=== PATIENT | female | born 1930 | race Caucasian/White ===

== ENCOUNTER 2017-03-15 12:08 | Inpatient (IN) | payer MEDICARE, OTHER ==
[~2017-03-15] VITALS: Ht 152.4 cm; Wt 55.8 kg
[2017-03-15] VITALS (9 sets, daily range): BP systolic 108–172; BP diastolic 53–76
[~2017-03-15 12:08] MED LIST: AMIO200T2 PO; ASPI-482 PO; ATOR20TA58 PO; CLOP75TA PO; HYDR-2666 PO; ISOS60TA2 PO; LATA2.5D3 EACHEYE; LEVO100T5 PO; LEVO75TA5 PO; LISI10TA2 PO; MAGN2400 PO; PANT40TA5 PO; RANO500T2 PO; SIMV20TA PO; SIMV40TA3 PO
[2017-03-15] MEDS ORDERED: IV NORMAL SALINE 1000ML BAG 1,000 ML IV ONE (12:15)
--- NOTE | 2017-03-15 12:33 | PHYS DOC ---
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 Patient states that her symptoms started approximately 1-1.5 hours prior to arrival. Patient states that she notices symptoms after taking a shower this morning but is unable to determine what time that this occurred. A daughter however was able to confirm that onset of symptoms took place within the aforementioned window. Patient has history of atrial fibrillation and currently has a pacemaker in place. Patient also has history of myocardial infarction and follows with Dr. Groves of cardiology. Patient is reportedly able to ambulate independently and her current mental status is significantly distorted compared to baseline. Patient denies any pain currently. Patient states that she is having numbness along the left side of her face and left upper extremity. Review of Systems Review of Systems Constitutional: Denies fever or chills [] Eyes: Denies change in visual acuity, redness, or eye pain [] HENT: Denies nasal congestion or sore throat [] Respiratory: Denies cough or shortness of breath [] Cardiovascular: No additional information not addressed in HPI [] GI: Denies abdominal pain, nausea, vomiting, bloody stools or diarrhea [] : Denies dysuria or hematuria [] Musculoskeletal: Denies back pain or joint pain [] Integument: Denies rash or skin lesions [] Neurologic: Left-sided weakness, dysarthria, numbness [] Current Medications Current Medications Current Medications Medications (Trade) Dose Ordered Sig/[place] Start Time Stop Time Status Last Admin Dose Admin Alteplase, Recombinant 0 ml @ 0 mls/hr Q1H 03/15/17 12:45 03/15/17 12:52 DC 03/15/17 13:14 0 MLS/HR Diphenhydramine HCl (Benadryl) 25 mg 1X ONCE 03/15/17 12:45 03/15/17 12:52 DC 03/15/17 12:50 25 MG Famotidine (Pepcid) 20 mg 1X ONCE 03/15/17 12:45 03/15/17 12:52 DC 03/15/17 12:50 20 MG Hydrocortisone Sodium Succinate (Solu-Cortef) 125 mg 1X ONCE 03/15/17 13:00 03/15/17 13:01 DC 03/15/17 12:49 125 MG Info (Do NOT chart on this entry -- for MONITORING) 1 each PRN DAILY PRN 03/15/17 13:15 03/17/17 13:14 Iohexol (Omnipaque 300 Mg/ml) 60 ml 1X ONCE 03/15/17 14:45 03/15/17 14:46 DC 03/15/17 14:43 60 ML Iohexol (Omnipaque 350 Mg/ml) 75 ml 1X ONCE 03/15/17 13:15 03/15/17 13:16 DC Methylprednisolone Sodium Succinate (Solu-Medrol 125mg Vial) 125 mg STK-MED ONCE 03/15/17 12:46 03/15/17 12:48 DC Ondansetron HCl (Zofran) 4 mg PRN Q8HRS PRN 03/15/17 15:00 03/16/17 14:59 Sodium Chloride 50 ml @ 0 mls/hr 1X ONCE 03/15/17 12:45 03/15/17 12:52 DC 03/15/17 14:11 45.6 MLS/HR Allergies Allergies Allergies Coded Allergies Type Severity Reaction Last Updated Verified iodine Allergy Intermediate 07/13/15 Yes codeine Adverse Reaction Intermediate N/V 07/13/15 Yes meperidine Adverse Reaction Intermediate N/V 07/13/15 Yes morphine Adverse Reaction Intermediate N/V 07/13/15 Yes Physical Exam Physical Exam Constitutional: Alert, afebrile, appears ill. [] HENT: Normocephalic, atraumatic, bilateral external ears normal, oropharynx moist, no oral exudates, nose normal. [] Eyes: PERRLA, EOMI, conjunctiva normal, no discharge. [] Neck: Normal range of motion, no tenderness, supple, no stridor. [] Cardiovascular: Normal rate, irregular rhythm, no murmur [] Lungs & Thorax: Bilateral breath sounds clear to auscultation [] Abdomen: Bowel sounds normal, soft, no tenderness, no masses, no pulsatile masses. [] Skin: Warm, dry, no erythema, no rash. [] Back: No tenderness, no CVA tenderness. [] Extremities: No tenderness, no cyanosis, no clubbing, ROM intact, no edema. [] Neurologic: Alert and oriented X 3, left-sided facial droop present, dysarthria present, mild aphasia present, left pronator drift in upper extremity present, decreased sensation along left face and left upper extremity to light touch, equal events traffic controller strength bilaterally. [] Current Patient Data Vital Signs Vital Signs Date Time Temp Pulse Resp B/P (MAP) Pulse Ox O2 Delivery O2 Flow Rate FiO2 03/15/17 14:48 60 16 137/65 (89) 100 Nasal Cannula 2.0 03/15/17 12:08 97.3 97.3 Lab Values Laboratory Tests Test 03/15/17 12:24 03/15/17 12:41 03/15/17 14:15 White Blood Count 6.3 x10^3/uL (4.0-11.0) Red Blood Count 2.42 x10^6/uL (3.50-5.40) L Hemoglobin 7.9 g/dL (12.0-15.5) L Hematocrit 23.6 % (36.0-47.0) L Mean Corpuscular Volume 97 fL (79-100) Mean Corpuscular Hemoglobin 33 pg (25-35) Mean Corpuscular Hemoglobin Concent 34 g/dL (31-37) Red Cell Distribution Width 16.3 % (11.5-14.5) H Platelet Count 201 x10^3/uL (140-400) Neutrophils (%) (Auto) 67 % (31-73) Lymphocytes (%) (Auto) 26 % (24-48) Monocytes (%) (Auto) 5 % (0-9) Eosinophils (%) (Auto) 1 % (0-3) Basophils (%) (Auto) 1 % (0-3) Neutrophils # (Auto) 4.2 x10^3uL (1.8-7.7) Lymphocytes # (Auto) 1.6 x10^3/uL (1.0-4.8) Monocytes # (Auto) 0.3 x10^3/uL (0.0-1.1) Eosinophils # (Auto) 0.1 x10^3/uL (0.0-0.7) Basophils # (Auto) 0.1 x10^3/uL (0.0-0.2) Prothrombin Time 13.0 SEC (11.7-14.0) Prothrombin Time INR 1.0 (0.8-1.1) PTT 22 SEC (24-38) L Sodium Level 138 mmol/L (136-145) Potassium Level 4.0 mmol/L (3.5-5.1) Chloride Level 105 mmol/L (98-107) Carbon Dioxide Level 23 mmol/L (21-32) Anion Gap 10 (6-14) 17 mmol/L (6-14) H Blood Urea Nitrogen 23 mg/dL (7-20) H Creatinine 0.9 mg/dL (0.6-1.0) Estimated GFR (Cockcroft-Gault) 59.5 BUN/Creatinine Ratio 26 (6-20) H Glucose Level 101 mg/dL (70-99) H 94 mg/dL (70-99) Calcium Level 8.9 mg/dL (8.5-10.1) Magnesium Level 2.4 mg/dL (1.8-2.4) Total Bilirubin 0.5 mg/dL (0.2-1.0) Aspartate Amino Transferase (AST) 21 U/L (15-37) Alanine Aminotransferase (ALT) 23 U/L (14-59) Alkaline Phosphatase 78 U/L (46-116) Total Protein 6.1 g/dL (6.4-8.2) L Albumin 3.3 g/dL (3.4-5.0) L Albumin/Globulin Ratio 1.2 (1.0-1.7) POC Hemoglobin 7.1 g/dL (12-15) L POC Hematocrit 21 % (36-40) L POC Sodium 138 mmol/L (135-145) POC Potassium 3.9 mmol/L (3.5-5.0) POC Chloride 107 mmol/L (98-110) POC Total CO2 19 mmol/L (23-32) L POC Blood Urea Nitrogen 22 mg/dL (8-26) POC Creatinine 0.8 mg/dL (0.5-1.4) POC Ionized Calcium (Stephane) 1.12 mmol/L (1.13-1.32) L Urine Collection Type Unknown Urine Color Straw Urine Clarity Clear Urine pH 7.5 Urine Specific [place] 1.010 Urine Protein Negative mg/dL (NEG-TRACE) Urine Glucose (UA) Negative mg/dL (NEG) Urine Ketones (Stick) Negative mg/dL (NEG) Urine Blood Negative (NEG) Urine Nitrite Negative (NEG) Urine Bilirubin Negative (NEG) Urine Urobilinogen Dipstick 0.2 mg/dL (0.2 mg/dL) Urine Leukocyte Esterase Trace (NEG) Urine RBC 0 /HPF (0-2) Urine WBC Occ /HPF (0-4) Urine Squamous Epithelial Cells Occ /LPF Urine Bacteria Few /HPF (0-FEW) Urine Mucus Slight /LPF Laboratory Tests 03/15/17 12:24 Laboratory Tests 03/15/17 12:24 03/15/17 12:41 EKG EKG Interpreted by me: Heart rate 60, atrial fibrillation, leftward axis, no acute ST/T-wave abnormalities present [] Radiology/Procedures Radiology/Procedures [place] [id number] IMAGING REPORT Signed PATIENT: ANDREINA BENNETT ACCOUNT: [id number] : 1930 LOCATION: ER AGE: 86 SEX: F EXAM STATUS: PRE ER ORD. PHYSICIAN: DESTINI PETE MD REASON: weakness PROCEDURE: PORTABLE CHEST 1V Indication left-sided weakness. Suspect CVA. Protocol exam. A single view of the chest was obtained. Comparison is made to an exam almost 2 years earlier. Postoperative changes are noted. There is a bipolar cardiac pacing device. A cardiac stent is noted. Pulmonary vessels are normal. There is no acute parenchymal infiltrate. Significant pleural fluid is not present and there is no pneumothorax. IMPRESSION: No acute finding apparent in the chest DICTATED and SIGNED BY: SHIRLENE BENITO MD DATE: 03/15/17 3094 CC: JOCY MASON MD; DESTINI PETE MD ~ [address] [id number] IMAGING REPORT Signed PATIENT: ANDREINA BENNETT ACCOUNT: [id number] : 1930 LOCATION: ER AGE: 86 SEX: F EXAM STATUS: PRE ER ORD. PHYSICIAN: DESTINI PETE MD REASON: facial droop PROCEDURE: CT CODE STROKE HEAD WO Indication left facial droop. Code stroke Noncontrast images of the head were obtained and are compared to a study 08/09/2016. Critical results were communicated to Dr. Pete, in the emergency room, at the time of dictation. The calvarium appears unremarkable. The visualized paranasal sinuses appear normal. There is no subdural or epidural hematoma. No mass or midline shift is seen. There is no evidence of hemorrhage. There are lucencies in the deep white matter compatible with microvascular disease. An acute finding is not apparent on noncontrast imaging. IMPRESSION: No acute finding seen on noncontrast CT images of the head PQRS Compliance Statement: One or more of the following individualized dose reduction techniques were utilized for this examination: 1. Automated exposure control 2. Adjustment of the mA and/or kV according to patient size 3. Use of iterative reconstruction technique DICTATED and SIGNED BY: SHIRLENE BENITO MD DATE: 03/15/17 1235 CC: JOCY MASON MD; DESTINI PETE MD ~ [address] [id number] IMAGING REPORT Signed PATIENT: ANDREINA BENNETT ACCOUNT: [id number] : 1930 LOCATION: ER AGE: 86 SEX: F EXAM STATUS: REG ER ORD. PHYSICIAN: DESTINI PETE MD REASON: left-sided weakness PROCEDURE: CT ANGIOGRAPHY HEAD AND NECK Indication left-sided weakness and confusion. Suspect CVA. CTA targeted to the great vessels off the arch and carotid arteries through the [place] was performed. Images were reformatted in the coronal and sagittal planes. Volume rendered images were also generated and reviewed. 60 cc of Omnipaque 300 was administered intravenously. The patient reportedly is allergic dye diameter and was premedicated under the supervision of the members of the department of emergency medicine. The lung apices are clear. There is no significant soft tissue finding seen in the neck. There are degenerative changes in the cervical spine. The origination of the innominate artery off the arch is unremarkable. The origin of the left common carotid is unremarkable as is the origination of the left subclavian. Plaquing along the arch of the aorta is noted. The innominate artery bifurcates unremarkably into the right common carotid and right subclavian arteries. The visualized portion of the subclavian is unremarkable. The right common carotid is unremarkable. There is slight plaquing at the bifurcation. There is no significant stenosis. The right internal carotid is unremarkable. The horizontal and cavernous segments are unremarkable. Some calcification is seen associated with the cavernous segment and the supraclinoid segment. The left common carotid is also unremarkable. Modest plaquing is seen at the bifurcation but no significant stenosis. The left internal carotid demonstrates moderate plaquing but no marked stenosis. The horizontal and cavernous segments appear normal. There is some calcification seen associated with the cavernous and supraclinoid segments. The vertebral arteries originate unremarkably off their respective subclavian arteries. The left vertebral is dominant. The right vertebral is quite small. The intracranial portion of the right vertebral is not well demonstrated but it appears to unite with the left vertebral. The basilar artery is unremarkable. A 1 and M1 segments bilaterally appear unremarkable. No significant vascular anomaly is seen supratentorially. IMPRESSION: No significant arterial narrowing is seen associated with the carotid systems. The right vertebral is quite small and the left is dominant. No significant intracranial vascular anomaly is seen Note: Stenosis calculations for CT, MR and conventional angiography are based upon determination of the distal ICA diameter in accordance with the NASCET methodology. Stenosis calculations for doppler studies are derived from validated velocity criteria which are known to correlate with NASCET methodology of determining stenosis. DICTATED and SIGNED BY: SHIRLENE BENITO MD DATE: 03/15/17 0530 CC: JOCY MASON MD; DESTINI PETE MD ~ [] Course & Med Decision Making Course & Med Decision Making Pertinent Labs and Imaging studies reviewed. (See chart for details) The patient is displaying signs concerning for acute CVA. Patient's NIH score was 6. I consulted Dr. Webber at 4800. He agreed with initiation of TPA therapy and asked due to the patient's symptoms that she be offered interventional therapy and clot retrieval. Patient was administered TPA within 3 hours of onset of symptoms. I contacted Dr. Vargas at 1235. After speaking with him, he agreed with initiation of TPA therapy. He recommended that a CT angiogram be performed and stated that if there was evidence of large vessel occlusion the patient may be a candidate, however there is only distal occlusion the patient would need medical management only. After speaking with the family and the patient, the patient underwent a CT angiogram of the head and neck after being pretreated with Solu-Medrol, Benadryl, and Pepcid due to iodine allergy. Patient underwent CTA imaging which did not reveal a large vessel occlusion. After receiving the results I spoke with Dr. Vargas at 1445. He agreed that the patient would not be a candidate for interventional therapy and recommended medical management. He stated that it would be appropriate for the patient to remain at [facility] for further care. I also contacted Dr. Webber with results and he was in agreement and agreed to consult on patient in hospital. Patient was admitted to Dr. bauman and will be transferred to ICU for further care. Critical care time excluding procedures: 100 minutes Dragon Disclaimer Dragon Disclaimer This electronic medical record was generated, in whole or in part, using a voice recognition dictation system. Departure Departure Impression: Primary Impression: Acute CVA (cerebrovascular accident) Disposition: ADMITTED INPATIENT Admitting Physician: Carmle Bauman Condition: CRITICAL Referrals: JOCY MASON MD (PCP) DESTINI PETE MD March 15, 2017 12:33
[2017-03-15 12:38] LABS: BASO # 0.1 x10^3/uL (0.0-0.2); BASO % 1 % (0-3); EOS % 1 % (0-3); HEMATOCRIT 23.6 % (36.0-47.0); HEMOGLOBIN 7.9 g/dL (12.0-15.5); LYMPH # 1.6 x10^3/uL (1.0-4.8); LYMPH % 26 % (24-48); MEAN CORPUSCULAR HEMOGLOBIN 33 pg (25-35); MEAN CORPUSCULAR HGB CONC 34 g/dL (31-37); MEAN CORPUSCULAR VOLUME 97 fL (79-100); MONO % 5 % (0-9); NEUT % 67 % (31-73); PLATELET COUNT 201 x10^3/uL (140-400); RED BLOOD COUNT 2.42 x10^6/uL (3.50-5.40); RED CELL DISTRIBUTION WIDTH 16.3 % (11.5-14.5); WHITE BLOOD COUNT 6.3 x10^3/uL (4.0-11.0)
--- NOTE | 2017-03-15 12:42 | RAD ---
Indication left facial droop. Code stroke Noncontrast images of the head were obtained and are compared to a study 08/09/2016. Critical results were communicated to Dr. Pete, in the emergency room, at the time of dictation. The calvarium appears unremarkable. The visualized paranasal sinuses appear normal. There is no subdural or epidural hematoma. No mass or midline shift is seen. There is no evidence of hemorrhage. There are lucencies in the deep white matter compatible with microvascular disease. An acute finding is not apparent on noncontrast imaging. IMPRESSION: No acute finding seen on noncontrast CT images of the head PQRS Compliance Statement: One or more of the following individualized dose reduction techniques were utilized for this examination: 1. Automated exposure control 2. Adjustment of the mA and/or kV according to patient size 3. Use of iterative reconstruction technique
[2017-03-15 12:44] LABS: POTASSIUM ISTAT 3.9 mmol/L (3.5-5.0)
--- NOTE | 2017-03-15 12:44 | RAD ---
Indication left-sided weakness. Suspect CVA. Protocol exam. A single view of the chest was obtained. Comparison is made to an exam almost 2 years earlier. Postoperative changes are noted. There is a bipolar cardiac pacing device. A cardiac stent is noted. Pulmonary vessels are normal. There is no acute parenchymal infiltrate. Significant pleural fluid is not present and there is no pneumothorax. IMPRESSION: No acute finding apparent in the chest
[2017-03-15] MEDS ORDERED: ALTEPLASE IV SCH (12:45)
[2017-03-15] MEDS ORDERED: ALTEPLASE IV ONE (12:45)
[2017-03-15] MEDS ORDERED: diphenhydrAMINE 50 MG/ML VIAL IVP ONE (12:45)
[2017-03-15] MEDS ORDERED: FAMOTIDINE 20 MG/2 ML VIAL IVP ONE (12:45)
[2017-03-15] MEDS ORDERED: methylPREDNISolone SOD SUCC PF 125 MG/2 ML VIAL. IV ONE (12:45)
[2017-03-15] MEDS ORDERED: IV NORMAL SALINE 50ML 50 ML IV ONE (12:45)
[2017-03-15] MEDS ORDERED: methylPREDNISolone SOD SUCC PF 125 MG/2 ML VIAL. ONE (12:46)
[2017-03-15 12:48] LABS: CALCIUM 8.9 mg/dL (8.5-10.1); CREATININE 0.9 mg/dL (0.6-1.0); GFR 59.5
[2017-03-15 12:56] LABS: ALBUMIN 3.3 g/dL (3.4-5.0); ALBUMIN/GLOBULIN RATIO 1.2 (1.0-1.7); MAGNESIUM 2.4 mg/dL (1.8-2.4); TOTAL BILIRUBIN 0.5 mg/dL (0.2-1.0); TOTAL PROTEIN 6.1 g/dL (6.4-8.2)
[2017-03-15] MEDS ORDERED: HYDROCORTISONE SOD SUCC/PF 100 MG/2 ML VIAL. IV ONE (13:00)
[2017-03-15] MEDS ORDERED: CONTRAST GIVEN MC PRN (13:15)
[2017-03-15] MEDS ORDERED: IOHEXOL 350 MG/ML 100 ML VIAL. IV ONE (13:15)
--- NOTE | 2017-03-15 13:26 | PDOC2 ---
NEUROLOGY CONSULT Date of Admission Date of Admission DATE: 03/15/17 TIME: 13:15 Reason for Consult Reason for Consult: Stroke symptoms Referring Physician Referring Physician: Dr. Pete Source Source: Caregiver, Chart review, Patient History of Present Illness History of Present Illness The patient is an 86-year-old right-handed female who was taking a shower and noticed shortness of breath and the numbness of her whole body, worse on the left. She has been more confused and complains of blurred vision. She had a transient ischemic attack in January 2015 with negative workup. She was numb on the left side done. I saw her in July 2015 for numbness the entire body and my impression was a conversion disorder. The patient also had a stroke in her 20s with 5 days of left-sided weakness, then. She denies headache, diplopia , dysphagia, but has trouble understanding speech and her speech has been slurred this time. She has a history of cardiac disease and had some shortness of breath last night Past Medical History Cardiovascular: CAD, HTN CENTRAL NERVOUS SYSTEM: CVA, TIA, Other (conversion reaction) Hepatobiliary: Other (elevated transaminases last year, resolving) Musculoskeletal: low back pain, Osteoarthritis ENT: Other (glaucoma) Endocrine: Hypothyroidism Past Surgical History Past Surgical History: Pacemaker (and defibrillator), Appendectomy, CABG, Total knee replacement (right), Tonsillectomy, Hysterectomy, Other (removal of temporal lobe tumor, coronary stent, lobectomy, colonic polyps, sacroplasty) Family History Family History: No pertinent hx Social History Social History , lives alone, no alcohol or tobacco Current Medications Current Medications Current Medications Sodium Chloride 1,000 ml @ 125 mls/hr 1X ONCE IV Last administered on 12:51; Start 03/15/17 at 12:15; Stop 03/15/17 at 20:14 Alteplase, Recombinant 0 ml @ 0 mls/hr 1X ONCE IV Last administered on 13:08; Start 03/15/17 at 12:45; Stop 03/15/17 at 12:51; Status DC Alteplase, Recombinant 0 ml @ 0 mls/hr Q1H IV Last administered on 03/15/17 13: 14; Start 03/15/17 at 12:45; Stop 03/15/17 at 12:52; Status DC Sodium Chloride 50 ml @ 0 mls/hr 1X ONCE IV ; Start 03/15/17 at 12:45; Stop 03/15 at 12:52; Status DC Methylprednisolone Sodium Succinate (Solu-Medrol 125mg Vial) 125 mg 1X ONCE IV ; Start 03/15/17 at 12:45; Stop 03/15/17 at 12:48; Status DC Famotidine (Pepcid) 20 mg 1X ONCE IVP Last administered on 03/15/17 12:50; Start 03/15/17 at 12:45; Stop 03/15/17 at 12:52; Status DC Diphenhydramine HCl (Benadryl) 25 mg 1X ONCE IVP Last administered on 12:50; Start 03/15/17 at 12:45; Stop 03/15/17 at 12:52; Status DC Hydrocortisone Sodium Succinate (Solu-Cortef) 125 mg 1X ONCE IV Last administered on 03/15/17 12:49; Start 03/15/17 at 13:00; Stop 03/15/17 at 13:01; Status DC Methylprednisolone Sodium Succinate (Solu-Medrol 125mg Vial) 125 mg STK-MED ONCE .ROUTE ; Start 03/15/17 at 12:46; Stop 03/15/17 at 12:48; Status DC Iohexol (Omnipaque 350 Mg/ml) 75 ml 1X ONCE IV ; Start 03/15/17 at 13:15; Stop 03/15/17 at 13:16 Info (Do NOT chart on this entry -- for MONITORING) 1 each PRN DAILY PRN MC SEE COMMENTS; Start 03/15/17 at 13:15; Stop 03/17/17 at 13:14 Active Scripts Active Reported Hydrocodone-Apap 5-325 (Hydrocodone Bit/Acetaminophen) 1 Each Tablet 1 Tab PO PRN Q6HRS PRN Levothyroxine Sodium 75 Mcg Tablet 75 Mcg PO DAILYAC Milk Of Magnesia (Magnesium Hydroxide) 2,400 Mg/10 Ml Oral.susp 2,400 Mg PO DAILY PRN Atorvastatin Calcium 20 Mg Tablet 1 Mg PO HS Isosorbide Mononitrate Er (Isosorbide Mononitrate) 60 Mg Tab.er.24h 1 Mg PO HS Amiodarone Hcl 200 Mg Tablet 0.5 Tab PO DAILY Pantoprazole Sodium 40 Mg Tablet.dr 1 Tab PO DAILY LAST DOSE GIVEN: DATE: 2014 TIME: 9:00 AM NEXT DOSE DUE: DATE: 2014 TIME: 9:00 AM Aspir 81 (Aspirin) 81 Mg Tablet.dr 1 Tab PO DAILY LAST DOSE GIVEN: DATE: 2014 TIME: 9:00 AM NEXT DOSE DUE: DATE: 2014 TIME: 9:00 AM Clopidogrel (Clopidogrel Bisulfate) 75 Mg Tablet 1 Tab PO DAILY LAST DOSE GIVEN: DATE: 2014 TIME: 9:00 PM NEXT DOSE DUE: DATE: 2014 TIME: 9:00 PM Allergies Allergies: Coded Allergies: iodine (Verified Allergy, Intermediate, 07/13/15) codeine (Verified Adverse Reaction, Intermediate, N/V, 07/13/15) meperidine (Verified Adverse Reaction, Intermediate, N/V, 07/13/15) morphine (Verified Adverse Reaction, Intermediate, N/V, 07/13/15) ROS Review of System Patient denies fevers, chills, weight loss, dyspnea, angina, abdominal pain, change in bowels, or dysuria. 14 point review of systems is negative. Physical Exam Physical Examination PHYSICAL EXAMINATION: Vital signs: see above. General appearance is normal and in no acute distress. HEENT: Normocephalic and nontraumatic. Eyes, nose, ears, and throat are unremarkable. Neck is supple. No lymphadenopathy. No bruits are heard over the carotid artery. No crepitus. NEUROLOGICAL EXAMINATION: Mental Status Examination: Alert. Oriented to time, place, and person. She does have some trouble answering questions, she does follow commands, she complained she cannot understand what I am saying, but she does follow all commands. Pupils are equal round and reactive to light and accommodation. Funduscopic exam: No papilledema. Extraocular movements are intact. Visual field exam shows no defect on the direct confrontation, but she complains of poor visual acuity bilaterally. No motor or sensory deficits on the facial exam. Uvula in the midline and the soft palate elevated symmetrically. No deviation of the tongue to any direction. Gross hearing is normal. Shoulder shrug normal. Muscle tone is normal. Muscle strength is 5. Deep tendon reflexes are 2+ all around. Plantar reflex is with flexion response bilaterally. [id number] test: She cannot see my fingers, she claims, but she had again no trouble with visual [place] to confrontation. Alternative movements are accurate. Gait not tested. Sensory exam shows left hemisensory loss. Vitals VITALS Vital Signs Date Time Temp Pulse Resp B/P (MAP) Pulse Ox O2 Delivery O2 Flow Rate FiO2 03/15/17 12:08 97.3 69 18 183/74 (110) 100 Room Air 97.3 Labs Labs Laboratory Tests Test 03/15/17 12:24 03/15/17 12:41 White Blood Count 6.3 x10^3/uL (4.0-11.0) Red Blood Count 2.42 x10^6/uL (3.50-5.40) Hemoglobin 7.9 g/dL (12.0-15.5) Hematocrit 23.6 % (36.0-47.0) Mean Corpuscular Volume 97 fL (79-100) Mean Corpuscular Hemoglobin 33 pg (25-35) Mean Corpuscular Hemoglobin Concent 34 g/dL (31-37) Red Cell Distribution Width 16.3 % (11.5-14.5) Platelet Count 201 x10^3/uL (140-400) Neutrophils (%) (Auto) 67 % (31-73) Lymphocytes (%) (Auto) 26 % (24-48) Monocytes (%) (Auto) 5 % (0-9) Eosinophils (%) (Auto) 1 % (0-3) Basophils (%) (Auto) 1 % (0-3) Neutrophils # (Auto) 4.2 x10^3uL (1.8-7.7) Lymphocytes # (Auto) 1.6 x10^3/uL (1.0-4.8) Monocytes # (Auto) 0.3 x10^3/uL (0.0-1.1) Eosinophils # (Auto) 0.1 x10^3/uL (0.0-0.7) Basophils # (Auto) 0.1 x10^3/uL (0.0-0.2) Prothrombin Time 13.0 SEC (11.7-14.0) Prothromb Time International Ratio 1.0 (0.8-1.1) Activated Partial Thromboplast Time 22 SEC (24-38) Sodium Level 138 mmol/L (136-145) Potassium Level 4.0 mmol/L (3.5-5.1) Chloride Level 105 mmol/L (98-107) Carbon Dioxide Level 23 mmol/L (21-32) Anion Gap 10 (6-14) 17 mmol/L (6-14) Blood Urea Nitrogen 23 mg/dL (7-20) Creatinine 0.9 mg/dL (0.6-1.0) Estimated GFR (Cockcroft-Gault) 59.5 BUN/Creatinine Ratio 26 (6-20) Glucose Level 101 mg/dL (70-99) 94 mg/dL (70-99) Calcium Level 8.9 mg/dL (8.5-10.1) Magnesium Level 2.4 mg/dL (1.8-2.4) Total Bilirubin 0.5 mg/dL (0.2-1.0) Aspartate Amino Transf (AST/SGOT) 21 U/L (15-37) Alanine Aminotransferase (ALT/SGPT) 23 U/L (14-59) Alkaline Phosphatase 78 U/L (46-116) Total Protein 6.1 g/dL (6.4-8.2) Albumin 3.3 g/dL (3.4-5.0) Albumin/Globulin Ratio 1.2 (1.0-1.7) Bedside Hemoglobin 7.1 g/dL (12-15) Bedside Hematocrit 21 % (36-40) Bedside Sodium 138 mmol/L (135-145) Bedside Potassium 3.9 mmol/L (3.5-5.0) Bedside Chloride 107 mmol/L (98-110) Bedside Total CO2 19 mmol/L (23-32) Bedside Blood Urea Nitrogen 22 mg/dL (8-26) Bedside Creatinine 0.8 mg/dL (0.5-1.4) Bedside Ionized Calcium (Stephane) 1.12 mmol/L (1.13-1.32) Laboratory Tests Test 03/15/17 12:24 03/15/17 12:41 White Blood Count 6.3 x10^3/uL (4.0-11.0) Red Blood Count 2.42 x10^6/uL (3.50-5.40) Hemoglobin 7.9 g/dL (12.0-15.5) Hematocrit 23.6 % (36.0-47.0) Mean Corpuscular Volume 97 fL (79-100) Mean Corpuscular Hemoglobin 33 pg (25-35) Mean Corpuscular Hemoglobin Concent 34 g/dL (31-37) Red Cell Distribution Width 16.3 % (11.5-14.5) Platelet Count 201 x10^3/uL (140-400) Neutrophils (%) (Auto) 67 % (31-73) Lymphocytes (%) (Auto) 26 % (24-48) Monocytes (%) (Auto) 5 % (0-9) Eosinophils (%) (Auto) 1 % (0-3) Basophils (%) (Auto) 1 % (0-3) Neutrophils # (Auto) 4.2 x10^3uL (1.8-7.7) Lymphocytes # (Auto) 1.6 x10^3/uL (1.0-4.8) Monocytes # (Auto) 0.3 x10^3/uL (0.0-1.1) Eosinophils # (Auto) 0.1 x10^3/uL (0.0-0.7) Basophils # (Auto) 0.1 x10^3/uL (0.0-0.2) Prothrombin Time 13.0 SEC (11.7-14.0) Prothromb Time International Ratio 1.0 (0.8-1.1) Activated Partial Thromboplast Time 22 SEC (24-38) Sodium Level 138 mmol/L (136-145) Potassium Level 4.0 mmol/L (3.5-5.1) Chloride Level 105 mmol/L (98-107) Carbon Dioxide Level 23 mmol/L (21-32) Anion Gap 10 (6-14) 17 mmol/L (6-14) Blood Urea Nitrogen 23 mg/dL (7-20) Creatinine 0.9 mg/dL (0.6-1.0) Estimated GFR (Cockcroft-Gault) 59.5 BUN/Creatinine Ratio 26 (6-20) Glucose Level 101 mg/dL (70-99) 94 mg/dL (70-99) Calcium Level 8.9 mg/dL (8.5-10.1) Magnesium Level 2.4 mg/dL (1.8-2.4) Total Bilirubin 0.5 mg/dL (0.2-1.0) Aspartate Amino Transf (AST/SGOT) 21 U/L (15-37) Alanine Aminotransferase (ALT/SGPT) 23 U/L (14-59) Alkaline Phosphatase 78 U/L (46-116) Total Protein 6.1 g/dL (6.4-8.2) Albumin 3.3 g/dL (3.4-5.0) Albumin/Globulin Ratio 1.2 (1.0-1.7) Bedside Hemoglobin 7.1 g/dL (12-15) Bedside Hematocrit 21 % (36-40) Bedside Sodium 138 mmol/L (135-145) Bedside Potassium 3.9 mmol/L (3.5-5.0) Bedside Chloride 107 mmol/L (98-110) Bedside Total CO2 19 mmol/L (23-32) Bedside Blood Urea Nitrogen 22 mg/dL (8-26) Bedside Creatinine 0.8 mg/dL (0.5-1.4) Bedside Ionized Calcium (Stephane) 1.12 mmol/L (1.13-1.32) Images Images CT head negative Assessment/Plan Assessment/Plan Impression: Right hemispheric stroke, but some nonlocalizing symptoms, history of conversion disorder, negative workups in the past. Recommendations: I discussed the case with Dr. Pete, who also discussed the case with Dr. Vargas, neurology, at my suggestion. She is in the TPA window. She may have a large vessel disease. She may have no disease and this may be all psychogenic. She may have small-vessel disease. I also discussed risks, benefits , alternatives with the patient and her family including fatal intracranial bleeding. After this discussion, we will go ahead with intravenous tissue plasminogen activator here, obtain a CT angiogram, and depending on the results keep her here or send her to for endovascular retrieval. Further stroke workup here of course if she stays. Thank you for letting me help with the patient's care. CHARLA HICKEY MD March 15, 2017 13:26
[2017-03-15 14:24] LABS: BILIRUBIN,URINE NEGATIVE (NEG); GLUCOSE,URINE NEGATIVE (NEG); NITRITE,URINE NEGATIVE (NEG); PH,URINE 7.5; PROTEIN,URINE NEGATIVE (NEG-TRACE); UROBILINOGEN,URINE 0.2 mg/dL (0.2 mg/dL)
[2017-03-15 14:45] LABS: BACTERIA,URINE FEW /HPF (0-FEW); RBC,URINE 0 /HPF (0-2); SQUAMOUS EPITHELIAL CELL,UR OCC /LPF; WBC,URINE OCC /HPF (0-4)
[2017-03-15] MEDS ORDERED: IOHEXOL 300 MG/ML 75 ML VIAL IV ONE (14:45)
--- NOTE | 2017-03-15 14:56 | RAD ---
Indication left-sided weakness and confusion. Suspect CVA. CTA targeted to the great vessels off the arch and carotid arteries through the [place] of [place] was performed. Images were reformatted in the coronal and sagittal planes. Volume rendered images were also generated and reviewed. 60 cc of Omnipaque 300 was administered intravenously. The patient reportedly is allergic dye diameter and was premedicated under the supervision of the members of the department of emergency medicine. The lung apices are clear. There is no significant soft tissue finding seen in the neck. There are degenerative changes in the cervical spine. The origination of the innominate artery off the arch is unremarkable. The origin of the left common carotid is unremarkable as is the origination of the left subclavian. Plaquing along the arch of the aorta is noted. The innominate artery bifurcates unremarkably into the right common carotid and right subclavian arteries. The visualized portion of the subclavian is unremarkable. The right common carotid is unremarkable. There is slight plaquing at the bifurcation. There is no significant stenosis. The right internal carotid is unremarkable. The horizontal and cavernous segments are unremarkable. Some calcification is seen associated with the cavernous segment and the supraclinoid segment. The left common carotid is also unremarkable. Modest plaquing is seen at the bifurcation but no significant stenosis. The left internal carotid demonstrates moderate plaquing but no marked stenosis. The horizontal and cavernous segments appear normal. There is some calcification seen associated with the cavernous and supraclinoid segments. The vertebral arteries originate unremarkably off their respective subclavian arteries. The left vertebral is dominant. The right vertebral is quite small. The intracranial portion of the right vertebral is not well demonstrated but it appears to unite with the left vertebral. The basilar artery is unremarkable. A 1 and M1 segments bilaterally appear unremarkable. No significant vascular anomaly is seen supratentorially. IMPRESSION: No significant arterial narrowing is seen associated with the carotid systems. The right vertebral is quite small and the left is dominant. No significant intracranial vascular anomaly is seen Note: Stenosis calculations for CT, MR and conventional angiography are based upon determination of the distal ICA diameter in accordance with the NASCET methodology. Stenosis calculations for doppler studies are derived from validated velocity criteria which are known to correlate with NASCET methodology of determining stenosis.
[2017-03-15] MEDS ORDERED: ONDANSETRON PF 4 MG/2 ML VIAL. IV PRN ×2 (15:00→16:30)
[2017-03-15] MEDS ORDERED: IV NORMAL SALINE 1000ML BAG 1,000 ML IV SCH (15:15)
--- NOTE | 2017-03-15 16:01 | PDOC1 ---
History and Physical Date of Admission Date of Admission DATE: 03/15/17 TIME: 15:55 Identification/Chief Complaint Chief Complaint mental status change Problems: Source Source: Chart review, Patient History of Present Illness History of Present Illness Ms. Banuelos, is an 86-year-old felt off this AM, had new expressive aphasia after some new shortness of breath and diffuse numbness/tingling I saw her in ER after t-PA was initiated, and she feels imprvoed. She has some confusion and blurred vision. Prior weakness with L worse than Right. Neuro noted prior TIA in 2014 with negative workup. She had previously complained of diffuse numbness and tingling with prior neg neuro w/u, concern for conversion disorder, Pt is hard of hearing Past Medical History Cardiovascular: CAD, HTN Pulmonary: No pertinent hx CENTRAL NERVOUS SYSTEM: CVA, TIA, Other (conversion reaction) GI: Other Hepatobiliary: Other (elevated transaminases last year, resolving) Musculoskeletal: low back pain, Osteoarthritis ENT: Other (glaucoma) Endocrine: Hypothyroidism Past Surgical History Past Surgical History: Pacemaker (and defibrillator), Appendectomy, CABG, Total knee replacement (right), Tonsillectomy, Hysterectomy, Other (removal of temporal lobe tumor, coronary stent, lobectomy, colonic polyps, sacroplasty) Family History Family History: No Significant, Hypertension Social History Smoke: No ALCOHOL: none Current Problem List Problem List Problems Medical Problems: (1) Acute CVA (cerebrovascular accident) Status: Acute Problems: Current Medications Current Medications Current Medications Sodium Chloride 1,000 ml @ 125 mls/hr 1X ONCE IV Last administered on 12:51; Start 03/15/17 at 12:15; Stop 03/15/17 at 20:14 Alteplase, Recombinant 0 ml @ 0 mls/hr 1X ONCE IV Last administered on 13:08; Start 03/15/17 at 12:45; Stop 03/15/17 at 12:51; Status DC Alteplase, Recombinant 0 ml @ 0 mls/hr Q1H IV Last administered on 03/15/17 13: 14; Start 03/15/17 at 12:45; Stop 03/15/17 at 12:52; Status DC Sodium Chloride 50 ml @ 0 mls/hr 1X ONCE IV Last administered on 03/15/17 14: 11; Start 03/15/17 at 12:45; Stop 03/15/17 at 12:52; Status DC Methylprednisolone Sodium Succinate (Solu-Medrol 125mg Vial) 125 mg 1X ONCE IV ; Start 03/15/17 at 12:45; Stop 03/15/17 at 12:48; Status DC Famotidine (Pepcid) 20 mg 1X ONCE IVP Last administered on 03/15/17 12:50; Start 03/15/17 at 12:45; Stop 03/15/17 at 12:52; Status DC Diphenhydramine HCl (Benadryl) 25 mg 1X ONCE IVP Last administered on 12:50; Start 03/15/17 at 12:45; Stop 03/15/17 at 12:52; Status DC Hydrocortisone Sodium Succinate (Solu-Cortef) 125 mg 1X ONCE IV Last administered on 03/15/17 12:49; Start 03/15/17 at 13:00; Stop 03/15/17 at 13:01; Status DC Methylprednisolone Sodium Succinate (Solu-Medrol 125mg Vial) 125 mg STK-MED ONCE .ROUTE ; Start 03/15/17 at 12:46; Stop 03/15/17 at 12:48; Status DC Iohexol (Omnipaque 350 Mg/ml) 75 ml 1X ONCE IV ; Start 03/15/17 at 13:15; Stop 03/15/17 at 13:16; Status DC Info (Do NOT chart on this entry -- for MONITORING) 1 each PRN DAILY PRN MC SEE COMMENTS; Start 03/15/17 at 13:15; Stop 03/17/17 at 13:14 Iohexol (Omnipaque 300 Mg/ml) 60 ml 1X ONCE IV Last administered on 03/15/17 14:43; Start 03/15/17 at 14:45; Stop 03/15/17 at 14:46; Status DC Ondansetron HCl (Zofran) 4 mg PRN Q8HRS PRN IV NAUSEA/VOMITING; Start 03/15/17 at 15:00; Stop 03/16/17 at 14:59 Sodium Chloride 1,000 ml @ 125 mls/hr Q8H IV ; Start 03/15/17 at 15:15; Stop 03/16/17 at 15:14 Active Scripts Active Reported Levothyroxine Sodium 75 Mcg Tablet 75 Mcg PO DAILYAC Milk Of Magnesia (Magnesium Hydroxide) 2,400 Mg/10 Ml Oral.susp 2,400 Mg PO DAILY PRN Atorvastatin Calcium 20 Mg Tablet 1 Mg PO HS Isosorbide Mononitrate Er (Isosorbide Mononitrate) 60 Mg Tab.er.24h 1 Mg PO HS Amiodarone Hcl 200 Mg Tablet 0.5 Tab PO DAILY Pantoprazole Sodium 40 Mg Tablet.dr 1 Tab PO DAILY LAST DOSE GIVEN: DATE: 2014 TIME: 9:00 AM NEXT DOSE DUE: DATE: 2014 TIME: 9:00 AM Aspir 81 (Aspirin) 81 Mg Tablet.dr 1 Tab PO DAILY LAST DOSE GIVEN: DATE: 2014 TIME: 9:00 AM NEXT DOSE DUE: DATE: 2014 TIME: 9:00 AM Clopidogrel (Clopidogrel Bisulfate) 75 Mg Tablet 1 Tab PO DAILY LAST DOSE GIVEN: DATE: 2014 TIME: 9:00 PM NEXT DOSE DUE: DATE: 2014 TIME: 9:00 PM Allergies Allergies: Coded Allergies: iodine (Verified Allergy, Intermediate, 07/13/15) codeine (Verified Adverse Reaction, Intermediate, N/V, 07/13/15) meperidine (Verified Adverse Reaction, Intermediate, N/V, 07/13/15) morphine (Verified Adverse Reaction, Intermediate, N/V, 07/13/15) ROS General: No: Chills, Night Sweats, Fatigue, Malaise, Appetite, Other PSYCHOLOGICAL ROS: No: Anxiety, Behavioral Disorder, Concentration difficultie , Decreased libido, Depression, Disorientation, Hallucinations, Hostility, Irritablity, Memory difficulties, Mood Swings, Obsessive thoughts, Physical abuse, Sexual abuse, Sleep disturbances, Suicidal ideation, Other Eyes: No Blurry vision, No Decreased vision, No Double vision, No Dry eyes, No Excessive tearing, No Eye Pain, No Itchy Eyes, No Loss of vision, No Photophobia , No Scotomata, No Uses contacts, No Uses glasses, No Other HEENT: No: Heacaches, Visual Changes, Hearing change, Nasal congestion, Nasal discharge, Oral lesions, Sinus pain, Sore Throat, Epistaxis, Sneezing, Snoring, Tinnitus, Vertigo, Vocal changes, Other Respiratory: No: Cough, Hemoptysis, Orthopnea, Pleuritic Pain, Shortness of breath, SOB with excertion, Sputum Changes, Stridor, Tachypnea, Wheezing, Other Cardiovascular: No Chest Pain, No Palpitations, No Orthopnea, No Paroxysmal Noc. Dyspnea, No Edema, No Lt Headedness, No Other Gastrointestinal: No Nausea, No Vomiting, No Abdominal Pain, No Diarrhea, No Constipation, No Melena, No Hematochezia, No Other Genitourinary: No Dysuria, No Frequency, No Incontinence, No Hematuria, No Retention, No Discharge, No Urgency, No Pain, No Flank Pain, No Other, No , No , No , No , No , No , No Musculoskeletal: No Gait Disturbance, No Joint Pain, No Joint Stiffness, No Joint Swelling, No Muscle Pain, No Muscular Weakness, No Pain In:, No Swelling In:, No Other Neurological: No Behavorial Changes, No Bowel/Bladder ControlChng, No Confusion , No Dizziness, No Gait Disturbance, No Headaches, No Impaired Coord/balance, No Memory Loss, No Numbness/Tingling, No Seizures, No Speech Problems, No Tremors, No Visual Changes, No Weakness, No Other Skin: No Dry Skin, No Eczema, No Hair Changes, No Lumps, No Mole Changes, No Mottling, No Nail Changes, No Pruritus, No Rash, No Skin Lesion Changes, No Other, No Acne Physical Exam General: Alert, Oriented X3, Cooperative, No acute distress HEENT: Atraumatic, PERRLA, EOMI Lungs: Clear to auscultation, Normal air movement Heart: S1S2 Abdomen: Normal bowel sounds, Soft Rectal Exam: not examined Extremities: No clubbing, No edema Skin: No rashes Neuro: Normal speech, Sensation intact Psych/Mental Status: Mental status NL, Mood NL Vitals Vitals Vital Signs Date Time Temp Pulse Resp B/P (MAP) Pulse Ox O2 Delivery O2 Flow Rate FiO2 03/15/17 14:48 60 16 137/65 (89) 100 Nasal Cannula 2.0 03/15/17 12:08 97.3 97.3 Labs Labs Laboratory Tests Test 03/15/17 12:24 03/15/17 12:41 03/15/17 14:15 White Blood Count 6.3 x10^3/uL (4.0-11.0) Red Blood Count 2.42 x10^6/uL (3.50-5.40) Hemoglobin 7.9 g/dL (12.0-15.5) Hematocrit 23.6 % (36.0-47.0) Mean Corpuscular Volume 97 fL (79-100) Mean Corpuscular Hemoglobin 33 pg (25-35) Mean Corpuscular Hemoglobin Concent 34 g/dL (31-37) Red Cell Distribution Width 16.3 % (11.5-14.5) Platelet Count 201 x10^3/uL (140-400) Neutrophils (%) (Auto) 67 % (31-73) Lymphocytes (%) (Auto) 26 % (24-48) Monocytes (%) (Auto) 5 % (0-9) Eosinophils (%) (Auto) 1 % (0-3) Basophils (%) (Auto) 1 % (0-3) Neutrophils # (Auto) 4.2 x10^3uL (1.8-7.7) Lymphocytes # (Auto) 1.6 x10^3/uL (1.0-4.8) Monocytes # (Auto) 0.3 x10^3/uL (0.0-1.1) Eosinophils # (Auto) 0.1 x10^3/uL (0.0-0.7) Basophils # (Auto) 0.1 x10^3/uL (0.0-0.2) Prothrombin Time 13.0 SEC (11.7-14.0) Prothromb Time International Ratio 1.0 (0.8-1.1) Activated Partial Thromboplast Time 22 SEC (24-38) Sodium Level 138 mmol/L (136-145) Potassium Level 4.0 mmol/L (3.5-5.1) Chloride Level 105 mmol/L (98-107) Carbon Dioxide Level 23 mmol/L (21-32) Anion Gap 10 (6-14) 17 mmol/L (6-14) Blood Urea Nitrogen 23 mg/dL (7-20) Creatinine 0.9 mg/dL (0.6-1.0) Estimated GFR (Cockcroft-Gault) 59.5 BUN/Creatinine Ratio 26 (6-20) Glucose Level 101 mg/dL (70-99) 94 mg/dL (70-99) Calcium Level 8.9 mg/dL (8.5-10.1) Magnesium Level 2.4 mg/dL (1.8-2.4) Total Bilirubin 0.5 mg/dL (0.2-1.0) Aspartate Amino Transf (AST/SGOT) 21 U/L (15-37) Alanine Aminotransferase (ALT/SGPT) 23 U/L (14-59) Alkaline Phosphatase 78 U/L (46-116) Total Protein 6.1 g/dL (6.4-8.2) Albumin 3.3 g/dL (3.4-5.0) Albumin/Globulin Ratio 1.2 (1.0-1.7) Bedside Hemoglobin 7.1 g/dL (12-15) Bedside Hematocrit 21 % (36-40) Bedside Sodium 138 mmol/L (135-145) Bedside Potassium 3.9 mmol/L (3.5-5.0) Bedside Chloride 107 mmol/L (98-110) Bedside Total CO2 19 mmol/L (23-32) Bedside Blood Urea Nitrogen 22 mg/dL (8-26) Bedside Creatinine 0.8 mg/dL (0.5-1.4) Bedside Ionized Calcium (Stephane) 1.12 mmol/L (1.13-1.32) Urine Collection Type Unknown Urine Color Straw Urine Clarity Clear Urine pH 7.5 Urine Specific Elmo 1.010 Urine Protein Negative mg/dL (NEG-TRACE) Urine Glucose (UA) Negative mg/dL (NEG) Urine Ketones (Stick) Negative mg/dL (NEG) Urine Blood Negative (NEG) Urine Nitrite Negative (NEG) Urine Bilirubin Negative (NEG) Urine Urobilinogen Dipstick 0.2 mg/dL (0.2 mg/dL) Urine Leukocyte Esterase Trace (NEG) Urine RBC 0 /HPF (0-2) Urine WBC Occ /HPF (0-4) Urine Squamous Epithelial Cells Occ /LPF Urine Bacteria Few /HPF (0-FEW) Urine Mucus Slight /LPF Laboratory Tests Test 03/15/17 12:24 03/15/17 12:41 03/15/17 14:15 White Blood Count 6.3 x10^3/uL (4.0-11.0) Red Blood Count 2.42 x10^6/uL (3.50-5.40) Hemoglobin 7.9 g/dL (12.0-15.5) Hematocrit 23.6 % (36.0-47.0) Mean Corpuscular Volume 97 fL (79-100) Mean Corpuscular Hemoglobin 33 pg (25-35) Mean Corpuscular Hemoglobin Concent 34 g/dL (31-37) Red Cell Distribution Width 16.3 % (11.5-14.5) Platelet Count 201 x10^3/uL (140-400) Neutrophils (%) (Auto) 67 % (31-73) Lymphocytes (%) (Auto) 26 % (24-48) Monocytes (%) (Auto) 5 % (0-9) Eosinophils (%) (Auto) 1 % (0-3) Basophils (%) (Auto) 1 % (0-3) Neutrophils # (Auto) 4.2 x10^3uL (1.8-7.7) Lymphocytes # (Auto) 1.6 x10^3/uL (1.0-4.8) Monocytes # (Auto) 0.3 x10^3/uL (0.0-1.1) Eosinophils # (Auto) 0.1 x10^3/uL (0.0-0.7) Basophils # (Auto) 0.1 x10^3/uL (0.0-0.2) Prothrombin Time 13.0 SEC (11.7-14.0) Prothromb Time International Ratio 1.0 (0.8-1.1) Activated Partial Thromboplast Time 22 SEC (24-38) Sodium Level 138 mmol/L (136-145) Potassium Level 4.0 mmol/L (3.5-5.1) Chloride Level 105 mmol/L (98-107) Carbon Dioxide Level 23 mmol/L (21-32) Anion Gap 10 (6-14) 17 mmol/L (6-14) Blood Urea Nitrogen 23 mg/dL (7-20) Creatinine 0.9 mg/dL (0.6-1.0) Estimated GFR (Cockcroft-Gault) 59.5 BUN/Creatinine Ratio 26 (6-20) Glucose Level 101 mg/dL (70-99) 94 mg/dL (70-99) Calcium Level 8.9 mg/dL (8.5-10.1) Magnesium Level 2.4 mg/dL (1.8-2.4) Total Bilirubin 0.5 mg/dL (0.2-1.0) Aspartate Amino Transf (AST/SGOT) 21 U/L (15-37) Alanine Aminotransferase (ALT/SGPT) 23 U/L (14-59) Alkaline Phosphatase 78 U/L (46-116) Total Protein 6.1 g/dL (6.4-8.2) Albumin 3.3 g/dL (3.4-5.0) Albumin/Globulin Ratio 1.2 (1.0-1.7) Bedside Hemoglobin 7.1 g/dL (12-15) Bedside Hematocrit 21 % (36-40) Bedside Sodium 138 mmol/L (135-145) Bedside Potassium 3.9 mmol/L (3.5-5.0) Bedside Chloride 107 mmol/L (98-110) Bedside Total CO2 19 mmol/L (23-32) Bedside Blood Urea Nitrogen 22 mg/dL (8-26) Bedside Creatinine 0.8 mg/dL (0.5-1.4) Bedside Ionized Calcium (Stephane) 1.12 mmol/L (1.13-1.32) Urine Collection Type Unknown Urine Color Straw Urine Clarity Clear Urine pH 7.5 Urine Specific Elmo 1.010 Urine Protein Negative mg/dL (NEG-TRACE) Urine Glucose (UA) Negative mg/dL (NEG) Urine Ketones (Stick) Negative mg/dL (NEG) Urine Blood Negative (NEG) Urine Nitrite Negative (NEG) Urine Bilirubin Negative (NEG) Urine Urobilinogen Dipstick 0.2 mg/dL (0.2 mg/dL) Urine Leukocyte Esterase Trace (NEG) Urine RBC 0 /HPF (0-2) Urine WBC Occ /HPF (0-4) Urine Squamous Epithelial Cells Occ /LPF Urine Bacteria Few /HPF (0-FEW) Urine Mucus Slight /LPF VTE Prophylaxis Ordered VTE Prophylaxis Devices: Yes VTE Pharmacological Prophylaxi: Yes Assessment/Plan Assessment/Plan CVA admit to ICU tPA given Neuro to follow CTA neg for intervention needed CAD, s/p CABG, w/ pacer for heart block, HR 60, paced Dr. Valerio to follow admit CLAUDINE NICHOLSON MD March 15, 2017 16:01
[2017-03-15] MEDS ORDERED: LABETALOL 20 MG/4 ML DISP.SYRIN. IV PRN (16:30)
[2017-03-15] MEDS ORDERED: ACETAMINOPHEN 325 MG SUPP.RECT. PR PRN (16:30)
[2017-03-15] MEDS ORDERED: ACETAMINOPHEN 325 MG TABLET. PO PRN (16:30)
[2017-03-15] MEDS: ATORVASTATIN CALCIUM 20 MG TABLET PO SCH (20:56)
[2017-03-15] MEDS: MAGNESIUM HYDROXIDE 2,400 MG/30 ML ORAL.SUSP. PO SCH (20:56)
[2017-03-15] MEDS: IV NORMAL SALINE 1000ML BAG 1,000 ML IV SCH (20:56)
[2017-03-16] VITALS (16 sets, daily range): BP systolic 94–153; BP diastolic 46–78
[2017-03-16 06:39] LABS: BASO % 1 % (0-3); EOS % 0 % (0-3); LYMPH # 1.5 x10^3/uL (1.0-4.8); LYMPH % 29 % (24-48); MEAN CORPUSCULAR HEMOGLOBIN 33 pg (25-35); MEAN CORPUSCULAR HGB CONC 33 g/dL (31-37); MEAN CORPUSCULAR VOLUME 98 fL (79-100); MONO % 5 % (0-9); NEUT % 64 % (31-73); PLATELET COUNT 155 x10^3/uL (140-400); RED BLOOD COUNT 1.89 x10^6/uL (3.50-5.40); WHITE BLOOD COUNT 5.1 x10^3/uL (4.0-11.0)
[2017-03-16 06:48] LABS: HEMATOCRIT 18.6 % (36.0-47.0); HEMOGLOBIN 6.2 g/dL (12.0-15.5)
[2017-03-16 06:56] LABS: CREATININE 0.7 mg/dL (0.6-1.0); GFR 79.5; POTASSIUM 3.1 mmol/L (3.5-5.1)
[2017-03-16 06:59] LABS: CHOLESTEROL/HDL RATIO 2.8
[2017-03-16] MEDS: IV NORMAL SALINE 1000ML BAG 1,000 ML IV SCH (07:18)
--- NOTE | 2017-03-16 09:21 | RAD ---
Indication CVA. Grayscale color Doppler and spectral imaging was performed. The examination was targeted to the carotid bifurcations. On the right there is some minimal plaquing. The color Doppler images do not suggest significant turbulence. The common carotid waveform and velocities are normal. The internal carotid waveform and velocities are also normal. The external carotid has a slightly elevated peak velocity consistent with mild incidental stenosis associated with this vessel. The vertebral artery is quite diminutive. On the left there is also some atherosclerotic plaquing. The color Doppler images do not suggest significant turbulence. The common carotid waveform and velocities are normal. The internal carotid waveform and velocities are also normal. The external carotid has a normal appearance. The left vertebral is dominant. IMPRESSION: No evidence of hemodynamically significant stenosis at either carotid bifurcation. Stenosis 0-50%. Note: Stenosis calculations for CT, MR and conventional angiography are based upon determination of the distal ICA diameter in accordance with the NASCET methodology. Stenosis calculations for doppler studies are derived from validated velocity criteria which are known to correlate with NASCET methodology of determining stenosis.
[2017-03-16] MEDS ORDERED: POTASSIUM CHLORIDE 20 MEQ TABLET.ER. PO ONE (10:30)
[2017-03-16] MEDS ORDERED: AMIODARONE HCL 100 MG TABLET PO SCH (11:00)
--- NOTE | 2017-03-16 11:13 | PDOC ---
PROGRESS NOTES Chief Complaint Chief Complaint acute CVA with expressive aphasia CVA, admit to ICU, tPA given w/ good improvement Hgb dropped overnight, new anemia, PRBC ordered, CTA neg for intervention needed CAD, s/p CABG, w/ pacer for heart block, HR 60, paced hypoklamia, replace GERD, po protonix hypothyroid History of Present Illness History of Present Illness try pt and ot and speech no event up to chair she reports that after t-PA started that her symptoms improved to baseline family in room, discussed plan Vitals Vitals Vital Signs Date Time Temp Pulse Resp B/P (MAP) Pulse Ox O2 Delivery O2 Flow Rate FiO2 03/16/17 09:00 64 23 153/78 (103) 100 Room Air 03/16/17 03:00 97.7 97.7 03/16/17 00:00 2.0 Physical Exam General: Alert, Oriented X3, Cooperative, No acute distress Lungs: Clear Abdomen: Normal bowel sounds, Soft Extremities: No clubbing, No edema Skin: No rashes Labs LABS Laboratory Tests Test 03/15/17 12:24 03/15/17 12:41 03/15/17 14:15 03/16/17 05:00 White Blood Count 6.3 x10^3/uL (4.0-11.0) 5.1 x10^3/uL (4.0-11.0) Red Blood Count 2.42 x10^6/uL (3.50-5.40) 1.89 x10^6/uL (3.50-5.40) Hemoglobin 7.9 g/dL (12.0-15.5) 6.2 g/dL (12.0-15.5) Hematocrit 23.6 % (36.0-47.0) 18.6 % (36.0-47.0) Mean Corpuscular Volume 97 fL (79-100) 98 fL (79-100) Mean Corpuscular Hemoglobin 33 pg (25-35) 33 pg (25-35) Mean Corpuscular Hemoglobin Concent 34 g/dL (31-37) 33 g/dL (31-37) Red Cell Distribution Width 16.3 % (11.5-14.5) 16.0 % (11.5-14.5) Platelet Count 201 x10^3/uL (140-400) 155 x10^3/uL (140-400) Neutrophils (%) (Auto) 67 % (31-73) 64 % (31-73) Lymphocytes (%) (Auto) 26 % (24-48) 29 % (24-48) Monocytes (%) (Auto) 5 % (0-9) 5 % (0-9) Eosinophils (%) (Auto) 1 % (0-3) 0 % (0-3) Basophils (%) (Auto) 1 % (0-3) 1 % (0-3) Neutrophils # (Auto) 4.2 x10^3uL (1.8-7.7) 3.3 x10^3uL (1.8-7.7) Lymphocytes # (Auto) 1.6 x10^3/uL (1.0-4.8) 1.5 x10^3/uL (1.0-4.8) Monocytes # (Auto) 0.3 x10^3/uL (0.0-1.1) 0.3 x10^3/uL (0.0-1.1) Eosinophils # (Auto) 0.1 x10^3/uL (0.0-0.7) 0.0 x10^3/uL (0.0-0.7) Basophils # (Auto) 0.1 x10^3/uL (0.0-0.2) 0.0 x10^3/uL (0.0-0.2) Prothrombin Time 13.0 SEC (11.7-14.0) Prothromb Time International Ratio 1.0 (0.8-1.1) Activated Partial Thromboplast Time 22 SEC (24-38) Sodium Level 138 mmol/L (136-145) 141 mmol/L (136-145) Potassium Level 4.0 mmol/L (3.5-5.1) 3.1 mmol/L (3.5-5.1) Chloride Level 105 mmol/L (98-107) 110 mmol/L (98-107) Carbon Dioxide Level 23 mmol/L (21-32) 22 mmol/L (21-32) Anion Gap 10 (6-14) 17 mmol/L (6-14) 9 (6-14) Blood Urea Nitrogen 23 mg/dL (7-20) 18 mg/dL (7-20) Creatinine 0.9 mg/dL (0.6-1.0) 0.7 mg/dL (0.6-1.0) Estimated GFR (Cockcroft-Gault) 59.5 79.5 BUN/Creatinine Ratio 26 (6-20) Glucose Level 101 mg/dL (70-99) 94 mg/dL (70-99) 92 mg/dL (70-99) Calcium Level 8.9 mg/dL (8.5-10.1) 8.0 mg/dL (8.5-10.1) Magnesium Level 2.4 mg/dL (1.8-2.4) Total Bilirubin 0.5 mg/dL (0.2-1.0) Aspartate Amino Transf (AST/SGOT) 21 U/L (15-37) Alanine Aminotransferase (ALT/SGPT) 23 U/L (14-59) Alkaline Phosphatase 78 U/L (46-116) Total Protein 6.1 g/dL (6.4-8.2) Albumin 3.3 g/dL (3.4-5.0) Albumin/Globulin Ratio 1.2 (1.0-1.7) Bedside Hemoglobin 7.1 g/dL (12-15) Bedside Hematocrit 21 % (36-40) Bedside Sodium 138 mmol/L (135-145) Bedside Potassium 3.9 mmol/L (3.5-5.0) Bedside Chloride 107 mmol/L (98-110) Bedside Total CO2 19 mmol/L (23-32) Bedside Blood Urea Nitrogen 22 mg/dL (8-26) Bedside Creatinine 0.8 mg/dL (0.5-1.4) Bedside Ionized Calcium (Stephane) 1.12 mmol/L (1.13-1.32) Urine Collection Type Unknown Urine Color Straw Urine Clarity Clear Urine pH 7.5 Urine Specific Dodson 1.010 Urine Protein Negative mg/dL (NEG-TRACE) Urine Glucose (UA) Negative mg/dL (NEG) Urine Ketones (Stick) Negative mg/dL (NEG) Urine Blood Negative (NEG) Urine Nitrite Negative (NEG) Urine Bilirubin Negative (NEG) Urine Urobilinogen Dipstick 0.2 mg/dL (0.2 mg/dL) Urine Leukocyte Esterase Trace (NEG) Urine RBC 0 /HPF (0-2) Urine WBC Occ /HPF (0-4) Urine Squamous Epithelial Cells Occ /LPF Urine Bacteria Few /HPF (0-FEW) Urine Mucus Slight /LPF Triglycerides Level 122 mg/dL (0-150) Cholesterol Level 113 mg/dL (0-200) LDL Cholesterol, Calculated 49 mg/dL (0-100) VLDL Cholesterol, Calculated 24 mg/dL (0-40) Non-HDL Cholesterol Calculated 73 mg/dL (0-129) HDL Cholesterol 40 mg/dL (40-60) Cholesterol/HDL Ratio 2.8 Review of Systems Review of Systems no n/v/d stool was darker, not alona melena, Assessment and Plan Assessmemt and Plan consult GI, f/u for blood loss may be done outpatient CV to determine aspirin or plavix to be started Problems Medical Problems: (1) Acute CVA (cerebrovascular accident) Status: Acute Problems: Comment Review of Relevant I have reviewed the following items lionel (where applicable) has been applied. Labs Laboratory Tests Test 03/15/17 12:24 03/15/17 12:41 03/15/17 14:15 03/16/17 05:00 White Blood Count 6.3 x10^3/uL (4.0-11.0) 5.1 x10^3/uL (4.0-11.0) Red Blood Count 2.42 x10^6/uL (3.50-5.40) 1.89 x10^6/uL (3.50-5.40) Hemoglobin 7.9 g/dL (12.0-15.5) 6.2 g/dL (12.0-15.5) Hematocrit 23.6 % (36.0-47.0) 18.6 % (36.0-47.0) Mean Corpuscular Volume 97 fL (79-100) 98 fL (79-100) Mean Corpuscular Hemoglobin 33 pg (25-35) 33 pg (25-35) Mean Corpuscular Hemoglobin Concent 34 g/dL (31-37) 33 g/dL (31-37) Red Cell Distribution Width 16.3 % (11.5-14.5) 16.0 % (11.5-14.5) Platelet Count 201 x10^3/uL (140-400) 155 x10^3/uL (140-400) Neutrophils (%) (Auto) 67 % (31-73) 64 % (31-73) Lymphocytes (%) (Auto) 26 % (24-48) 29 % (24-48) Monocytes (%) (Auto) 5 % (0-9) 5 % (0-9) Eosinophils (%) (Auto) 1 % (0-3) 0 % (0-3) Basophils (%) (Auto) 1 % (0-3) 1 % (0-3) Neutrophils # (Auto) 4.2 x10^3uL (1.8-7.7) 3.3 x10^3uL (1.8-7.7) Lymphocytes # (Auto) 1.6 x10^3/uL (1.0-4.8) 1.5 x10^3/uL (1.0-4.8) Monocytes # (Auto) 0.3 x10^3/uL (0.0-1.1) 0.3 x10^3/uL (0.0-1.1) Eosinophils # (Auto) 0.1 x10^3/uL (0.0-0.7) 0.0 x10^3/uL (0.0-0.7) Basophils # (Auto) 0.1 x10^3/uL (0.0-0.2) 0.0 x10^3/uL (0.0-0.2) Prothrombin Time 13.0 SEC (11.7-14.0) Prothromb Time International Ratio 1.0 (0.8-1.1) Activated Partial Thromboplast Time 22 SEC (24-38) Sodium Level 138 mmol/L (136-145) 141 mmol/L (136-145) Potassium Level 4.0 mmol/L (3.5-5.1) 3.1 mmol/L (3.5-5.1) Chloride Level 105 mmol/L (98-107) 110 mmol/L (98-107) Carbon Dioxide Level 23 mmol/L (21-32) 22 mmol/L (21-32) Anion Gap 10 (6-14) 17 mmol/L (6-14) 9 (6-14) Blood Urea Nitrogen 23 mg/dL (7-20) 18 mg/dL (7-20) Creatinine 0.9 mg/dL (0.6-1.0) 0.7 mg/dL (0.6-1.0) Estimated GFR (Cockcroft-Gault) 59.5 79.5 BUN/Creatinine Ratio 26 (6-20) Glucose Level 101 mg/dL (70-99) 94 mg/dL (70-99) 92 mg/dL (70-99) Calcium Level 8.9 mg/dL (8.5-10.1) 8.0 mg/dL (8.5-10.1) Magnesium Level 2.4 mg/dL (1.8-2.4) Total Bilirubin 0.5 mg/dL (0.2-1.0) Aspartate Amino Transf (AST/SGOT) 21 U/L (15-37) Alanine Aminotransferase (ALT/SGPT) 23 U/L (14-59) Alkaline Phosphatase 78 U/L (46-116) Total Protein 6.1 g/dL (6.4-8.2) Albumin 3.3 g/dL (3.4-5.0) Albumin/Globulin Ratio 1.2 (1.0-1.7) Bedside Hemoglobin 7.1 g/dL (12-15) Bedside Hematocrit 21 % (36-40) Bedside Sodium 138 mmol/L (135-145) Bedside Potassium 3.9 mmol/L (3.5-5.0) Bedside Chloride 107 mmol/L (98-110) Bedside Total CO2 19 mmol/L (23-32) Bedside Blood Urea Nitrogen 22 mg/dL (8-26) Bedside Creatinine 0.8 mg/dL (0.5-1.4) Bedside Ionized Calcium (Stephane) 1.12 mmol/L (1.13-1.32) Urine Collection Type Unknown Urine Color Straw Urine Clarity Clear Urine pH 7.5 Urine Specific Dodson 1.010 Urine Protein Negative mg/dL (NEG-TRACE) Urine Glucose (UA) Negative mg/dL (NEG) Urine Ketones (Stick) Negative mg/dL (NEG) Urine Blood Negative (NEG) Urine Nitrite Negative (NEG) Urine Bilirubin Negative (NEG) Urine Urobilinogen Dipstick 0.2 mg/dL (0.2 mg/dL) Urine Leukocyte Esterase Trace (NEG) Urine RBC 0 /HPF (0-2) Urine WBC Occ /HPF (0-4) Urine Squamous Epithelial Cells Occ /LPF Urine Bacteria Few /HPF (0-FEW) Urine Mucus Slight /LPF Triglycerides Level 122 mg/dL (0-150) Cholesterol Level 113 mg/dL (0-200) LDL Cholesterol, Calculated 49 mg/dL (0-100) VLDL Cholesterol, Calculated 24 mg/dL (0-40) Non-HDL Cholesterol Calculated 73 mg/dL (0-129) HDL Cholesterol 40 mg/dL (40-60) Cholesterol/HDL Ratio 2.8 Laboratory Tests Test 03/15/17 12:24 03/15/17 12:41 03/15/17 14:15 03/16/17 05:00 White Blood Count 6.3 x10^3/uL (4.0-11.0) 5.1 x10^3/uL (4.0-11.0) Red Blood Count 2.42 x10^6/uL (3.50-5.40) 1.89 x10^6/uL (3.50-5.40) Hemoglobin 7.9 g/dL (12.0-15.5) 6.2 g/dL (12.0-15.5) Hematocrit 23.6 % (36.0-47.0) 18.6 % (36.0-47.0) Mean Corpuscular Volume 97 fL (79-100) 98 fL (79-100) Mean Corpuscular Hemoglobin 33 pg (25-35) 33 pg (25-35) Mean Corpuscular Hemoglobin Concent 34 g/dL (31-37) 33 g/dL (31-37) Red Cell Distribution Width 16.3 % (11.5-14.5) 16.0 % (11.5-14.5) Platelet Count 201 x10^3/uL (140-400) 155 x10^3/uL (140-400) Neutrophils (%) (Auto) 67 % (31-73) 64 % (31-73) Lymphocytes (%) (Auto) 26 % (24-48) 29 % (24-48) Monocytes (%) (Auto) 5 % (0-9) 5 % (0-9) Eosinophils (%) (Auto) 1 % (0-3) 0 % (0-3) Basophils (%) (Auto) 1 % (0-3) 1 % (0-3) Neutrophils # (Auto) 4.2 x10^3uL (1.8-7.7) 3.3 x10^3uL (1.8-7.7) Lymphocytes # (Auto) 1.6 x10^3/uL (1.0-4.8) 1.5 x10^3/uL (1.0-4.8) Monocytes # (Auto) 0.3 x10^3/uL (0.0-1.1) 0.3 x10^3/uL (0.0-1.1) Eosinophils # (Auto) 0.1 x10^3/uL (0.0-0.7) 0.0 x10^3/uL (0.0-0.7) Basophils # (Auto) 0.1 x10^3/uL (0.0-0.2) 0.0 x10^3/uL (0.0-0.2) Prothrombin Time 13.0 SEC (11.7-14.0) Prothromb Time International Ratio 1.0 (0.8-1.1) Activated Partial Thromboplast Time 22 SEC (24-38) Sodium Level 138 mmol/L (136-145) 141 mmol/L (136-145) Potassium Level 4.0 mmol/L (3.5-5.1) 3.1 mmol/L (3.5-5.1) Chloride Level 105 mmol/L (98-107) 110 mmol/L (98-107) Carbon Dioxide Level 23 mmol/L (21-32) 22 mmol/L (21-32) Anion Gap 10 (6-14) 17 mmol/L (6-14) 9 (6-14) Blood Urea Nitrogen 23 mg/dL (7-20) 18 mg/dL (7-20) Creatinine 0.9 mg/dL (0.6-1.0) 0.7 mg/dL (0.6-1.0) Estimated GFR (Cockcroft-Gault) 59.5 79.5 BUN/Creatinine Ratio 26 (6-20) Glucose Level 101 mg/dL (70-99) 94 mg/dL (70-99) 92 mg/dL (70-99) Calcium Level 8.9 mg/dL (8.5-10.1) 8.0 mg/dL (8.5-10.1) Magnesium Level 2.4 mg/dL (1.8-2.4) Total Bilirubin 0.5 mg/dL (0.2-1.0) Aspartate Amino Transf (AST/SGOT) 21 U/L (15-37) Alanine Aminotransferase (ALT/SGPT) 23 U/L (14-59) Alkaline Phosphatase 78 U/L (46-116) Total Protein 6.1 g/dL (6.4-8.2) Albumin 3.3 g/dL (3.4-5.0) Albumin/Globulin Ratio 1.2 (1.0-1.7) Bedside Hemoglobin 7.1 g/dL (12-15) Bedside Hematocrit 21 % (36-40) Bedside Sodium 138 mmol/L (135-145) Bedside Potassium 3.9 mmol/L (3.5-5.0) Bedside Chloride 107 mmol/L (98-110) Bedside Total CO2 19 mmol/L (23-32) Bedside Blood Urea Nitrogen 22 mg/dL (8-26) Bedside Creatinine 0.8 mg/dL (0.5-1.4) Bedside Ionized Calcium (Stehpane) 1.12 mmol/L (1.13-1.32) Urine Collection Type Unknown Urine Color Straw Urine Clarity Clear Urine pH 7.5 Urine Specific Dodson 1.010 Urine Protein Negative mg/dL (NEG-TRACE) Urine Glucose (UA) Negative mg/dL (NEG) Urine Ketones (Stick) Negative mg/dL (NEG) Urine Blood Negative (NEG) Urine Nitrite Negative (NEG) Urine Bilirubin Negative (NEG) Urine Urobilinogen Dipstick 0.2 mg/dL (0.2 mg/dL) Urine Leukocyte Esterase Trace (NEG) Urine RBC 0 /HPF (0-2) Urine WBC Occ /HPF (0-4) Urine Squamous Epithelial Cells Occ /LPF Urine Bacteria Few /HPF (0-FEW) Urine Mucus Slight /LPF Triglycerides Level 122 mg/dL (0-150) Cholesterol Level 113 mg/dL (0-200) LDL Cholesterol, Calculated 49 mg/dL (0-100) VLDL Cholesterol, Calculated 24 mg/dL (0-40) Non-HDL Cholesterol Calculated 73 mg/dL (0-129) HDL Cholesterol 40 mg/dL (40-60) Cholesterol/HDL Ratio 2.8 Medications Current Medications Sodium Chloride 1,000 ml @ 125 mls/hr 1X ONCE IV Last administered on t 12:51; Start 03/15/17 at 12:15; Stop 03/15/17 at 20:14; Status DC Alteplase, Recombinant 0 ml @ 0 mls/hr 1X ONCE IV Last administered on 13:08; Start 03/15/17 at 12:45; Stop 03/15/17 at 12:51; Status DC Alteplase, Recombinant 0 ml @ 0 mls/hr Q1H IV Last administered on 03/15/17 13: 14; Start 03/15/17 at 12:45; Stop 03/15/17 at 12:52; Status DC Sodium Chloride 50 ml @ 0 mls/hr 1X ONCE IV Last administered on 03/15/17 14: 11; Start 03/15/17 at 12:45; Stop 03/15/17 at 12:52; Status DC Methylprednisolone Sodium Succinate (Solu-Medrol 125mg Vial) 125 mg 1X ONCE IV ; Start 03/15/17 at 12:45; Stop 03/15/17 at 12:48; Status DC Famotidine (Pepcid) 20 mg 1X ONCE IVP Last administered on 03/15/17 12:50; Start 03/15/17 at 12:45; Stop 03/15/17 at 12:52; Status DC Diphenhydramine HCl (Benadryl) 25 mg 1X ONCE IVP Last administered on 12:50; Start 03/15/17 at 12:45; Stop 03/15/17 at 12:52; Status DC Hydrocortisone Sodium Succinate (Solu-Cortef) 125 mg 1X ONCE IV Last administered on 03/15/17 12:49; Start 03/15/17 at 13:00; Stop 03/15/17 at 13:01; Status DC Methylprednisolone Sodium Succinate (Solu-Medrol 125mg Vial) 125 mg STK-MED ONCE .ROUTE ; Start 03/15/17 at 12:46; Stop 03/15/17 at 12:48; Status DC Iohexol (Omnipaque 350 Mg/ml) 75 ml 1X ONCE IV ; Start 03/15/17 at 13:15; Stop 03/15/17 at 13:16; Status DC Info (Do NOT chart on this entry -- for MONITORING) 1 each PRN DAILY PRN MC SEE COMMENTS; Start 03/15/17 at 13:15; Stop 03/17/17 at 13:14 Iohexol (Omnipaque 300 Mg/ml) 60 ml 1X ONCE IV Last administered on 03/15/17 14:43; Start 03/15/17 at 14:45; Stop 03/15/17 at 14:46; Status DC Ondansetron HCl (Zofran) 4 mg PRN Q8HRS PRN IV NAUSEA/VOMITING; Start 03/15/17 at 15:00; Stop 03/16/17 at 14:59 Sodium Chloride 1,000 ml @ 125 mls/hr Q8H IV ; Start 03/15/17 at 15:15; Stop 03/15/17 at 16:39; Status DC Sodium Chloride 1,000 ml @ 70 mls/hr [id number] IV Last administered on 03/15/17 20:56; Start 03/15/17 at 17:00 Labetalol HCl (Normodyne) 10 mg PRN Q10MIN PRN IV HYPERTENSION, SEE COMMENTS; Start 03/15/17 at 16:30 Nicardipine HCl 50 mg/Sodium Chloride 270 ml @ 27 mls/hr CONT PRN IV HYPERTENSION, SEE COMMENTS; Start 03/15/17 at 16:30 Acetaminophen (Tylenol) 650 mg PRN Q6HRS PRN PO MILD PAIN / TEMP; Start at 16:30 Acetaminophen (Tylenol) 325 mg PRN Q6HRS PRN VT MILD PAIN / TEMP; Start at 16:30 Ondansetron HCl (Zofran) 4 mg PRN Q6HRS PRN IV NAUSEA/VOMITING; Start 03/15/17 at 16:30 Atorvastatin Calcium (Lipitor) 20 mg HS PO Last administered on 03/15/17 20:56 ; Start 03/15/17 at 21:00 Magnesium Hydroxide (Milk Of Magnesia) 2,400 mg QHS PO Last administered on 03/15 20:56; Start 03/15/17 at 21:00 Amiodarone HCl (Cordarone) 100 mg DAILY PO ; Start 03/16/17 at 11:00 Levothyroxine Sodium (Synthroid) 75 mcg DAILYAC PO ; Start 03/17/17 at 07:30; Stop 03/17/17 at 07:30; Status DC Pantoprazole Sodium (Protonix) 40 mg DAILYAC PO ; Start 03/16/17 at 11:30 Potassium Chloride (Klor-Con) 40 meq 1X ONCE PO ; Start 03/16/17 at 10:30; Stop 03/16/17 at 10:31; Status DC Levothyroxine Sodium (Synthroid) 75 mcg DAILYAC PO ; Start 03/16/17 at 10:30 Active Scripts Active Reported Levothyroxine Sodium 75 Mcg Tablet 75 Mcg PO DAILYAC Milk Of Magnesia (Magnesium Hydroxide) 2,400 Mg/10 Ml Oral.susp 2,400 Mg PO QHS Atorvastatin Calcium 20 Mg Tablet 1 Mg PO HS Isosorbide Mononitrate Er (Isosorbide Mononitrate) 60 Mg Tab.er.24h 1 Mg PO HS Amiodarone Hcl 200 Mg Tablet 0.5 Tab PO DAILY Pantoprazole Sodium 40 Mg Tablet.dr 1 Tab PO DAILY LAST DOSE GIVEN: DATE: 2014 TIME: 9:00 AM NEXT DOSE DUE: DATE: 2014 TIME: 9:00 AM Aspir 81 (Aspirin) 81 Mg Tablet.dr 1 Tab PO DAILY LAST DOSE GIVEN: DATE: 2014 TIME: 9:00 AM NEXT DOSE DUE: DATE: 2014 TIME: 9:00 AM Clopidogrel (Clopidogrel Bisulfate) 75 Mg Tablet 1 Tab PO QHS LAST DOSE GIVEN: DATE: 2014 TIME: 9:00 PM NEXT DOSE DUE: DATE: 2014 TIME: 9:00 PM Vitals/I & O Vital Sign - Last 24 Hours 03/15/17 03/15/17 03/15/17 03/15/17 12:08 12:33 12:48 13:03 Temp 97.3 97.3 Pulse 69 68 62 60 Resp 18 18 20 18 B/P (MAP) 183/74 (110) 183/74 (110) 174/76 (108) 170/63 (98) Pulse Ox 100 99 100 95 O2 Delivery Room Air Room Air Room Air Room Air 03/15/17 03/15/17 03/15/17 03/15/17 13:18 13:25 13:33 13:43 Pulse 60 60 60 68 Resp 16 18 18 20 B/P (MAP) 170/70 (103) 160/63 (95) 178/76 (110) 152/68 (96) Pulse Ox 95 94 95 93 O2 Delivery Room Air Room Air 03/15/17 03/15/17 03/15/17 03/15/17 13:57 14:03 14:18 14:33 Pulse 60 60 60 64 Resp 18 16 18 18 B/P (MAP) 151/60 (90) 142/65 (90) 138/65 (89) 159/67 (97) Pulse Ox 95 96 100 100 O2 Delivery Nasal Cannula Nasal Cannula O2 Flow Rate 2.0 2.0 03/15/17 03/15/17 03/15/17 03/15/17 14:48 15:03 15:18 15:33 Pulse 60 60 60 60 Resp 16 16 16 18 B/P (MAP) 137/65 (89) 158/65 (96) 124/58 (80) 132/59 (83) Pulse Ox 100 100 100 100 O2 Delivery Nasal Cannula O2 Flow Rate 2.0 03/15/17 03/15/17 03/15/17 03/15/17 15:48 16:03 16:33 17:03 Pulse 60 60 60 60 Resp 18 18 16 16 B/P (MAP) 126/60 (82) 142/60 (87) 120/59 (79) 123/57 (79) Pulse Ox 99 98 99 97 O2 Delivery Nasal Cannula Room Air Room Air O2 Flow Rate 2.0 03/15/17 03/15/17 03/15/17 03/15/17 17:30 17:45 18:00 18:15 Temp 98.2 98.2 Pulse 60 60 60 62 Resp 18 19 19 17 B/P (MAP) 108/76 (87) 135/63 (87) 141/67 (91) 172/66 (101) Pulse Ox 99 99 100 100 O2 Delivery Room Air Room Air Room Air Room Air 03/15/17 03/15/17 03/15/17 03/15/17 19:00 20:00 20:00 21:00 Temp 98.0 98.0 Pulse 60 60 60 Resp 16 18 18 B/P (MAP) 135/68 (90) 110/61 (77) 120/61 (80) Pulse Ox 99 99 98 O2 Delivery Room Air Room Air Room Air O2 Flow Rate 2.0 03/15/17 03/15/17 03/15/17 03/16/17 21:56 22:00 23:00 00:00 Temp 97.9 97.9 Pulse 60 60 Resp 18 16 B/P (MAP) 111/58 (75) 110/53 (72) Pulse Ox 96 98 O2 Delivery Room Air Room Air Room Air O2 Flow Rate 2.0 03/16/17 03/16/17 03/16/17 03/16/17 00:00 01:00 02:00 03:00 Temp 97.7 97.7 Pulse 60 60 60 60 Resp 15 20 17 14 B/P (MAP) 124/63 (83) 94/50 (65) 99/48 (65) 97/46 (63) Pulse Ox 97 100 97 99 O2 Delivery Room Air Room Air Room Air Room Air 03/16/17 03/16/17 03/16/17 03/16/17 04:00 04:00 05:00 06:00 Pulse 60 60 60 Resp 16 16 15 B/P (MAP) 102/49 (66) 112/55 (74) 117/57 (77) Pulse Ox 98 98 99 O2 Delivery Room Air Room Air Room Air Room Air 03/16/17 03/16/17 08:00 09:00 Pulse 64 Resp 23 B/P (MAP) 153/78 (103) Pulse Ox 100 O2 Delivery Room Air Room Air Intake and Output 03/15/17 03/15/17 03/16/17 15:00 23:00 07:00 Intake Total 50.6 ml 605 ml 790 ml Output Total 850 ml 500 ml Balance 50.6 ml -245 ml 290 ml CLAUDINE NICHOLSON MD March 16, 2017 11:13
--- NOTE | 2017-03-16 11:29 | EKG ---
[facility] [address] [place] [address] Test Date: 2017-03-15 Test Time: 12:29:05 Pat Name: ANDREINA BENNETT Department: Room: 107 1 Gender: F Sequins Stringer: DARELL : 1930 Requested By: DESTINI BHANDARI Order Number: [id number] Reading MD: Ita Arguello Measurements Intervals Cordell Rate: 60 P: FL: QRS: -26 QRSD: 84 T: 55 QT: 380 QTc: 380 Interpretive Statements IRREGULAR RHYTHM, NO P-WAVE FOUND LEFTWARD AXIS OTHERWISE NORMAL ECG Electronically Signed On 03-16-2017 18:15:03 CDT by Ita Arguello
--- NOTE | 2017-03-16 11:32 | PDOC2 ---
CONSULT Date of Consult Date of Consult DATE: 03/16/17 TIME: 11:29 Reason for Consult Reason for Consult: Acute blood loss anemia S/p TPA/melena preceding treatment Past Medical History Cardiovascular: CAD, HTN Pulmonary: No pertinent hx CENTRAL NERVOUS SYSTEM: CVA, TIA, Other (conversion reaction) GI: Other Hepatobiliary: Other (elevated transaminases last year, resolving) Musculoskeletal: low back pain, Osteoarthritis ENT: Other (glaucoma) Endocrine: Hypothyroidism Past Surgical History Past Surgical History: Pacemaker (and defibrillator), Appendectomy, CABG, Total knee replacement (right), Tonsillectomy, Hysterectomy, Other (removal of temporal lobe tumor, coronary stent, lobectomy, colonic polyps, sacroplasty) Family History Family History: No Significant, Hypertension Social History No ALCOHOL: none Current Problem List Problem List Problems Medical Problems: (1) Acute CVA (cerebrovascular accident) Status: Acute Current Medications Current Medications Current Medications Sodium Chloride 1,000 ml @ 125 mls/hr 1X ONCE IV Last administered on 12:51; Start 03/15/17 at 12:15; Stop 03/15/17 at 20:14; Status DC Alteplase, Recombinant 0 ml @ 0 mls/hr 1X ONCE IV Last administered on 13:08; Start 03/15/17 at 12:45; Stop 03/15/17 at 12:51; Status DC Alteplase, Recombinant 0 ml @ 0 mls/hr Q1H IV Last administered on 03/15/17 13: 14; Start 03/15/17 at 12:45; Stop 03/15/17 at 12:52; Status DC Sodium Chloride 50 ml @ 0 mls/hr 1X ONCE IV Last administered on 03/15/17 14: 11; Start 03/15/17 at 12:45; Stop 03/15/17 at 12:52; Status DC Methylprednisolone Sodium Succinate (Solu-Medrol 125mg Vial) 125 mg 1X ONCE IV ; Start 03/15/17 at 12:45; Stop 03/15/17 at 12:48; Status DC Famotidine (Pepcid) 20 mg 1X ONCE IVP Last administered on 03/15/17 12:50; Start 03/15/17 at 12:45; Stop 03/15/17 at 12:52; Status DC Diphenhydramine HCl (Benadryl) 25 mg 1X ONCE IVP Last administered on 12:50; Start 03/15/17 at 12:45; Stop 03/15/17 at 12:52; Status DC Hydrocortisone Sodium Succinate (Solu-Cortef) 125 mg 1X ONCE IV Last administered on 03/15/17 12:49; Start 03/15/17 at 13:00; Stop 03/15/17 at 13:01; Status DC Methylprednisolone Sodium Succinate (Solu-Medrol 125mg Vial) 125 mg STK-MED ONCE .ROUTE ; Start 03/15/17 at 12:46; Stop 03/15/17 at 12:48; Status DC Iohexol (Omnipaque 350 Mg/ml) 75 ml 1X ONCE IV ; Start 03/15/17 at 13:15; Stop 03/15/17 at 13:16; Status DC Info (Do NOT chart on this entry -- for MONITORING) 1 each PRN DAILY PRN MC SEE COMMENTS; Start 03/15/17 at 13:15; Stop 03/17/17 at 13:14 Iohexol (Omnipaque 300 Mg/ml) 60 ml 1X ONCE IV Last administered on 03/15/17 14:43; Start 03/15/17 at 14:45; Stop 03/15/17 at 14:46; Status DC Ondansetron HCl (Zofran) 4 mg PRN Q8HRS PRN IV NAUSEA/VOMITING; Start 03/15/17 at 15:00; Stop 03/16/17 at 14:59 Sodium Chloride 1,000 ml @ 125 mls/hr Q8H IV ; Start 03/15/17 at 15:15; Stop 03/15/17 at 16:39; Status DC Sodium Chloride 1,000 ml @ 70 mls/hr [id number] IV Last administered on 03/15/17 20:56; Start 03/15/17 at 17:00 Labetalol HCl (Normodyne) 10 mg PRN Q10MIN PRN IV HYPERTENSION, SEE COMMENTS; Start 03/15/17 at 16:30 Nicardipine HCl 50 mg/Sodium Chloride 270 ml @ 27 mls/hr CONT PRN IV HYPERTENSION, SEE COMMENTS; Start 03/15/17 at 16:30 Acetaminophen (Tylenol) 650 mg PRN Q6HRS PRN PO MILD PAIN / TEMP; Start at 16:30 Acetaminophen (Tylenol) 325 mg PRN Q6HRS PRN AR MILD PAIN / TEMP; Start at 16:30 Ondansetron HCl (Zofran) 4 mg PRN Q6HRS PRN IV NAUSEA/VOMITING; Start 03/15/17 at 16:30 Atorvastatin Calcium (Lipitor) 20 mg HS PO Last administered on 03/15/17 20:56 ; Start 03/15/17 at 21:00 Magnesium Hydroxide (Milk Of Magnesia) 2,400 mg QHS PO Last administered on 03/15 20:56; Start 03/15/17 at 21:00 Amiodarone HCl (Cordarone) 100 mg DAILY PO ; Start 03/16/17 at 11:00 Levothyroxine Sodium (Synthroid) 75 mcg DAILYAC PO ; Start 03/17/17 at 07:30; Stop 03/17/17 at 07:30; Status DC Pantoprazole Sodium (Protonix) 40 mg DAILYAC PO ; Start 03/16/17 at 11:30 Potassium Chloride (Klor-Con) 40 meq 1X ONCE PO ; Start 03/16/17 at 10:30; Stop 03/16/17 at 10:31; Status DC Levothyroxine Sodium (Synthroid) 75 mcg DAILYAC PO ; Start 03/16/17 at 10:30 Active Scripts Active Reported Levothyroxine Sodium 75 Mcg Tablet 75 Mcg PO DAILYAC Milk Of Magnesia (Magnesium Hydroxide) 2,400 Mg/10 Ml Oral.susp 2,400 Mg PO QHS Atorvastatin Calcium 20 Mg Tablet 1 Mg PO HS Isosorbide Mononitrate Er (Isosorbide Mononitrate) 60 Mg Tab.er.24h 1 Mg PO HS Amiodarone Hcl 200 Mg Tablet 0.5 Tab PO DAILY Pantoprazole Sodium 40 Mg Tablet. 1 Tab PO DAILY LAST DOSE GIVEN: DATE: 2014 TIME: 9:00 AM NEXT DOSE DUE: DATE: 2014 TIME: 9:00 AM Aspir 81 (Aspirin) 81 Mg Tablet.dr 1 Tab PO DAILY LAST DOSE GIVEN: DATE: 2014 TIME: 9:00 AM NEXT DOSE DUE: DATE: 2014 TIME: 9:00 AM Clopidogrel (Clopidogrel Bisulfate) 75 Mg Tablet 1 Tab PO QHS LAST DOSE GIVEN: DATE: 2014 TIME: 9:00 PM NEXT DOSE DUE: DATE: 2014 TIME: 9:00 PM Allergies Allergies: Coded Allergies: iodine (Verified Allergy, Intermediate, 07/13/15) codeine (Verified Adverse Reaction, Intermediate, N/V, 07/13/15) meperidine (Verified Adverse Reaction, Intermediate, N/V, 07/13/15) morphine (Verified Adverse Reaction, Intermediate, N/V, 07/13/15) Vitals VITALS Vital Signs Date Time Temp Pulse Resp B/P (MAP) Pulse Ox O2 Delivery O2 Flow Rate FiO2 03/16/17 09:00 64 23 153/78 (103) 100 Room Air 03/16/17 03:00 97.7 97.7 03/16/17 00:00 2.0 Labs Labs Laboratory Tests Test 03/15/17 12:24 03/15/17 12:41 03/15/17 14:15 03/16/17 05:00 White Blood Count 6.3 x10^3/uL (4.0-11.0) 5.1 x10^3/uL (4.0-11.0) Red Blood Count 2.42 x10^6/uL (3.50-5.40) 1.89 x10^6/uL (3.50-5.40) Hemoglobin 7.9 g/dL (12.0-15.5) 6.2 g/dL (12.0-15.5) Hematocrit 23.6 % (36.0-47.0) 18.6 % (36.0-47.0) Mean Corpuscular Volume 97 fL (79-100) 98 fL (79-100) Mean Corpuscular Hemoglobin 33 pg (25-35) 33 pg (25-35) Mean Corpuscular Hemoglobin Concent 34 g/dL (31-37) 33 g/dL (31-37) Red Cell Distribution Width 16.3 % (11.5-14.5) 16.0 % (11.5-14.5) Platelet Count 201 x10^3/uL (140-400) 155 x10^3/uL (140-400) Neutrophils (%) (Auto) 67 % (31-73) 64 % (31-73) Lymphocytes (%) (Auto) 26 % (24-48) 29 % (24-48) Monocytes (%) (Auto) 5 % (0-9) 5 % (0-9) Eosinophils (%) (Auto) 1 % (0-3) 0 % (0-3) Basophils (%) (Auto) 1 % (0-3) 1 % (0-3) Neutrophils # (Auto) 4.2 x10^3uL (1.8-7.7) 3.3 x10^3uL (1.8-7.7) Lymphocytes # (Auto) 1.6 x10^3/uL (1.0-4.8) 1.5 x10^3/uL (1.0-4.8) Monocytes # (Auto) 0.3 x10^3/uL (0.0-1.1) 0.3 x10^3/uL (0.0-1.1) Eosinophils # (Auto) 0.1 x10^3/uL (0.0-0.7) 0.0 x10^3/uL (0.0-0.7) Basophils # (Auto) 0.1 x10^3/uL (0.0-0.2) 0.0 x10^3/uL (0.0-0.2) Prothrombin Time 13.0 SEC (11.7-14.0) Prothromb Time International Ratio 1.0 (0.8-1.1) Activated Partial Thromboplast Time 22 SEC (24-38) Sodium Level 138 mmol/L (136-145) 141 mmol/L (136-145) Potassium Level 4.0 mmol/L (3.5-5.1) 3.1 mmol/L (3.5-5.1) Chloride Level 105 mmol/L (98-107) 110 mmol/L (98-107) Carbon Dioxide Level 23 mmol/L (21-32) 22 mmol/L (21-32) Anion Gap 10 (6-14) 17 mmol/L (6-14) 9 (6-14) Blood Urea Nitrogen 23 mg/dL (7-20) 18 mg/dL (7-20) Creatinine 0.9 mg/dL (0.6-1.0) 0.7 mg/dL (0.6-1.0) Estimated GFR (Cockcroft-Gault) 59.5 79.5 BUN/Creatinine Ratio 26 (6-20) Glucose Level 101 mg/dL (70-99) 94 mg/dL (70-99) 92 mg/dL (70-99) Calcium Level 8.9 mg/dL (8.5-10.1) 8.0 mg/dL (8.5-10.1) Magnesium Level 2.4 mg/dL (1.8-2.4) Total Bilirubin 0.5 mg/dL (0.2-1.0) Aspartate Amino Transf (AST/SGOT) 21 U/L (15-37) Alanine Aminotransferase (ALT/SGPT) 23 U/L (14-59) Alkaline Phosphatase 78 U/L (46-116) Total Protein 6.1 g/dL (6.4-8.2) Albumin 3.3 g/dL (3.4-5.0) Albumin/Globulin Ratio 1.2 (1.0-1.7) Bedside Hemoglobin 7.1 g/dL (12-15) Bedside Hematocrit 21 % (36-40) Bedside Sodium 138 mmol/L (135-145) Bedside Potassium 3.9 mmol/L (3.5-5.0) Bedside Chloride 107 mmol/L (98-110) Bedside Total CO2 19 mmol/L (23-32) Bedside Blood Urea Nitrogen 22 mg/dL (8-26) Bedside Creatinine 0.8 mg/dL (0.5-1.4) Bedside Ionized Calcium (Stephane) 1.12 mmol/L (1.13-1.32) Urine Collection Type Unknown Urine Color Straw Urine Clarity Clear Urine pH 7.5 Urine Specific [place] 1.010 Urine Protein Negative mg/dL (NEG-TRACE) Urine Glucose (UA) Negative mg/dL (NEG) Urine Ketones (Stick) Negative mg/dL (NEG) Urine Blood Negative (NEG) Urine Nitrite Negative (NEG) Urine Bilirubin Negative (NEG) Urine Urobilinogen Dipstick 0.2 mg/dL (0.2 mg/dL) Urine Leukocyte Esterase Trace (NEG) Urine RBC 0 /HPF (0-2) Urine WBC Occ /HPF (0-4) Urine Squamous Epithelial Cells Occ /LPF Urine Bacteria Few /HPF (0-FEW) Urine Mucus Slight /LPF Triglycerides Level 122 mg/dL (0-150) Cholesterol Level 113 mg/dL (0-200) LDL Cholesterol, Calculated 49 mg/dL (0-100) VLDL Cholesterol, Calculated 24 mg/dL (0-40) Non-HDL Cholesterol Calculated 73 mg/dL (0-129) HDL Cholesterol 40 mg/dL (40-60) Cholesterol/HDL Ratio 2.8 Laboratory Tests Test 03/15/17 12:24 03/15/17 12:41 03/15/17 14:15 03/16/17 05:00 White Blood Count 6.3 x10^3/uL (4.0-11.0) 5.1 x10^3/uL (4.0-11.0) Red Blood Count 2.42 x10^6/uL (3.50-5.40) 1.89 x10^6/uL (3.50-5.40) Hemoglobin 7.9 g/dL (12.0-15.5) 6.2 g/dL (12.0-15.5) Hematocrit 23.6 % (36.0-47.0) 18.6 % (36.0-47.0) Mean Corpuscular Volume 97 fL (79-100) 98 fL (79-100) Mean Corpuscular Hemoglobin 33 pg (25-35) 33 pg (25-35) Mean Corpuscular Hemoglobin Concent 34 g/dL (31-37) 33 g/dL (31-37) Red Cell Distribution Width 16.3 % (11.5-14.5) 16.0 % (11.5-14.5) Platelet Count 201 x10^3/uL (140-400) 155 x10^3/uL (140-400) Neutrophils (%) (Auto) 67 % (31-73) 64 % (31-73) Lymphocytes (%) (Auto) 26 % (24-48) 29 % (24-48) Monocytes (%) (Auto) 5 % (0-9) 5 % (0-9) Eosinophils (%) (Auto) 1 % (0-3) 0 % (0-3) Basophils (%) (Auto) 1 % (0-3) 1 % (0-3) Neutrophils # (Auto) 4.2 x10^3uL (1.8-7.7) 3.3 x10^3uL (1.8-7.7) Lymphocytes # (Auto) 1.6 x10^3/uL (1.0-4.8) 1.5 x10^3/uL (1.0-4.8) Monocytes # (Auto) 0.3 x10^3/uL (0.0-1.1) 0.3 x10^3/uL (0.0-1.1) Eosinophils # (Auto) 0.1 x10^3/uL (0.0-0.7) 0.0 x10^3/uL (0.0-0.7) Basophils # (Auto) 0.1 x10^3/uL (0.0-0.2) 0.0 x10^3/uL (0.0-0.2) Prothrombin Time 13.0 SEC (11.7-14.0) Prothromb Time International Ratio 1.0 (0.8-1.1) Activated Partial Thromboplast Time 22 SEC (24-38) Sodium Level 138 mmol/L (136-145) 141 mmol/L (136-145) Potassium Level 4.0 mmol/L (3.5-5.1) 3.1 mmol/L (3.5-5.1) Chloride Level 105 mmol/L (98-107) 110 mmol/L (98-107) Carbon Dioxide Level 23 mmol/L (21-32) 22 mmol/L (21-32) Anion Gap 10 (6-14) 17 mmol/L (6-14) 9 (6-14) Blood Urea Nitrogen 23 mg/dL (7-20) 18 mg/dL (7-20) Creatinine 0.9 mg/dL (0.6-1.0) 0.7 mg/dL (0.6-1.0) Estimated GFR (Cockcroft-Gault) 59.5 79.5 BUN/Creatinine Ratio 26 (6-20) Glucose Level 101 mg/dL (70-99) 94 mg/dL (70-99) 92 mg/dL (70-99) Calcium Level 8.9 mg/dL (8.5-10.1) 8.0 mg/dL (8.5-10.1) Magnesium Level 2.4 mg/dL (1.8-2.4) Total Bilirubin 0.5 mg/dL (0.2-1.0) Aspartate Amino Transf (AST/SGOT) 21 U/L (15-37) Alanine Aminotransferase (ALT/SGPT) 23 U/L (14-59) Alkaline Phosphatase 78 U/L (46-116) Total Protein 6.1 g/dL (6.4-8.2) Albumin 3.3 g/dL (3.4-5.0) Albumin/Globulin Ratio 1.2 (1.0-1.7) Bedside Hemoglobin 7.1 g/dL (12-15) Bedside Hematocrit 21 % (36-40) Bedside Sodium 138 mmol/L (135-145) Bedside Potassium 3.9 mmol/L (3.5-5.0) Bedside Chloride 107 mmol/L (98-110) Bedside Total CO2 19 mmol/L (23-32) Bedside Blood Urea Nitrogen 22 mg/dL (8-26) Bedside Creatinine 0.8 mg/dL (0.5-1.4) Bedside Ionized Calcium (Stephane) 1.12 mmol/L (1.13-1.32) Urine Collection Type Unknown Urine Color Straw Urine Clarity Clear Urine pH 7.5 Urine Specific [place] 1.010 Urine Protein Negative mg/dL (NEG-TRACE) Urine Glucose (UA) Negative mg/dL (NEG) Urine Ketones (Stick) Negative mg/dL (NEG) Urine Blood Negative (NEG) Urine Nitrite Negative (NEG) Urine Bilirubin Negative (NEG) Urine Urobilinogen Dipstick 0.2 mg/dL (0.2 mg/dL) Urine Leukocyte Esterase Trace (NEG) Urine RBC 0 /HPF (0-2) Urine WBC Occ /HPF (0-4) Urine Squamous Epithelial Cells Occ /LPF Urine Bacteria Few /HPF (0-FEW) Urine Mucus Slight /LPF Triglycerides Level 122 mg/dL (0-150) Cholesterol Level 113 mg/dL (0-200) LDL Cholesterol, Calculated 49 mg/dL (0-100) VLDL Cholesterol, Calculated 24 mg/dL (0-40) Non-HDL Cholesterol Calculated 73 mg/dL (0-129) HDL Cholesterol 40 mg/dL (40-60) Cholesterol/HDL Ratio 2.8 Assessment/Plan Assessment/Plan Acute blood loss anemia- with melena and hx of colon polyps, with recent TPA Plan PPI therapy serial CBCs/transfusional support to maintain Hg > 8 heme work-up possible endoscopy pending clinical course.transfusional requirements. Full note dictated DANIELA WYNNE MD March 16, 2017 11:31
[2017-03-16] MEDS: PANTOPRAZOLE 40 MG TABLET.DR. PO SCH (11:45)
[2017-03-16] MEDS: LEVOTHYROXINE 75 MCG TABLET PO SCH (11:45)
[2017-03-16 12:11] LABS: % SAT IRON 8 % (15-34); IRON,SERUM 22 ug/dL (50-170)
--- NOTE | 2017-03-16 15:13 | PDOC ---
PROGRESS NOTES Assessment Problems Medical Problems: (1) Acute CVA (cerebrovascular accident) Status: Acute Right hemispheric stroke symptoms, status-post tissue plasminogen activator, resolved Prior history of conversion disorder GI bleeding with TPA Plan Await follow-up head CT If negative for hemorrhage, okay to go to floor GI workup I suggest implantable loop recorder, defer to Dr. Groves I discussed my findings with the patient's family. Subjective No complaints very concerned about these episodes Objective Vital Signs Date Time Temp Pulse Resp B/P (MAP) Pulse Ox O2 Delivery O2 Flow Rate FiO2 03/16/17 15:05 98.1 60 18 143/65 98.1 03/16/17 12:00 99 Room Air 03/16/17 00:00 2.0 Intake and Output 03/16/17 07:00 Intake Total 1445.6 ml Output Total 1350 ml Balance 95.6 ml Intake Oral 605 ml IV Total 840.6 ml Output Urine Total 1350 ml PHYSICAL EXAM Alert. Oriented to time, place and person. PERRL. EOMI. CN: no focal findings. Muscle tone: normal. Muscle strength: 5/5 DTR: 2+ Plantar reflex: Flexor Gait: not examined in bed. Sensory exam: no abnormal findings. No cerebellar signs elicited. Review of Relevant I have reviewed the following items lionel (where applicable) has been applied. Labs Laboratory Tests Test 03/15/17 12:24 03/15/17 12:41 03/15/17 14:15 03/16/17 05:00 White Blood Count 6.3 x10^3/uL (4.0-11.0) 5.1 x10^3/uL (4.0-11.0) Red Blood Count 2.42 x10^6/uL (3.50-5.40) 1.89 x10^6/uL (3.50-5.40) Hemoglobin 7.9 g/dL (12.0-15.5) 6.2 g/dL (12.0-15.5) Hematocrit 23.6 % (36.0-47.0) 18.6 % (36.0-47.0) Mean Corpuscular Volume 97 fL (79-100) 98 fL (79-100) Mean Corpuscular Hemoglobin 33 pg (25-35) 33 pg (25-35) Mean Corpuscular Hemoglobin Concent 34 g/dL (31-37) 33 g/dL (31-37) Red Cell Distribution Width 16.3 % (11.5-14.5) 16.0 % (11.5-14.5) Platelet Count 201 x10^3/uL (140-400) 155 x10^3/uL (140-400) Neutrophils (%) (Auto) 67 % (31-73) 64 % (31-73) Lymphocytes (%) (Auto) 26 % (24-48) 29 % (24-48) Monocytes (%) (Auto) 5 % (0-9) 5 % (0-9) Eosinophils (%) (Auto) 1 % (0-3) 0 % (0-3) Basophils (%) (Auto) 1 % (0-3) 1 % (0-3) Neutrophils # (Auto) 4.2 x10^3uL (1.8-7.7) 3.3 x10^3uL (1.8-7.7) Lymphocytes # (Auto) 1.6 x10^3/uL (1.0-4.8) 1.5 x10^3/uL (1.0-4.8) Monocytes # (Auto) 0.3 x10^3/uL (0.0-1.1) 0.3 x10^3/uL (0.0-1.1) Eosinophils # (Auto) 0.1 x10^3/uL (0.0-0.7) 0.0 x10^3/uL (0.0-0.7) Basophils # (Auto) 0.1 x10^3/uL (0.0-0.2) 0.0 x10^3/uL (0.0-0.2) Prothrombin Time 13.0 SEC (11.7-14.0) Prothromb Time International Ratio 1.0 (0.8-1.1) Activated Partial Thromboplast Time 22 SEC (24-38) Sodium Level 138 mmol/L (136-145) 141 mmol/L (136-145) Potassium Level 4.0 mmol/L (3.5-5.1) 3.1 mmol/L (3.5-5.1) Chloride Level 105 mmol/L (98-107) 110 mmol/L (98-107) Carbon Dioxide Level 23 mmol/L (21-32) 22 mmol/L (21-32) Anion Gap 10 (6-14) 17 mmol/L (6-14) 9 (6-14) Blood Urea Nitrogen 23 mg/dL (7-20) 18 mg/dL (7-20) Creatinine 0.9 mg/dL (0.6-1.0) 0.7 mg/dL (0.6-1.0) Estimated GFR (Cockcroft-Gault) 59.5 79.5 BUN/Creatinine Ratio 26 (6-20) Glucose Level 101 mg/dL (70-99) 94 mg/dL (70-99) 92 mg/dL (70-99) Calcium Level 8.9 mg/dL (8.5-10.1) 8.0 mg/dL (8.5-10.1) Magnesium Level 2.4 mg/dL (1.8-2.4) Total Bilirubin 0.5 mg/dL (0.2-1.0) Aspartate Amino Transf (AST/SGOT) 21 U/L (15-37) Alanine Aminotransferase (ALT/SGPT) 23 U/L (14-59) Alkaline Phosphatase 78 U/L (46-116) Total Protein 6.1 g/dL (6.4-8.2) Albumin 3.3 g/dL (3.4-5.0) Albumin/Globulin Ratio 1.2 (1.0-1.7) Bedside Hemoglobin 7.1 g/dL (12-15) Bedside Hematocrit 21 % (36-40) Bedside Sodium 138 mmol/L (135-145) Bedside Potassium 3.9 mmol/L (3.5-5.0) Bedside Chloride 107 mmol/L (98-110) Bedside Total CO2 19 mmol/L (23-32) Bedside Blood Urea Nitrogen 22 mg/dL (8-26) Bedside Creatinine 0.8 mg/dL (0.5-1.4) Bedside Ionized Calcium (Stephane) 1.12 mmol/L (1.13-1.32) Urine Collection Type Unknown Urine Color Straw Urine Clarity Clear Urine pH 7.5 Urine Specific [place] 1.010 Urine Protein Negative mg/dL (NEG-TRACE) Urine Glucose (UA) Negative mg/dL (NEG) Urine Ketones (Stick) Negative mg/dL (NEG) Urine Blood Negative (NEG) Urine Nitrite Negative (NEG) Urine Bilirubin Negative (NEG) Urine Urobilinogen Dipstick 0.2 mg/dL (0.2 mg/dL) Urine Leukocyte Esterase Trace (NEG) Urine RBC 0 /HPF (0-2) Urine WBC Occ /HPF (0-4) Urine Squamous Epithelial Cells Occ /LPF Urine Bacteria Few /HPF (0-FEW) Urine Mucus Slight /LPF Iron Level 22 ug/dL (50-170) Total Iron Binding Capacity 289 ug/dL (250-450) Iron Saturation 8 % (15-34) Triglycerides Level 122 mg/dL (0-150) Cholesterol Level 113 mg/dL (0-200) LDL Cholesterol, Calculated 49 mg/dL (0-100) VLDL Cholesterol, Calculated 24 mg/dL (0-40) Non-HDL Cholesterol Calculated 73 mg/dL (0-129) HDL Cholesterol 40 mg/dL (40-60) Cholesterol/HDL Ratio 2.8 Laboratory Tests Test 03/16/17 05:00 White Blood Count 5.1 x10^3/uL (4.0-11.0) Red Blood Count 1.89 x10^6/uL (3.50-5.40) Hemoglobin 6.2 g/dL (12.0-15.5) Hematocrit 18.6 % (36.0-47.0) Mean Corpuscular Volume 98 fL (79-100) Mean Corpuscular Hemoglobin 33 pg (25-35) Mean Corpuscular Hemoglobin Concent 33 g/dL (31-37) Red Cell Distribution Width 16.0 % (11.5-14.5) Platelet Count 155 x10^3/uL (140-400) Neutrophils (%) (Auto) 64 % (31-73) Lymphocytes (%) (Auto) 29 % (24-48) Monocytes (%) (Auto) 5 % (0-9) Eosinophils (%) (Auto) 0 % (0-3) Basophils (%) (Auto) 1 % (0-3) Neutrophils # (Auto) 3.3 x10^3uL (1.8-7.7) Lymphocytes # (Auto) 1.5 x10^3/uL (1.0-4.8) Monocytes # (Auto) 0.3 x10^3/uL (0.0-1.1) Eosinophils # (Auto) 0.0 x10^3/uL (0.0-0.7) Basophils # (Auto) 0.0 x10^3/uL (0.0-0.2) Sodium Level 141 mmol/L (136-145) Potassium Level 3.1 mmol/L (3.5-5.1) Chloride Level 110 mmol/L (98-107) Carbon Dioxide Level 22 mmol/L (21-32) Anion Gap 9 (6-14) Blood Urea Nitrogen 18 mg/dL (7-20) Creatinine 0.7 mg/dL (0.6-1.0) Estimated GFR (Cockcroft-Gault) 79.5 Glucose Level 92 mg/dL (70-99) Calcium Level 8.0 mg/dL (8.5-10.1) Iron Level 22 ug/dL (50-170) Total Iron Binding Capacity 289 ug/dL (250-450) Iron Saturation 8 % (15-34) Triglycerides Level 122 mg/dL (0-150) Cholesterol Level 113 mg/dL (0-200) LDL Cholesterol, Calculated 49 mg/dL (0-100) VLDL Cholesterol, Calculated 24 mg/dL (0-40) Non-HDL Cholesterol Calculated 73 mg/dL (0-129) HDL Cholesterol 40 mg/dL (40-60) Cholesterol/HDL Ratio 2.8 Medications Current Medications Sodium Chloride 1,000 ml @ 125 mls/hr 1X ONCE IV Last administered on 12:51; Start 03/15/17 at 12:15; Stop 03/15/17 at 20:14; Status DC Alteplase, Recombinant 0 ml @ 0 mls/hr 1X ONCE IV Last administered on 13:08; Start 03/15/17 at 12:45; Stop 03/15/17 at 12:51; Status DC Alteplase, Recombinant 0 ml @ 0 mls/hr Q1H IV Last administered on 03/15/17 13: 14; Start 03/15/17 at 12:45; Stop 03/15/17 at 12:52; Status DC Sodium Chloride 50 ml @ 0 mls/hr 1X ONCE IV Last administered on 03/15/17 14: 11; Start 03/15/17 at 12:45; Stop 03/15/17 at 12:52; Status DC Methylprednisolone Sodium Succinate (Solu-Medrol 125mg Vial) 125 mg 1X ONCE IV ; Start 03/15/17 at 12:45; Stop 03/15/17 at 12:48; Status DC Famotidine (Pepcid) 20 mg 1X ONCE IVP Last administered on 03/15/17 12:50; Start 03/15/17 at 12:45; Stop 03/15/17 at 12:52; Status DC Diphenhydramine HCl (Benadryl) 25 mg 1X ONCE IVP Last administered on 12:50; Start 03/15/17 at 12:45; Stop 03/15/17 at 12:52; Status DC Hydrocortisone Sodium Succinate (Solu-Cortef) 125 mg 1X ONCE IV Last administered on 03/15/17 12:49; Start 03/15/17 at 13:00; Stop 03/15/17 at 13:01; Status DC Methylprednisolone Sodium Succinate (Solu-Medrol 125mg Vial) 125 mg STK-MED ONCE .ROUTE ; Start 03/15/17 at 12:46; Stop 03/15/17 at 12:48; Status DC Iohexol (Omnipaque 350 Mg/ml) 75 ml 1X ONCE IV ; Start 03/15/17 at 13:15; Stop 03/15/17 at 13:16; Status DC Info (Do NOT chart on this entry -- for MONITORING) 1 each PRN DAILY PRN MC SEE COMMENTS; Start 03/15/17 at 13:15; Stop 03/17/17 at 13:14 Iohexol (Omnipaque 300 Mg/ml) 60 ml 1X ONCE IV Last administered on 03/15/17 14:43; Start 03/15/17 at 14:45; Stop 03/15/17 at 14:46; Status DC Ondansetron HCl (Zofran) 4 mg PRN Q8HRS PRN IV NAUSEA/VOMITING; Start 03/15/17 at 15:00; Stop 03/16/17 at 14:59; Status DC Sodium Chloride 1,000 ml @ 125 mls/hr Q8H IV ; Start 03/15/17 at 15:15; Stop 03/15/17 at 16:39; Status DC Sodium Chloride 1,000 ml @ 70 mls/hr [id number] IV Last administered on 03/16/17 07:18; Start 03/15/17 at 17:00 Labetalol HCl (Normodyne) 10 mg PRN Q10MIN PRN IV HYPERTENSION, SEE COMMENTS; Start 03/15/17 at 16:30 Nicardipine HCl 50 mg/Sodium Chloride 270 ml @ 27 mls/hr CONT PRN IV HYPERTENSION, SEE COMMENTS; Start 03/15/17 at 16:30 Acetaminophen (Tylenol) 650 mg PRN Q6HRS PRN PO MILD PAIN / TEMP; Start at 16:30 Acetaminophen (Tylenol) 325 mg PRN Q6HRS PRN OK MILD PAIN / TEMP; Start at 16:30 Ondansetron HCl (Zofran) 4 mg PRN Q6HRS PRN IV NAUSEA/VOMITING; Start 03/15/17 at 16:30 Atorvastatin Calcium (Lipitor) 20 mg HS PO Last administered on 03/15/17 20:56 ; Start 03/15/17 at 21:00 Magnesium Hydroxide (Milk Of Magnesia) 2,400 mg QHS PO Last administered on 03/15 20:56; Start 03/15/17 at 21:00 Amiodarone HCl (Cordarone) 100 mg DAILY PO Last administered on 03/16/17 11:46 ; Start 03/16/17 at 11:00 Levothyroxine Sodium (Synthroid) 75 mcg DAILYAC PO ; Start 03/17/17 at 07:30; Stop 03/17/17 at 07:30; Status DC Pantoprazole Sodium (Protonix) 40 mg DAILYAC PO Last administered on 03/16/17 11:45; Start 03/16/17 at 11:30 Potassium Chloride (Klor-Con) 40 meq 1X ONCE PO Last administered on 03/16/17 11:45; Start 03/16/17 at 10:30; Stop 03/16/17 at 10:31; Status DC Levothyroxine Sodium (Synthroid) 75 mcg DAILYAC PO Last administered on 11:45; Start 03/16/17 at 10:30 Active Scripts Active Reported Levothyroxine Sodium 75 Mcg Tablet 75 Mcg PO DAILYAC Milk Of Magnesia (Magnesium Hydroxide) 2,400 Mg/10 Ml Oral.susp 2,400 Mg PO QHS Atorvastatin Calcium 20 Mg Tablet 1 Mg PO HS Isosorbide Mononitrate Er (Isosorbide Mononitrate) 60 Mg Tab.er.24h 1 Mg PO HS Amiodarone Hcl 200 Mg Tablet 0.5 Tab PO DAILY Pantoprazole Sodium 40 Mg Tablet.dr 1 Tab PO DAILY LAST DOSE GIVEN: DATE: 2014 TIME: 9:00 AM NEXT DOSE DUE: DATE: 2014 TIME: 9:00 AM Aspir 81 (Aspirin) 81 Mg Tablet.dr 1 Tab PO DAILY LAST DOSE GIVEN: DATE: 2014 TIME: 9:00 AM NEXT DOSE DUE: DATE: 2014 TIME: 9:00 AM Clopidogrel (Clopidogrel Bisulfate) 75 Mg Tablet 1 Tab PO QHS LAST DOSE GIVEN: DATE: 2014 TIME: 9:00 PM NEXT DOSE DUE: DATE: 2014 TIME: 9:00 PM Vitals/I & O Vital Sign - Last 24 Hours 03/15/17 03/15/17 03/15/17 03/15/17 15:18 15:33 15:48 16:03 Pulse 60 60 60 60 Resp 16 18 18 18 B/P (MAP) 124/58 (80) 132/59 (83) 126/60 (82) 142/60 (87) Pulse Ox 100 100 99 98 O2 Delivery Nasal Cannula Room Air O2 Flow Rate 2.0 03/15/17 03/15/17 03/15/17 03/15/17 16:33 17:03 17:30 17:45 Temp 98.2 98.2 Pulse 60 60 60 60 Resp 16 16 18 19 B/P (MAP) 120/59 (79) 123/57 (79) 108/76 (87) 135/63 (87) Pulse Ox 99 97 99 99 O2 Delivery Room Air Room Air Room Air 03/15/17 03/15/17 03/15/17 03/15/17 18:00 18:15 19:00 20:00 Temp 98.0 98.0 Pulse 60 62 60 60 Resp 19 17 16 18 B/P (MAP) 141/67 (91) 172/66 (101) 135/68 (90) 110/61 (77) Pulse Ox 100 100 99 99 O2 Delivery Room Air Room Air Room Air Room Air 03/15/17 03/15/17 03/15/17 03/15/17 20:00 21:00 21:56 22:00 Pulse 60 60 Resp 18 18 B/P (MAP) 120/61 (80) 111/58 (75) Pulse Ox 98 96 O2 Delivery Room Air Room Air Room Air O2 Flow Rate 2.0 03/15/17 03/16/17 03/16/17 03/16/17 23:00 00:00 00:00 01:00 Temp 97.9 97.9 Pulse 60 60 60 Resp 16 15 20 B/P (MAP) 110/53 (72) 124/63 (83) 94/50 (65) Pulse Ox 98 97 100 O2 Delivery Room Air Room Air Room Air O2 Flow Rate 2.0 03/16/17 03/16/17 03/16/17 03/16/17 02:00 03:00 04:00 04:00 Temp 97.7 97.7 Pulse 60 60 60 Resp 17 14 16 B/P (MAP) 99/48 (65) 97/46 (63) 102/49 (66) Pulse Ox 97 99 98 O2 Delivery Room Air Room Air Room Air Room Air 03/16/17 03/16/17 03/16/17 03/16/17 05:00 06:00 08:00 09:00 Pulse 60 60 64 Resp 16 15 23 B/P (MAP) 112/55 (74) 117/57 (77) 153/78 (103) Pulse Ox 98 99 100 O2 Delivery Room Air Room Air Room Air Room Air 03/16/17 03/16/17 03/16/17 03/16/17 11:38 11:46 11:52 12:00 Temp 98.0 98.0 98.0 98.0 98.0 98.0 Pulse 63 63 60 60 Resp 19 19 18 B/P (MAP) 112/57 112/57 128/54 152/60 (90) Pulse Ox 99 O2 Delivery Room Air 03/16/17 03/16/17 03/16/17 03/16/17 12:50 12:55 13:09 15:05 Temp 98.0 98.0 98.0 98.1 98.0 98.0 98.0 98.1 Pulse 60 60 61 60 Resp 18 18 19 18 B/P (MAP) 152/60 148/60 143/65 143/65 Intake and Output 03/15/17 03/15/17 03/16/17 15:00 23:00 07:00 Intake Total 50.6 ml 605 ml 790 ml Output Total 850 ml 500 ml Balance 50.6 ml -245 ml 290 ml Images Carotid Dopplers negative CHARLA HICKEY MD March 16, 2017 15:13
--- NOTE | 2017-03-16 15:39 | RAD ---
Follow-up CVA. Status post TPA. Noncontrast images of the head were obtained and are compared to an examination yesterday. The calvarium remains unremarkable and the visualized paranasal sinuses appear normal there is no subdural or epidural hematoma. Ventricles and sulci are unchanged. There is no hemorrhage. An acute finding or significant change since yesterday's study is not seen. IMPRESSION: No acute finding. No significant change. No evidence of hemorrhage. PQRS Compliance Statement: One or more of the following individualized dose reduction techniques were utilized for this examination: 1. Automated exposure control 2. Adjustment of the mA and/or kV according to patient size 3. Use of iterative reconstruction technique
[2017-03-16] MEDS: MAGNESIUM HYDROXIDE 2,400 MG/30 ML ORAL.SUSP. PO SCH (20:33)
[2017-03-16] MEDS: ATORVASTATIN CALCIUM 20 MG TABLET PO SCH (20:33)
--- NOTE | 2017-03-16 23:46 | CONS ---
DATE OF CONSULTATION: 03/16/2017 REFERRING PHYSICIAN: Dr. Nicholson. REASON FOR CONSULTATION: Anemia and melena, status post TPA infusion. HISTORY OF PRESENT ILLNESS: This is an 86-year-old female whose past medical history is significant for coronary artery disease, hypertension, and her recent neurologic event, impending CVA, which is improved with TPA, which has now been complicated by melena and drop in hemoglobin and hematocrit. The patient states that since she has been having dark stools, ____ been concerned with them. She does not take any iron or Pepto-Bismol on a regular basis. Prior colonoscopies in the past have revealed colonic polyps at that time, as well as nonerosive gastritis and duodenitis on an upper endoscopy with dilatation approximately 4 years previously. She does note the drop in hemoglobin and hematocrit today with some dark stools, but has had no alona hematemesis or hematochezia and consultation is requested to assist with further management and care. PAST MEDICAL HISTORY: ____, hypertension, CAD, history of CVA, history of pacemaker defibrillator, appendectomy, CABG, total knee replacement, tonsillectomy, hysterectomy. ALLERGIES: CODEINE, IODINE, DEMEROL, MORPHINE. MEDICATIONS: Presently include pantoprazole, amiodarone, levothyroxine, atorvastatin, nifedipine, labetalol. SOCIAL HISTORY: She is retired. She does not drink or smoke. FAMILY HISTORY: Noncontributory. REVIEW OF SYSTEMS: Per records. PHYSICAL EXAMINATION: VITAL SIGNS: Temperature is 97.7, pulse 84, respirations 23, blood pressure 153/78. HEENT: Normocephalic and atraumatic head. Pupils and extraocular muscles not tested. Sclerae anicteric. NECK: Supple. LUNGS: Clear. CARDIOVASCULAR: Reveals an S1, S2 without S3, S4 or appreciable murmur. LUNGS: Reveal decreased breath sounds anteriorly. CARDIOVASCULAR: S1, S2 without S3, S4 or appreciable murmur. ABDOMEN: Reveal a soft abdomen, normal bowel sounds, without appreciable hepatosplenomegaly. Multiple surgical incisions. EXTREMITIES: Reveals no cyanosis, clubbing or edema. LABORATORY STUDIES: Hemoglobin 6.2, hematocrit 18.6, white count 5.1, platelet count is 155,000. Sodium is 138, potassium 3.1, chloride 110, bicarbonate 22, BUN 18, creatinine 0.7, calcium is 8.0, glucose is 92. Magnesium 2.4, total bilirubin 0.5, AST of 21, ALT of 23, alkaline phosphatase 78, total bilirubin 6.1, albumin 3.3, triglycerides 122. INR is 1.0. IMPRESSION: Acute blood loss anemia with previous melena and TPA therapy. Gastrointestinal differential includes ulcers, malignancy of stomach, colon, esophagus, arteriovenous malformation, irritable bowel disease, recurrent colonic polyps. Therefore, recommend transfusional support and empiric therapy for peptic ulcer disease in view of her recent cerebrovascular accident, which has been reversed with TPA. Would defer an endoscopic evaluation unless the patient would have continued bleeding, at which time upper endoscopy would be pursued while she is an inpatient. I would like to thank Dr. Nicholson for allowing me to participate in the care of this complicated patient. DANIELA WYNNE MD DR: OXANA/yesenia JOB#: [id number] / [id number] erik Lester, CLAUDINE NICHOLSON MD
[2017-03-17] VITALS (7 sets, daily range): BP systolic 118–175; BP diastolic 43–78
--- NOTE | 2017-03-17 04:44 | CONS ---
DATE OF CONSULTATION: HISTORY OF PRESENT ILLNESS: This patient is being seen for Dr. Groves. Dr. Groves saw her briefly in the Emergency Room yesterday when she was hospitalized. She came in because while taking a shower, she experienced severe numbness of her left arm and left leg. She was also not able to talk. In the Emergency Room, her speech was unintelligible. However, she is right handed. She was thus given intravenous TPA after a negative CT. She says that soon after the TPA, her left arm felt much better. She then underwent a CT angiogram of the head and neck to see if there is any other intervention that might need to be carried out for which she would have had to be transferred to [facility]. The CTA was relatively negative. She was then hospitalized. Since being in, her left arm has become much better. She was weak. 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 She was numb and the numbness has resolved. She has good coordination of the left arm. She is right handed. She remembers that she could not talk very well when she came in, but now is able to speak well. She is also able to swallow. She was given, she says, 2 large tablets to swallow and she wanted to challenge herself and she was able to swallow it. Thereafter, she says she enjoyed a good lunch. She has had symptoms of left arm numbness in the past. Recently, she was hospitalized after a fall with pelvic fractures. PRESENT MEDICATIONS: 1. Amiodarone 200 mg a day for atrial fibrillation. She had been on anticoagulation, but then had bleeding and so she now takes aspirin and Plavix. 2. Aspirin 81 mg a day. 3. Atorvastatin 20 mg a day. 4. Clopidogrel 75 mg a day. 5. Isosorbide mononitrate 60 mg a day. 6. Synthroid 75 mcg a day. 7. Magnesium hydroxide. 8. Protonix 40 mg a day. PAST MEDICAL HISTORY: She has had coronary artery bypass grafting. Thereafter, she has had stenting. She has had no recent chest pain. She has had a total knee replacement. She has had a thyroidectomy and is on thyroid supplements. She has also had a hysterectomy. Supposedly, she has had temporal lobe tumor. She is being seen by Dr. Webber. SOCIAL HISTORY: She does not smoke or take alcohol. PHYSICAL EXAMINATION: GENERAL: She was seated in a chair. She was answering questions. She was oriented to time, place and person. VITAL SIGNS: The heart rate was 60 per minute. The blood pressure was 140/70. LUNGS: Clear. HEART: The heart sounds were normal with no murmur or gallop. ABDOMEN: Soft. EXTREMITIES: There was no edema of the legs. NEUROLOGIC: There was a grade 3/6 strength in both arms. Coordination was good in both upper extremities. The gait was not evaluated. IMAGING: An EKG showed atrial fibrillation with a controlled ventricular response. There were nonspecific ST-T wave changes. A chest x-ray was normal. IMPRESSION: 1. Left-sided cerebrovascular accident, symptoms resolved with TPA. 2. Permanent atrial fibrillation, on aspirin and Plavix. 3. Coronary artery disease, status post coronary artery bypass grafting and stenting, asymptomatic at the present time. She does feel much better. She will be transferred out of the ICU and undergo physical therapy. An echocardiogram has been performed and will be read by Dr. Groves. Dr. Groves will then determine if RAIMUNDO is necessary to see if this could be a left atrial thrombus, that embolism caused her to have the cerebral symptoms. TALIB RAMIREZ MD DR: KIMBERLEE/yesenia JOB#: [id number] / [id number]
[2017-03-17 05:32] LABS: BASO % 1 % (0-3); EOS % 2 % (0-3); HEMATOCRIT 27.3 % (36.0-47.0); HEMOGLOBIN 9.5 g/dL (12.0-15.5); LYMPH # 2.1 x10^3/uL (1.0-4.8); LYMPH % 33 % (24-48); MEAN CORPUSCULAR HEMOGLOBIN 30 pg (25-35); MEAN CORPUSCULAR HGB CONC 35 g/dL (31-37); MEAN CORPUSCULAR VOLUME 87 fL (79-100); MONO % 5 % (0-9); NEUT % 60 % (31-73); PLATELET COUNT 169 x10^3/uL (140-400); RED BLOOD COUNT 3.14 x10^6/uL (3.50-5.40); RED CELL DISTRIBUTION WIDTH 21.3 % (11.5-14.5); WHITE BLOOD COUNT 6.2 x10^3/uL (4.0-11.0)
[2017-03-17 05:39] LABS: ALBUMIN 2.9 g/dL (3.4-5.0); ALBUMIN/GLOBULIN RATIO 1.2 (1.0-1.7); CALCIUM 8.2 mg/dL (8.5-10.1); CREATININE 0.8 mg/dL (0.6-1.0); GFR 68.2; MAGNESIUM 2.7 mg/dL (1.8-2.4); POTASSIUM 4.3 mmol/L (3.5-5.1); TOTAL BILIRUBIN 0.7 mg/dL (0.2-1.0); TOTAL PROTEIN 5.4 g/dL (6.4-8.2)
[2017-03-17] MEDS ORDERED: LEVOTHYROXINE 75 MCG TABLET PO SCH (07:30)
[2017-03-17] MEDS: LEVOTHYROXINE 75 MCG TABLET PO SCH (08:39)
[2017-03-17] MEDS: PANTOPRAZOLE 40 MG TABLET.DR. PO SCH (08:39)
[2017-03-17] MEDS: AMIODARONE HCL 200 MG TABLET. PO SCH (09:00)
[2017-03-17 09:49] LABS: FOLATE 17.89 ng/ml (3.2-20.0)
--- NOTE | 2017-03-17 11:28 | PDOC ---
Subjective: Subjective: Had a dark loose stool this morning. Objective: Vital Signs: Vital Signs Date Time Temp Pulse Resp B/P (MAP) Pulse Ox O2 Delivery O2 Flow Rate FiO2 03/17/17 11:00 97.9 63 16 175/65 (101) 99 Room Air 97.9 Labs: Laboratory Tests Test 03/17/17 04:30 White Blood Count 6.2 x10^3/uL Red Blood Count 3.14 x10^6/uL Hemoglobin 9.5 g/dL Hematocrit 27.3 % Mean Corpuscular Volume 87 fL Mean Corpuscular Hemoglobin 30 pg Mean Corpuscular Hemoglobin Concent 35 g/dL Red Cell Distribution Width 21.3 % Platelet Count 169 x10^3/uL Neutrophils (%) (Auto) 60 % Lymphocytes (%) (Auto) 33 % Monocytes (%) (Auto) 5 % Eosinophils (%) (Auto) 2 % Basophils (%) (Auto) 1 % Neutrophils # (Auto) 3.7 x10^3uL Lymphocytes # (Auto) 2.1 x10^3/uL Monocytes # (Auto) 0.3 x10^3/uL Eosinophils # (Auto) 0.1 x10^3/uL Basophils # (Auto) 0.0 x10^3/uL Reticulocyte Count (auto) 4.8 % Sodium Level 141 mmol/L Potassium Level 4.3 mmol/L Chloride Level 109 mmol/L Carbon Dioxide Level 24 mmol/L Anion Gap 8 Blood Urea Nitrogen 16 mg/dL Creatinine 0.8 mg/dL Estimated GFR (Cockcroft-Gault) 68.2 BUN/Creatinine Ratio 20 Glucose Level 84 mg/dL Calcium Level 8.2 mg/dL Magnesium Level 2.7 mg/dL Total Bilirubin 0.7 mg/dL Aspartate Amino Transf (AST/SGOT) 27 U/L Alanine Aminotransferase (ALT/SGPT) 28 U/L Alkaline Phosphatase 64 U/L Total Protein 5.4 g/dL Albumin 2.9 g/dL Albumin/Globulin Ratio 1.2 PE: GEN: NAD LUNGS: clear anteriorly HEART: S1S2 ABD: NABS, S/ND/NT NEURO/PSYCH: A & O 3 A/P: RONALDO, melena, h/o colon polyps -CVA s/p TPA -on PPI, B12 -Hgb 8.9 yo 6.2 to 9.5 s/p transfusion -last EGD ~4 years ago -- Dark stools continue. Hgb improved after transfusion. Continue PPI. Will review w/ Dr. Hamlin. SCOTT RICHARDSON March 17, 2017 11:27
--- NOTE | 2017-03-17 11:46 | PDOC ---
PROGRESS NOTES Chief Complaint Chief Complaint 1. Acute CVA with expressive aphasia 2. Anemia 3. CAD, s/p CABG w/ pacer for heart block 4. Hypokalemia 5. GERD 6. Hypothyroid History of Present Illness History of Present Illness Ms. Banuelos was lying in bed in NAD when we saw her. She states she is feeling much better and no longer has trouble speaking or weakness. Vitals Vitals Vital Signs Date Time Temp Pulse Resp B/P (MAP) Pulse Ox O2 Delivery O2 Flow Rate FiO2 03/17/17 11:00 97.9 63 16 175/65 (101) 99 Room Air 97.9 Physical Exam General: Alert, Oriented X3, Cooperative, No acute distress Heart: Regular rate (paced), Normal S1, Normal S2 Lungs: Clear Abdomen: Normal bowel sounds, Soft Extremities: No clubbing, No edema Skin: No rashes, Other (erythema of R knee) Labs LABS Laboratory Tests Test 03/17/17 04:30 White Blood Count 6.2 x10^3/uL (4.0-11.0) Red Blood Count 3.14 x10^6/uL (3.50-5.40) Hemoglobin 9.5 g/dL (12.0-15.5) Hematocrit 27.3 % (36.0-47.0) Mean Corpuscular Volume 87 fL (79-100) Mean Corpuscular Hemoglobin 30 pg (25-35) Mean Corpuscular Hemoglobin Concent 35 g/dL (31-37) Red Cell Distribution Width 21.3 % (11.5-14.5) Platelet Count 169 x10^3/uL (140-400) Neutrophils (%) (Auto) 60 % (31-73) Lymphocytes (%) (Auto) 33 % (24-48) Monocytes (%) (Auto) 5 % (0-9) Eosinophils (%) (Auto) 2 % (0-3) Basophils (%) (Auto) 1 % (0-3) Neutrophils # (Auto) 3.7 x10^3uL (1.8-7.7) Lymphocytes # (Auto) 2.1 x10^3/uL (1.0-4.8) Monocytes # (Auto) 0.3 x10^3/uL (0.0-1.1) Eosinophils # (Auto) 0.1 x10^3/uL (0.0-0.7) Basophils # (Auto) 0.0 x10^3/uL (0.0-0.2) Reticulocyte Count (auto) 4.8 % (0.5-2.5) Sodium Level 141 mmol/L (136-145) Potassium Level 4.3 mmol/L (3.5-5.1) Chloride Level 109 mmol/L (98-107) Carbon Dioxide Level 24 mmol/L (21-32) Anion Gap 8 (6-14) Blood Urea Nitrogen 16 mg/dL (7-20) Creatinine 0.8 mg/dL (0.6-1.0) Estimated GFR (Cockcroft-Gault) 68.2 BUN/Creatinine Ratio 20 (6-20) Glucose Level 84 mg/dL (70-99) Calcium Level 8.2 mg/dL (8.5-10.1) Magnesium Level 2.7 mg/dL (1.8-2.4) Total Bilirubin 0.7 mg/dL (0.2-1.0) Aspartate Amino Transf (AST/SGOT) 27 U/L (15-37) Alanine Aminotransferase (ALT/SGPT) 28 U/L (14-59) Alkaline Phosphatase 64 U/L (46-116) Total Protein 5.4 g/dL (6.4-8.2) Albumin 2.9 g/dL (3.4-5.0) Albumin/Globulin Ratio 1.2 (1.0-1.7) Review of Systems Review of Systems General: denies fatigue Neuro: denies trouble with speech, denies L extremity weakness, denies numbness/ tingling Assessment and Plan Assessmemt and Plan Problems Medical Problems: (1) Acute CVA (cerebrovascular accident) Status: Acute 1. Acute CVA with expressive aphasia 2. Anemia 3. CAD, s/p CABG w/ pacer for heart block 4. Hypokalemia 5. GERD 6. Hypothyroid Plan: -Consulting Heme/Onc for anemia, Hg 9.5 today -PRN infusions if Hg below 8 -Follow with Cardiology for anticoagulation due to h/o A.Fib with pacemaker -Recheck AM labs - trend Hg -PT/OT as appropriate -Possible discharge tomorrow -Subspecialty input appreciated Problems: Comment Review of Relevant I have reviewed the following items lionel (where applicable) has been applied. Labs Laboratory Tests Test 03/15/17 12:24 03/15/17 12:41 03/15/17 14:15 03/15/17 18:30 White Blood Count 6.3 x10^3/uL (4.0-11.0) Red Blood Count 2.42 x10^6/uL (3.50-5.40) Hemoglobin 7.9 g/dL (12.0-15.5) Hematocrit 23.6 % (36.0-47.0) Mean Corpuscular Volume 97 fL (79-100) Mean Corpuscular Hemoglobin 33 pg (25-35) Mean Corpuscular Hemoglobin Concent 34 g/dL (31-37) Red Cell Distribution Width 16.3 % (11.5-14.5) Platelet Count 201 x10^3/uL (140-400) Neutrophils (%) (Auto) 67 % (31-73) Lymphocytes (%) (Auto) 26 % (24-48) Monocytes (%) (Auto) 5 % (0-9) Eosinophils (%) (Auto) 1 % (0-3) Basophils (%) (Auto) 1 % (0-3) Neutrophils # (Auto) 4.2 x10^3uL (1.8-7.7) Lymphocytes # (Auto) 1.6 x10^3/uL (1.0-4.8) Monocytes # (Auto) 0.3 x10^3/uL (0.0-1.1) Eosinophils # (Auto) 0.1 x10^3/uL (0.0-0.7) Basophils # (Auto) 0.1 x10^3/uL (0.0-0.2) Prothrombin Time 13.0 SEC (11.7-14.0) Prothromb Time International Ratio 1.0 (0.8-1.1) Activated Partial Thromboplast Time 22 SEC (24-38) Sodium Level 138 mmol/L (136-145) Potassium Level 4.0 mmol/L (3.5-5.1) Chloride Level 105 mmol/L (98-107) Carbon Dioxide Level 23 mmol/L (21-32) Anion Gap 10 (6-14) 17 mmol/L (6-14) Blood Urea Nitrogen 23 mg/dL (7-20) Creatinine 0.9 mg/dL (0.6-1.0) Estimated GFR (Cockcroft-Gault) 59.5 BUN/Creatinine Ratio 26 (6-20) Glucose Level 101 mg/dL (70-99) 94 mg/dL (70-99) Calcium Level 8.9 mg/dL (8.5-10.1) Magnesium Level 2.4 mg/dL (1.8-2.4) Total Bilirubin 0.5 mg/dL (0.2-1.0) Aspartate Amino Transf (AST/SGOT) 21 U/L (15-37) Alanine Aminotransferase (ALT/SGPT) 23 U/L (14-59) Alkaline Phosphatase 78 U/L (46-116) Total Protein 6.1 g/dL (6.4-8.2) Albumin 3.3 g/dL (3.4-5.0) Albumin/Globulin Ratio 1.2 (1.0-1.7) Bedside Hemoglobin 7.1 g/dL (12-15) Bedside Hematocrit 21 % (36-40) Bedside Sodium 138 mmol/L (135-145) Bedside Potassium 3.9 mmol/L (3.5-5.0) Bedside Chloride 107 mmol/L (98-110) Bedside Total CO2 19 mmol/L (23-32) Bedside Blood Urea Nitrogen 22 mg/dL (8-26) Bedside Creatinine 0.8 mg/dL (0.5-1.4) Bedside Ionized Calcium (Stephane) 1.12 mmol/L (1.13-1.32) Urine Collection Type Unknown Urine Color Straw Urine Clarity Clear Urine pH 7.5 Urine Specific Tebbetts 1.010 Urine Protein Negative mg/dL (NEG-TRACE) Urine Glucose (UA) Negative mg/dL (NEG) Urine Ketones (Stick) Negative mg/dL (NEG) Urine Blood Negative (NEG) Urine Nitrite Negative (NEG) Urine Bilirubin Negative (NEG) Urine Urobilinogen Dipstick 0.2 mg/dL (0.2 mg/dL) Urine Leukocyte Esterase Trace (NEG) Urine RBC 0 /HPF (0-2) Urine WBC Occ /HPF (0-4) Urine Squamous Epithelial Cells Occ /LPF Urine Bacteria Few /HPF (0-FEW) Urine Mucus Slight /LPF Nasal Screen MRSA (PCR) Negative (Negative) Test 03/16/17 05:00 03/17/17 04:30 White Blood Count 5.1 x10^3/uL (4.0-11.0) 6.2 x10^3/uL (4.0-11.0) Red Blood Count 1.89 x10^6/uL (3.50-5.40) 3.14 x10^6/uL (3.50-5.40) Hemoglobin 6.2 g/dL (12.0-15.5) 9.5 g/dL (12.0-15.5) Hematocrit 18.6 % (36.0-47.0) 27.3 % (36.0-47.0) Mean Corpuscular Volume 98 fL (79-100) 87 fL (79-100) Mean Corpuscular Hemoglobin 33 pg (25-35) 30 pg (25-35) Mean Corpuscular Hemoglobin Concent 33 g/dL (31-37) 35 g/dL (31-37) Red Cell Distribution Width 16.0 % (11.5-14.5) 21.3 % (11.5-14.5) Platelet Count 155 x10^3/uL (140-400) 169 x10^3/uL (140-400) Neutrophils (%) (Auto) 64 % (31-73) 60 % (31-73) Lymphocytes (%) (Auto) 29 % (24-48) 33 % (24-48) Monocytes (%) (Auto) 5 % (0-9) 5 % (0-9) Eosinophils (%) (Auto) 0 % (0-3) 2 % (0-3) Basophils (%) (Auto) 1 % (0-3) 1 % (0-3) Neutrophils # (Auto) 3.3 x10^3uL (1.8-7.7) 3.7 x10^3uL (1.8-7.7) Lymphocytes # (Auto) 1.5 x10^3/uL (1.0-4.8) 2.1 x10^3/uL (1.0-4.8) Monocytes # (Auto) 0.3 x10^3/uL (0.0-1.1) 0.3 x10^3/uL (0.0-1.1) Eosinophils # (Auto) 0.0 x10^3/uL (0.0-0.7) 0.1 x10^3/uL (0.0-0.7) Basophils # (Auto) 0.0 x10^3/uL (0.0-0.2) 0.0 x10^3/uL (0.0-0.2) Sodium Level 141 mmol/L (136-145) 141 mmol/L (136-145) Potassium Level 3.1 mmol/L (3.5-5.1) 4.3 mmol/L (3.5-5.1) Chloride Level 110 mmol/L (98-107) 109 mmol/L (98-107) Carbon Dioxide Level 22 mmol/L (21-32) 24 mmol/L (21-32) Anion Gap 9 (6-14) 8 (6-14) Blood Urea Nitrogen 18 mg/dL (7-20) 16 mg/dL (7-20) Creatinine 0.7 mg/dL (0.6-1.0) 0.8 mg/dL (0.6-1.0) Estimated GFR (Cockcroft-Gault) 79.5 68.2 Glucose Level 92 mg/dL (70-99) 84 mg/dL (70-99) Calcium Level 8.0 mg/dL (8.5-10.1) 8.2 mg/dL (8.5-10.1) Iron Level 22 ug/dL (50-170) Total Iron Binding Capacity 289 ug/dL (250-450) Iron Saturation 8 % (15-34) Triglycerides Level 122 mg/dL (0-150) Cholesterol Level 113 mg/dL (0-200) LDL Cholesterol, Calculated 49 mg/dL (0-100) VLDL Cholesterol, Calculated 24 mg/dL (0-40) Non-HDL Cholesterol Calculated 73 mg/dL (0-129) HDL Cholesterol 40 mg/dL (40-60) Cholesterol/HDL Ratio 2.8 Vitamin B12 Level 385 pg/mL (247-911) Serum Folate 17.89 ng/ml (3.2-20.0) Reticulocyte Count (auto) 4.8 % (0.5-2.5) BUN/Creatinine Ratio 20 (6-20) Magnesium Level 2.7 mg/dL (1.8-2.4) Total Bilirubin 0.7 mg/dL (0.2-1.0) Aspartate Amino Transf (AST/SGOT) 27 U/L (15-37) Alanine Aminotransferase (ALT/SGPT) 28 U/L (14-59) Alkaline Phosphatase 64 U/L (46-116) Total Protein 5.4 g/dL (6.4-8.2) Albumin 2.9 g/dL (3.4-5.0) Albumin/Globulin Ratio 1.2 (1.0-1.7) Laboratory Tests Test 03/17/17 04:30 White Blood Count 6.2 x10^3/uL (4.0-11.0) Red Blood Count 3.14 x10^6/uL (3.50-5.40) Hemoglobin 9.5 g/dL (12.0-15.5) Hematocrit 27.3 % (36.0-47.0) Mean Corpuscular Volume 87 fL (79-100) Mean Corpuscular Hemoglobin 30 pg (25-35) Mean Corpuscular Hemoglobin Concent 35 g/dL (31-37) Red Cell Distribution Width 21.3 % (11.5-14.5) Platelet Count 169 x10^3/uL (140-400) Neutrophils (%) (Auto) 60 % (31-73) Lymphocytes (%) (Auto) 33 % (24-48) Monocytes (%) (Auto) 5 % (0-9) Eosinophils (%) (Auto) 2 % (0-3) Basophils (%) (Auto) 1 % (0-3) Neutrophils # (Auto) 3.7 x10^3uL (1.8-7.7) Lymphocytes # (Auto) 2.1 x10^3/uL (1.0-4.8) Monocytes # (Auto) 0.3 x10^3/uL (0.0-1.1) Eosinophils # (Auto) 0.1 x10^3/uL (0.0-0.7) Basophils # (Auto) 0.0 x10^3/uL (0.0-0.2) Reticulocyte Count (auto) 4.8 % (0.5-2.5) Sodium Level 141 mmol/L (136-145) Potassium Level 4.3 mmol/L (3.5-5.1) Chloride Level 109 mmol/L (98-107) Carbon Dioxide Level 24 mmol/L (21-32) Anion Gap 8 (6-14) Blood Urea Nitrogen 16 mg/dL (7-20) Creatinine 0.8 mg/dL (0.6-1.0) Estimated GFR (Cockcroft-Gault) 68.2 BUN/Creatinine Ratio 20 (6-20) Glucose Level 84 mg/dL (70-99) Calcium Level 8.2 mg/dL (8.5-10.1) Magnesium Level 2.7 mg/dL (1.8-2.4) Total Bilirubin 0.7 mg/dL (0.2-1.0) Aspartate Amino Transf (AST/SGOT) 27 U/L (15-37) Alanine Aminotransferase (ALT/SGPT) 28 U/L (14-59) Alkaline Phosphatase 64 U/L (46-116) Total Protein 5.4 g/dL (6.4-8.2) Albumin 2.9 g/dL (3.4-5.0) Albumin/Globulin Ratio 1.2 (1.0-1.7) Microbiology 03/15/17 Blood Culture - Preliminary, Resulted NO GROWTH AFTER 1 DAY Medications Current Medications Sodium Chloride 1,000 ml @ 125 mls/hr 1X ONCE IV Last administered on 12:51; Start 03/15/17 at 12:15; Stop 03/15/17 at 20:14; Status DC Alteplase, Recombinant 0 ml @ 0 mls/hr 1X ONCE IV Last administered on 13:08; Start 03/15/17 at 12:45; Stop 03/15/17 at 12:51; Status DC Alteplase, Recombinant 0 ml @ 0 mls/hr Q1H IV Last administered on 03/15/17 13: 14; Start 03/15/17 at 12:45; Stop 03/15/17 at 12:52; Status DC Sodium Chloride 50 ml @ 0 mls/hr 1X ONCE IV Last administered on 03/15/17 14: 11; Start 03/15/17 at 12:45; Stop 03/15/17 at 12:52; Status DC Methylprednisolone Sodium Succinate (Solu-Medrol 125mg Vial) 125 mg 1X ONCE IV ; Start 03/15/17 at 12:45; Stop 03/15/17 at 12:48; Status DC Famotidine (Pepcid) 20 mg 1X ONCE IVP Last administered on 03/15/17 12:50; Start 03/15/17 at 12:45; Stop 03/15/17 at 12:52; Status DC Diphenhydramine HCl (Benadryl) 25 mg 1X ONCE IVP Last administered on 12:50; Start 03/15/17 at 12:45; Stop 03/15/17 at 12:52; Status DC Hydrocortisone Sodium Succinate (Solu-Cortef) 125 mg 1X ONCE IV Last administered on 03/15/17 12:49; Start 03/15/17 at 13:00; Stop 03/15/17 at 13:01; Status DC Methylprednisolone Sodium Succinate (Solu-Medrol 125mg Vial) 125 mg STK-MED ONCE .ROUTE ; Start 03/15/17 at 12:46; Stop 03/15/17 at 12:48; Status DC Iohexol (Omnipaque 350 Mg/ml) 75 ml 1X ONCE IV ; Start 03/15/17 at 13:15; Stop 03/15/17 at 13:16; Status DC Info (Do NOT chart on this entry -- for MONITORING) 1 each PRN DAILY PRN MC SEE COMMENTS; Start 03/15/17 at 13:15; Stop 03/17/17 at 13:14 Iohexol (Omnipaque 300 Mg/ml) 60 ml 1X ONCE IV Last administered on 03/15/17 14:43; Start 03/15/17 at 14:45; Stop 03/15/17 at 14:46; Status DC Ondansetron HCl (Zofran) 4 mg PRN Q8HRS PRN IV NAUSEA/VOMITING; Start 03/15/17 at 15:00; Stop 03/16/17 at 14:59; Status DC Sodium Chloride 1,000 ml @ 125 mls/hr Q8H IV ; Start 03/15/17 at 15:15; Stop 03/15/17 at 16:39; Status DC Sodium Chloride 1,000 ml @ 70 mls/hr [id number] IV Last administered on 03/16/17 07:18; Start 03/15/17 at 17:00; Stop 03/16/17 at 16:02; Status DC Labetalol HCl (Normodyne) 10 mg PRN Q10MIN PRN IV HYPERTENSION, SEE COMMENTS; Start 03/15/17 at 16:30 Nicardipine HCl 50 mg/Sodium Chloride 270 ml @ 27 mls/hr CONT PRN IV HYPERTENSION, SEE COMMENTS; Start 03/15/17 at 16:30 Acetaminophen (Tylenol) 650 mg PRN Q6HRS PRN PO MILD PAIN / TEMP; Start at 16:30 Acetaminophen (Tylenol) 325 mg PRN Q6HRS PRN ME MILD PAIN / TEMP; Start at 16:30 Ondansetron HCl (Zofran) 4 mg PRN Q6HRS PRN IV NAUSEA/VOMITING; Start 03/15/17 at 16:30 Atorvastatin Calcium (Lipitor) 20 mg HS PO Last administered on 03/16/17 20:33 ; Start 03/15/17 at 21:00 Magnesium Hydroxide (Milk Of Magnesia) 2,400 mg QHS PO Last administered on 03/16 20:33; Start 03/15/17 at 21:00 Amiodarone HCl (Cordarone) 100 mg DAILY PO Last administered on 03/16/17 11:46 ; Start 03/16/17 at 11:00; Stop 03/17/17 at 08:41; Status DC Levothyroxine Sodium (Synthroid) 75 mcg DAILYAC PO ; Start 03/17/17 at 07:30; Stop 03/17/17 at 07:30; Status DC Pantoprazole Sodium (Protonix) 40 mg DAILYAC PO Last administered on 03/17/17 08:39; Start 03/16/17 at 11:30 Potassium Chloride (Klor-Con) 40 meq 1X ONCE PO Last administered on 03/16/17 11:45; Start 03/16/17 at 10:30; Stop 03/16/17 at 10:31; Status DC Levothyroxine Sodium (Synthroid) 75 mcg DAILYAC PO Last administered on 08:39; Start 03/16/17 at 10:30 Amiodarone HCl (Cordarone) 100 mg DAILY PO Last administered on 03/17/17 09:00 ; Start 03/17/17 at 09:00 Cyanocobalamin (Vitamin B-12) 1,000 mcg DAILY16 IM ; Start 03/17/17 at 16:00 Enoxaparin Sodium (Lovenox 60mg Syringe) 60 mg Q12HR SQ Last administered on t 11:32; Start 03/17/17 at 11:00 Warfarin Sodium (Coumadin) 10 mg 1X ONCE PO ; Start 03/17/17 at 16:00; Stop 03/17 at 16:01 Active Scripts Active Reported Levothyroxine Sodium 75 Mcg Tablet 75 Mcg PO DAILYAC Milk Of Magnesia (Magnesium Hydroxide) 2,400 Mg/10 Ml Oral.susp 2,400 Mg PO QHS Atorvastatin Calcium 20 Mg Tablet 1 Mg PO HS Isosorbide Mononitrate Er (Isosorbide Mononitrate) 60 Mg Tab.er.24h 1 Mg PO HS Amiodarone Hcl 200 Mg Tablet 0.5 Tab PO DAILY Pantoprazole Sodium 40 Mg Tablet.dr 1 Tab PO DAILY LAST DOSE GIVEN: DATE: 2014 TIME: 9:00 AM NEXT DOSE DUE: DATE: 2014 TIME: 9:00 AM Aspir 81 (Aspirin) 81 Mg Tablet.dr 1 Tab PO DAILY LAST DOSE GIVEN: DATE: 2014 TIME: 9:00 AM NEXT DOSE DUE: DATE: 2014 TIME: 9:00 AM Clopidogrel (Clopidogrel Bisulfate) 75 Mg Tablet 1 Tab PO QHS LAST DOSE GIVEN: DATE: 2014 TIME: 9:00 PM NEXT DOSE DUE: DATE: 2014 TIME: 9:00 PM Vitals/I & O Vital Sign - Last 24 Hours 03/16/17 03/16/17 03/16/17 03/16/17 11:46 11:52 12:00 12:50 Temp 98.0 98.0 98.0 98.0 98.0 98.0 Pulse 63 60 60 60 Resp 19 18 18 B/P (MAP) 112/57 128/54 152/60 (90) 152/60 Pulse Ox 99 O2 Delivery Room Air 03/16/17 03/16/17 03/16/17 03/16/17 12:55 13:09 15:05 19:55 Temp 98.0 98.0 98.1 96.8 98.0 98.0 98.1 96.8 Pulse 60 61 60 72 Resp 18 19 18 16 B/P (MAP) 148/60 143/65 143/65 152/57 (88) Pulse Ox 91 O2 Delivery Room Air 03/16/17 03/16/17 03/17/17 03/17/17 20:00 23:00 00:06 03:00 Temp 97.9 97.5 97.9 97.5 Pulse 60 60 Resp 16 16 B/P (MAP) 122/55 (77) 118/43 (68) Pulse Ox 95 96 O2 Delivery Room Air Room Air Room Air Room Air 03/17/17 03/17/17 03/17/17 03/17/17 07:30 08:00 09:00 11:00 Temp 97.7 97.9 97.7 97.9 Pulse 64 64 63 Resp 16 16 B/P (MAP) 127/59 (81) 127/59 175/65 (101) Pulse Ox 97 99 O2 Delivery Room Air Room Air Room Air Intake and Output 03/16/17 03/16/17 03/17/17 14:59 22:59 06:59 Intake Total 695 ml 350 ml 0 ml Balance 695 ml 350 ml 0 ml SONIA RASHEED III DO March 17, 2017 11:46
[2017-03-17 12:23] LABS: INR 1.1 (0.8-1.1); PROTHROMBIN TIME PATIENT 13.8 SEC (11.7-14.0)
[2017-03-17] MEDS ORDERED: WARFARIN 10 MG TABLET. PO ONE (16:00)
--- NOTE | 2017-03-17 16:11 | PDOC ---
PROGRESS NOTES Assessment Assessment IMPRESSION: CVA syndrome, s/p TPA on 03/15. Dyspnea. Confusion. GI bleeding after TPA. Anemia CAD AFib HTN Hx of TIA Hypothyroidism RECOMMENDATIONS/PLAN: Antiplatelet agent was on held due to GI bleeding. Treat medical diseases. Continue Lipitor HS. Continue GI treatment. OT/PT. Discussed with her daughter at bedside on 03/17. SUBJECTIVE: Stating doing fine. OBJECTIVE: No focalized motor deficits. Past Medical History Cardiovascular: CAD, HTN CENTRAL NERVOUS SYSTEM: CVA, TIA, Other (conversion reaction) Hepatobiliary: Other (elevated transaminases last year, resolving) Musculoskeletal: low back pain, Osteoarthritis ENT: Other (glaucoma) Endocrine: Hypothyroidism Past Surgical History Pacemaker (and defibrillator), Appendectomy, CABG, Total knee replacement (right ), Tonsillectomy, Hysterectomy, Other (removal of temporal lobe tumor, coronary stent, lobectomy, colonic polyps, sacroplasty) Family History No pertinent hx Social History , lives alone, no alcohol or tobacco PAST MEDICAL AND SURGICAL HISTORY: Please see H&P ALLERGY: Reviewed. MEDICATIONS: Refer to [facility] REVIEW OF SYSTEMS: Constitutional: No malnutrition, weight loss, cachexia. Head: No traumatic brain or head injury. Skin: No edema, or rash. Ear: No infection, tinnitus. Eyes: No vision loss, or diplopia. Nose: No bleeding or purulent discharges. Hearing: No hearing decrease. Neck: No injury. Breast: No history of cancer, masses, or discharges. Cardiac: CAD, AFib, Pacemaker Placement, HTN, HLD Pulmonary: No COPD. GI: GI bleeding this time. Urinary/genital: UTI. Endocrine: Hypothyroidism Skeletomuscular: No muscular atrophy, deformity. Neurological: see HP. Psychiatric: Denies drug use/abuse. Otherwise, not [id number] review of systems. PHYSICAL EXAMINATION: General appearance in subacute distress. HEENT: Normocephalic and nontraumatic. Eyes, nose, ears, and throat are unremarkable. Hearing decrease. Neck is supple. No lymphadenopathy. No bruits are heard over the carotid artery. No Crepitus. Cardiovascular: S1, S2, regular rate and rhythm. Pulmonary: Clear to auscultation bilaterally. Abdomen: Bowel sounds are positive. Extremities: No rash, lesions, or edema. No restriction of range of motion NEUROLOGICAL EXAMINATION: Awake. Oriented to time, place and person. PERRL. EOMI. CN: no focal findings. Muscle tone: within normal. Muscle strength: 5- DTR: 2 Plantar reflex: Flexor response bilaterally Gait: not examined in bed. Sensory exam: no abnormal findings. No cerebellar signs elicited. F-T-N test fine. Objective Objective Vital Signs Date Time Temp Pulse Resp B/P (MAP) Pulse Ox O2 Delivery O2 Flow Rate FiO2 03/17/17 15:00 96.8 63 16 150/63 (92) 97 Room Air 96.8 Intake and Output 03/17/17 07:00 Intake Total 1045 ml Balance 1045 ml Intake Oral 0 ml Blood Product IV Normal Saline Flush 1045 ml # Voids 2 # Bowel Movements 1 Vitals Signs Vitals VS - Last 72 Hours, by Label Date Time Temp Pulse Resp B/P (MAP) Pulse Ox O2 Delivery O2 Flow Rate FiO2 03/17/17 15:00 96.8 63 16 150/63 (92) 97 Room Air 96.8 03/17/17 11:00 97.9 63 16 175/65 (101) 99 Room Air 97.9 03/17/17 09:00 64 127/59 03/17/17 08:00 Room Air 03/17/17 07:30 97.7 64 16 127/59 (81) 97 Room Air 97.7 03/17/17 03:00 97.5 60 16 118/43 (68) 96 Room Air 97.5 03/17/17 00:06 97.9 60 16 122/55 (77) 95 Room Air 97.9 03/16/17 23:00 Room Air 03/16/17 20:00 Room Air 03/16/17 19:55 96.8 72 16 152/57 (88) 91 Room Air 96.8 03/16/17 15:05 98.1 60 18 143/65 98.1 03/16/17 13:09 98.0 61 19 143/65 98.0 03/16/17 12:55 98.0 60 18 148/60 98.0 03/16/17 12:50 98.0 60 18 152/60 98.0 03/16/17 12:00 98.0 60 18 152/60 (90) 99 Room Air 98.0 03/16/17 11:52 98.0 60 19 128/54 98.0 03/16/17 11:46 63 112/57 03/16/17 11:38 98.0 63 19 112/57 98.0 03/16/17 09:00 64 23 153/78 (103) 100 Room Air 03/16/17 08:00 Room Air Laboratory Laboratory Laboratory Tests Test 03/17/17 04:30 03/17/17 11:50 White Blood Count 6.2 x10^3/uL (4.0-11.0) Red Blood Count 3.14 x10^6/uL (3.50-5.40) Hemoglobin 9.5 g/dL (12.0-15.5) Hematocrit 27.3 % (36.0-47.0) Mean Corpuscular Volume 87 fL (79-100) Mean Corpuscular Hemoglobin 30 pg (25-35) Mean Corpuscular Hemoglobin Concent 35 g/dL (31-37) Red Cell Distribution Width 21.3 % (11.5-14.5) Platelet Count 169 x10^3/uL (140-400) Neutrophils (%) (Auto) 60 % (31-73) Lymphocytes (%) (Auto) 33 % (24-48) Monocytes (%) (Auto) 5 % (0-9) Eosinophils (%) (Auto) 2 % (0-3) Basophils (%) (Auto) 1 % (0-3) Neutrophils # (Auto) 3.7 x10^3uL (1.8-7.7) Lymphocytes # (Auto) 2.1 x10^3/uL (1.0-4.8) Monocytes # (Auto) 0.3 x10^3/uL (0.0-1.1) Eosinophils # (Auto) 0.1 x10^3/uL (0.0-0.7) Basophils # (Auto) 0.0 x10^3/uL (0.0-0.2) Reticulocyte Count (auto) 4.8 % (0.5-2.5) Sodium Level 141 mmol/L (136-145) Potassium Level 4.3 mmol/L (3.5-5.1) Chloride Level 109 mmol/L (98-107) Carbon Dioxide Level 24 mmol/L (21-32) Anion Gap 8 (6-14) Blood Urea Nitrogen 16 mg/dL (7-20) Creatinine 0.8 mg/dL (0.6-1.0) Estimated GFR (Cockcroft-Gault) 68.2 BUN/Creatinine Ratio 20 (6-20) Glucose Level 84 mg/dL (70-99) Calcium Level 8.2 mg/dL (8.5-10.1) Magnesium Level 2.7 mg/dL (1.8-2.4) Total Bilirubin 0.7 mg/dL (0.2-1.0) Aspartate Amino Transf (AST/SGOT) 27 U/L (15-37) Alanine Aminotransferase (ALT/SGPT) 28 U/L (14-59) Alkaline Phosphatase 64 U/L (46-116) Total Protein 5.4 g/dL (6.4-8.2) Albumin 2.9 g/dL (3.4-5.0) Albumin/Globulin Ratio 1.2 (1.0-1.7) Prothrombin Time 13.8 SEC (11.7-14.0) Prothromb Time International Ratio 1.1 (0.8-1.1) Microbiology 03/15/17 Blood Culture - Preliminary, Resulted NO GROWTH AFTER 1 DAY 03/15/17 Urine Culture - Final, Complete 03/15/17 Urine Culture Result 1 (VISHNU) - Final, Complete Medication Medications Current Medications Amiodarone HCl (Cordarone) 100 mg DAILY PO Last administered on 03/17/17 09:00 ; Start 03/17/17 at 09:00 Cyanocobalamin (Vitamin B-12) 1,000 mcg DAILY16 IM ; Start 03/17/17 at 16:00 Enoxaparin Sodium (Lovenox 60mg Syringe) 60 mg Q12HR SQ Last administered on 11:32; Start 03/17/17 at 11:00 Levothyroxine Sodium (Synthroid) 75 mcg DAILYAC PO ; Start 03/17/17 at 07:30; Stop 03/17/17 at 07:30; Status DC Warfarin Sodium (Coumadin) 10 mg 1X ONCE PO ; Start 03/17/17 at 16:00; Stop 03/17 at 16:01 Comment Review of Relevant I have reviewed the following items lionel (where applicable) has been applied. MINDI WODO MD March 17, 2017 16:11
--- NOTE | 2017-03-17 16:28 | PDOC ---
Provider Note Provider Note Onc consult dictated- [id number] Iron def anemia, suspect GI source and chronic in nature with report of melanotic stools and hgb worse on admit from 10/25. CVA s/p TPA Plan: - Venofer IV today/ tomorrow for 1000 mg total - EGD/ colonoscopy at some point in near future - F/u with me in 2 mth. Thank you. KAYLEE CHO DO March 17, 2017 16:28
[2017-03-17] MEDS ORDERED: IRON SUCROSE COMPLEX 500 MG in IV NORMAL SALINE 250ML 250 ML IV ONE (16:30)
[2017-03-17] MEDS: CYANOCOBALAMIN (VITAMIN B-12) 1,000 MCG/ML VIAL IM SCH (17:40)
--- NOTE | 2017-03-17 17:45 | CARD ---
APPROVED REPORT EXAM: Two-dimensional and M-mode echocardiogram with Doppler and color Doppler. Other Information Quality : GoodHR: 77bpm INDICATION CVA/TIA Hypertension/HCVD 2D DIMENSIONS LA [id number] (18-58mL)FS (%) 38.0 % SV69.0 mlLVEF(%)60.0 (>50%) CO5.3 L/min LEFT VENTRICLE The left ventricle is normal size. There is normal left ventricular wall thickness. The left ventricu lar systolic function is normal and the ejection fraction is within normal range. LV EF 60% There is normal LV segmental wall motion. The left ventricular diastolic function and filling is normal for ag e. No left ventricle thrombus noted on this study. There is no ventricular septal defect visualized. There is no left ventricular aneurysm. There is no mass noted in the left ventricle. RIGHT VENTRICLE The right ventricle is normal size. There is normal right ventricular wall thickness. The right ventr icular systolic function is normal. There is a pacemaker lead in the right ventricle. ATRIA The left atrium size is mildly dilated The right atrium size is normal. The interatrial septum is int act with no evidence for an atrial septal defect or patent foramen ovale as noted on 2-D or Doppler i rocael. AORTIC VALVE The aortic valve is normal in structure Doppler and Color Flow revealed moderate aortic regurgitation . There is no significant aortic valvular stenosis. There is no aortic valvular vegetation. MITRAL VALVE The mitral valve is thickened but opens well. There is no evidence of mitral valve prolapse. There is no mitral valve stenosis. Doppler and Color-flow revealed trace to mild mitral regurgitation. TRICUSPID VALVE The tricuspid valve is normal in structure and function. Doppler and Color Flow revealed moderate to severe tricuspid regurgitation. There is no tricuspid valve prolapse or vegetation. There is no tricu spid valve stenosis. PULMONIC VALVE The pulmonary valve is normal in structure Doppler and Color Flow revealed mild pulmonic valvular reg urgitation. There is no pulmonic valvular stenosis. GREAT VESSELS The aortic root is normal in size. The ascending aorta is normal in size. The IVC is normal in size a nd collapses <50% with inspiration. PERICARDIAL EFFUSION There is no pleural effusion. There is no evidence of significant pericardial effusion. Critical Notification Critical Value: No <Conclusion> The left ventricular systolic function is normal and the ejection fraction is within normal range. L V EF 60% No left ventricle thrombus noted on this study. There is a pacemaker lead in the right ventricle. The right ventricle is normal size. The left atrium size is mildly dilated The right atrium size is normal. The interatrial septum is intact with no evidence for an atrial septal defect or patent foramen ovale as noted on 2-D or Doppler imaging. Doppler and Color Flow revealed moderate aortic regurgitation. Doppler and Color-flow revealed trace to mild mitral regurgitation. There is no evidence of significant pericardial effusion. Doppler and Color Flow revealed moderate to severe tricuspid regurgitation. Doppler and Color Flow revealed mild pulmonic valvular regurgitation. No mass or thrombus see in any of the chambers
--- NOTE | 2017-03-17 19:18 | PDOC ---
PROGRESS NOTES Subjective Subjective H and feels much better today. 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 An echocardiogram was done that showed a normal systolic function and some AI and MR but no thrombus was seen in any of the chambers. I agree with the present plan. Comment Review of Relevant I have reviewed the following items lionel (where applicable) has been applied. Labs Laboratory Tests Test 03/16/17 05:00 03/17/17 04:30 03/17/17 11:50 White Blood Count 5.1 x10^3/uL (4.0-11.0) 6.2 x10^3/uL (4.0-11.0) Red Blood Count 1.89 x10^6/uL (3.50-5.40) 3.14 x10^6/uL (3.50-5.40) Hemoglobin 6.2 g/dL (12.0-15.5) 9.5 g/dL (12.0-15.5) Hematocrit 18.6 % (36.0-47.0) 27.3 % (36.0-47.0) Mean Corpuscular Volume 98 fL (79-100) 87 fL (79-100) Mean Corpuscular Hemoglobin 33 pg (25-35) 30 pg (25-35) Mean Corpuscular Hemoglobin Concent 33 g/dL (31-37) 35 g/dL (31-37) Red Cell Distribution Width 16.0 % (11.5-14.5) 21.3 % (11.5-14.5) Platelet Count 155 x10^3/uL (140-400) 169 x10^3/uL (140-400) Neutrophils (%) (Auto) 64 % (31-73) 60 % (31-73) Lymphocytes (%) (Auto) 29 % (24-48) 33 % (24-48) Monocytes (%) (Auto) 5 % (0-9) 5 % (0-9) Eosinophils (%) (Auto) 0 % (0-3) 2 % (0-3) Basophils (%) (Auto) 1 % (0-3) 1 % (0-3) Neutrophils # (Auto) 3.3 x10^3uL (1.8-7.7) 3.7 x10^3uL (1.8-7.7) Lymphocytes # (Auto) 1.5 x10^3/uL (1.0-4.8) 2.1 x10^3/uL (1.0-4.8) Monocytes # (Auto) 0.3 x10^3/uL (0.0-1.1) 0.3 x10^3/uL (0.0-1.1) Eosinophils # (Auto) 0.0 x10^3/uL (0.0-0.7) 0.1 x10^3/uL (0.0-0.7) Basophils # (Auto) 0.0 x10^3/uL (0.0-0.2) 0.0 x10^3/uL (0.0-0.2) Sodium Level 141 mmol/L (136-145) 141 mmol/L (136-145) Potassium Level 3.1 mmol/L (3.5-5.1) 4.3 mmol/L (3.5-5.1) Chloride Level 110 mmol/L (98-107) 109 mmol/L (98-107) Carbon Dioxide Level 22 mmol/L (21-32) 24 mmol/L (21-32) Anion Gap 9 (6-14) 8 (6-14) Blood Urea Nitrogen 18 mg/dL (7-20) 16 mg/dL (7-20) Creatinine 0.7 mg/dL (0.6-1.0) 0.8 mg/dL (0.6-1.0) Estimated GFR (Cockcroft-Gault) 79.5 68.2 Glucose Level 92 mg/dL (70-99) 84 mg/dL (70-99) Calcium Level 8.0 mg/dL (8.5-10.1) 8.2 mg/dL (8.5-10.1) Iron Level 22 ug/dL (50-170) Total Iron Binding Capacity 289 ug/dL (250-450) Iron Saturation 8 % (15-34) Triglycerides Level 122 mg/dL (0-150) Cholesterol Level 113 mg/dL (0-200) LDL Cholesterol, Calculated 49 mg/dL (0-100) VLDL Cholesterol, Calculated 24 mg/dL (0-40) Non-HDL Cholesterol Calculated 73 mg/dL (0-129) HDL Cholesterol 40 mg/dL (40-60) Cholesterol/HDL Ratio 2.8 Vitamin B12 Level 385 pg/mL (247-911) Serum Folate 17.89 ng/ml (3.2-20.0) Reticulocyte Count (auto) 4.8 % (0.5-2.5) BUN/Creatinine Ratio 20 (6-20) Magnesium Level 2.7 mg/dL (1.8-2.4) Total Bilirubin 0.7 mg/dL (0.2-1.0) Aspartate Amino Transf (AST/SGOT) 27 U/L (15-37) Alanine Aminotransferase (ALT/SGPT) 28 U/L (14-59) Alkaline Phosphatase 64 U/L (46-116) Total Protein 5.4 g/dL (6.4-8.2) Albumin 2.9 g/dL (3.4-5.0) Albumin/Globulin Ratio 1.2 (1.0-1.7) Prothrombin Time 13.8 SEC (11.7-14.0) Prothromb Time International Ratio 1.1 (0.8-1.1) Laboratory Tests Test 03/17/17 04:30 03/17/17 11:50 White Blood Count 6.2 x10^3/uL (4.0-11.0) Red Blood Count 3.14 x10^6/uL (3.50-5.40) Hemoglobin 9.5 g/dL (12.0-15.5) Hematocrit 27.3 % (36.0-47.0) Mean Corpuscular Volume 87 fL (79-100) Mean Corpuscular Hemoglobin 30 pg (25-35) Mean Corpuscular Hemoglobin Concent 35 g/dL (31-37) Red Cell Distribution Width 21.3 % (11.5-14.5) Platelet Count 169 x10^3/uL (140-400) Neutrophils (%) (Auto) 60 % (31-73) Lymphocytes (%) (Auto) 33 % (24-48) Monocytes (%) (Auto) 5 % (0-9) Eosinophils (%) (Auto) 2 % (0-3) Basophils (%) (Auto) 1 % (0-3) Neutrophils # (Auto) 3.7 x10^3uL (1.8-7.7) Lymphocytes # (Auto) 2.1 x10^3/uL (1.0-4.8) Monocytes # (Auto) 0.3 x10^3/uL (0.0-1.1) Eosinophils # (Auto) 0.1 x10^3/uL (0.0-0.7) Basophils # (Auto) 0.0 x10^3/uL (0.0-0.2) Reticulocyte Count (auto) 4.8 % (0.5-2.5) Sodium Level 141 mmol/L (136-145) Potassium Level 4.3 mmol/L (3.5-5.1) Chloride Level 109 mmol/L (98-107) Carbon Dioxide Level 24 mmol/L (21-32) Anion Gap 8 (6-14) Blood Urea Nitrogen 16 mg/dL (7-20) Creatinine 0.8 mg/dL (0.6-1.0) Estimated GFR (Cockcroft-Gault) 68.2 BUN/Creatinine Ratio 20 (6-20) Glucose Level 84 mg/dL (70-99) Calcium Level 8.2 mg/dL (8.5-10.1) Magnesium Level 2.7 mg/dL (1.8-2.4) Total Bilirubin 0.7 mg/dL (0.2-1.0) Aspartate Amino Transf (AST/SGOT) 27 U/L (15-37) Alanine Aminotransferase (ALT/SGPT) 28 U/L (14-59) Alkaline Phosphatase 64 U/L (46-116) Total Protein 5.4 g/dL (6.4-8.2) Albumin 2.9 g/dL (3.4-5.0) Albumin/Globulin Ratio 1.2 (1.0-1.7) Prothrombin Time 13.8 SEC (11.7-14.0) Prothromb Time International Ratio 1.1 (0.8-1.1) Microbiology 03/15/17 Blood Culture - Preliminary, Resulted NO GROWTH AFTER 2 DAYS 03/15/17 Urine Culture - Final, Complete 03/15/17 Urine Culture Result 1 (VISHNU) - Final, Complete Medications Current Medications Sodium Chloride 1,000 ml @ 125 mls/hr 1X ONCE IV Last administered on 12:51; Start 03/15/17 at 12:15; Stop 03/15/17 at 20:14; Status DC Alteplase, Recombinant 0 ml @ 0 mls/hr 1X ONCE IV Last administered on 13:08; Start 03/15/17 at 12:45; Stop 03/15/17 at 12:51; Status DC Alteplase, Recombinant 0 ml @ 0 mls/hr Q1H IV Last administered on 03/15/17 13: 14; Start 03/15/17 at 12:45; Stop 03/15/17 at 12:52; Status DC Sodium Chloride 50 ml @ 0 mls/hr 1X ONCE IV Last administered on 03/15/17 14: 11; Start 03/15/17 at 12:45; Stop 03/15/17 at 12:52; Status DC Methylprednisolone Sodium Succinate (Solu-Medrol 125mg Vial) 125 mg 1X ONCE IV ; Start 03/15/17 at 12:45; Stop 03/15/17 at 12:48; Status DC Famotidine (Pepcid) 20 mg 1X ONCE IVP Last administered on 03/15/17 12:50; Start 03/15/17 at 12:45; Stop 03/15/17 at 12:52; Status DC Diphenhydramine HCl (Benadryl) 25 mg 1X ONCE IVP Last administered on 12:50; Start 03/15/17 at 12:45; Stop 03/15/17 at 12:52; Status DC Hydrocortisone Sodium Succinate (Solu-Cortef) 125 mg 1X ONCE IV Last administered on 03/15/17 12:49; Start 03/15/17 at 13:00; Stop 03/15/17 at 13:01; Status DC Methylprednisolone Sodium Succinate (Solu-Medrol 125mg Vial) 125 mg STK-MED ONCE .ROUTE ; Start 03/15/17 at 12:46; Stop 03/15/17 at 12:48; Status DC Iohexol (Omnipaque 350 Mg/ml) 75 ml 1X ONCE IV ; Start 03/15/17 at 13:15; Stop 03/15/17 at 13:16; Status DC Info (Do NOT chart on this entry -- for MONITORING) 1 each PRN DAILY PRN MC SEE COMMENTS; Start 03/15/17 at 13:15; Stop 03/17/17 at 13:14; Status DC Iohexol (Omnipaque 300 Mg/ml) 60 ml 1X ONCE IV Last administered on 03/15/17 14:43; Start 03/15/17 at 14:45; Stop 03/15/17 at 14:46; Status DC Ondansetron HCl (Zofran) 4 mg PRN Q8HRS PRN IV NAUSEA/VOMITING; Start 03/15/17 at 15:00; Stop 03/16/17 at 14:59; Status DC Sodium Chloride 1,000 ml @ 125 mls/hr Q8H IV ; Start 03/15/17 at 15:15; Stop 03/15/17 at 16:39; Status DC Sodium Chloride 1,000 ml @ 70 mls/hr [id number] IV Last administered on 03/16/17 07:18; Start 03/15/17 at 17:00; Stop 03/16/17 at 16:02; Status DC Labetalol HCl (Normodyne) 10 mg PRN Q10MIN PRN IV HYPERTENSION, SEE COMMENTS; Start 03/15/17 at 16:30 Nicardipine HCl 50 mg/Sodium Chloride 270 ml @ 27 mls/hr CONT PRN IV HYPERTENSION, SEE COMMENTS; Start 03/15/17 at 16:30 Acetaminophen (Tylenol) 650 mg PRN Q6HRS PRN PO MILD PAIN / TEMP; Start at 16:30 Acetaminophen (Tylenol) 325 mg PRN Q6HRS PRN KS MILD PAIN / TEMP; Start at 16:30 Ondansetron HCl (Zofran) 4 mg PRN Q6HRS PRN IV NAUSEA/VOMITING; Start 03/15/17 at 16:30 Atorvastatin Calcium (Lipitor) 20 mg HS PO Last administered on 03/16/17 20:33 ; Start 03/15/17 at 21:00 Magnesium Hydroxide (Milk Of Magnesia) 2,400 mg QHS PO Last administered on 03/16 20:33; Start 03/15/17 at 21:00 Amiodarone HCl (Cordarone) 100 mg DAILY PO Last administered on 03/16/17 11:46 ; Start 03/16/17 at 11:00; Stop 03/17/17 at 08:41; Status DC Levothyroxine Sodium (Synthroid) 75 mcg DAILYAC PO ; Start 03/17/17 at 07:30; Stop 03/17/17 at 07:30; Status DC Pantoprazole Sodium (Protonix) 40 mg DAILYAC PO Last administered on 03/17/17 08:39; Start 03/16/17 at 11:30 Potassium Chloride (Klor-Con) 40 meq 1X ONCE PO Last administered on 03/16/17 11:45; Start 03/16/17 at 10:30; Stop 03/16/17 at 10:31; Status DC Levothyroxine Sodium (Synthroid) 75 mcg DAILYAC PO Last administered on 08:39; Start 03/16/17 at 10:30 Amiodarone HCl (Cordarone) 100 mg DAILY PO Last administered on 03/17/17 09:00 ; Start 03/17/17 at 09:00 Cyanocobalamin (Vitamin B-12) 1,000 mcg DAILY16 IM Last administered on 17:40; Start 03/17/17 at 16:00 Enoxaparin Sodium (Lovenox 60mg Syringe) 60 mg Q12HR SQ Last administered on 11:32; Start 03/17/17 at 11:00 Warfarin Sodium (Coumadin) 10 mg 1X ONCE PO Last administered on 03/17/17 17: 39; Start 03/17/17 at 16:00; Stop 03/17/17 at 16:01; Status DC Iron Sucrose 500 mg/Sodium Chloride 275 ml @ 78.571 mls/ hr 1X ONCE IV Last administered on 03/17/17 17:40; Start 03/17/17 at 16:30; Stop 03/17/17 at 19:59 Iron Sucrose 500 mg/Sodium Chloride 275 ml @ 78.571 mls/ hr 1X ONCE IV ; Start 03/18/17 at 12:00; Stop 03/18/17 at 15:29 Lorazepam (Ativan) 0.5 mg PRN Q6HRS PRN IV ANXIETY / AGITATION; Start 03/17/17 at 18:00 Active Scripts Active Reported Levothyroxine Sodium 75 Mcg Tablet 75 Mcg PO DAILYAC Milk Of Magnesia (Magnesium Hydroxide) 2,400 Mg/10 Ml Oral.susp 2,400 Mg PO QHS Atorvastatin Calcium 20 Mg Tablet 1 Mg PO HS Isosorbide Mononitrate Er (Isosorbide Mononitrate) 60 Mg Tab.er.24h 1 Mg PO HS Amiodarone Hcl 200 Mg Tablet 0.5 Tab PO DAILY Pantoprazole Sodium 40 Mg Tablet.dr 1 Tab PO DAILY LAST DOSE GIVEN: DATE: 2014 TIME: 9:00 AM NEXT DOSE DUE: DATE: 2014 TIME: 9:00 AM Aspir 81 (Aspirin) 81 Mg Tablet.dr 1 Tab PO DAILY LAST DOSE GIVEN: DATE: 2014 TIME: 9:00 AM NEXT DOSE DUE: DATE: 2014 TIME: 9:00 AM Clopidogrel (Clopidogrel Bisulfate) 75 Mg Tablet 1 Tab PO QHS LAST DOSE GIVEN: DATE: 2014 TIME: 9:00 PM NEXT DOSE DUE: DATE: 2014 TIME: 9:00 PM Vitals/I & O Vital Sign - Last 24 Hours 03/16/17 03/16/17 03/16/17 03/17/17 19:55 20:00 23:00 00:06 Temp 96.8 97.9 96.8 97.9 Pulse 72 60 Resp 16 16 B/P (MAP) 152/57 (88) 122/55 (77) Pulse Ox 91 95 O2 Delivery Room Air Room Air Room Air Room Air 03/17/17 03/17/17 03/17/17 03/17/17 03:00 07:30 08:00 09:00 Temp 97.5 97.7 97.5 97.7 Pulse 60 64 64 Resp 16 16 B/P (MAP) 118/43 (68) 127/59 (81) 127/59 Pulse Ox 96 97 O2 Delivery Room Air Room Air Room Air 03/17/17 03/17/17 11:00 15:00 Temp 97.9 96.8 97.9 96.8 Pulse 63 63 Resp 16 16 B/P (MAP) 175/65 (101) 150/63 (92) Pulse Ox 99 97 O2 Delivery Room Air Room Air Intake and Output 03/16/17 03/16/17 03/17/17 15:00 23:00 07:00 Intake Total 695 ml 350 ml 0 ml Balance 695 ml 350 ml 0 ml ELVA RAMSEY MD March 17, 2017 19:18
[2017-03-17] MEDS: MAGNESIUM HYDROXIDE 2,400 MG/30 ML ORAL.SUSP. PO SCH (19:39)
[2017-03-17] MEDS: ATORVASTATIN CALCIUM 20 MG TABLET PO SCH (19:40)
[2017-03-18 03:25] VITALS: BP 138/62
--- NOTE | 2017-03-18 03:30 | CONS ---
DATE OF CONSULTATION: 03/17/2017 REFERRING PROVIDER: Dr. Christensen. REASON FOR CONSULTATION: Iron deficiency anemia. HISTORY OF PRESENT ILLNESS: The patient is an 86-year-old female who presented on the with an acute stroke, status post TPA. She states that since mid January, she has been having melanotic stools. She had not been taking iron supplements. Following the TPA, her melena worsened and her hemoglobin dropped to 6.2. She has been transfused 2 units of blood. Her anemia workup did reveal low iron levels. B12, folic acid and TSH were normal. INR is also normal. She states she is still having melanotic stools. It is uncertain if GI is planning to perform endoscopies at this time given the acute nature of her stroke. She does not have any residual deficits from the stroke. PAST MEDICAL HISTORY: Heart disease, stroke, osteoarthritis, low back pain, hypothyroidism, atrial fibrillation, previously on aspirin and Plavix. PAST SURGICAL HISTORY: Pacemaker, appendectomy, CABG, left knee replacement, right knee scope, tonsillectomy, hysterectomy, temporal lobe tumor removed and cholecystectomy. FAMILY HISTORY: Mom had some form of cancer in her neck, uncertain if lymphoma or a head and neck cancer. She had a brother with some form of cancer and a stroke. She had a brother with cancer that was in his bone who and sister is also and an additional brother has some form of cancer. SOCIAL HISTORY: No tobacco, alcohol or drug use. ALLERGIES: CODEINE, IODINE, MEPERIDINE AND MORPHINE. CURRENT MEDICATIONS: Vitamin B12, Lovenox, amiodarone, Protonix, Synthroid, milk of magnesia, Lipitor, Zofran, Tylenol, nicardipine and labetalol. REVIEW OF SYSTEMS: Ten-point review of systems completed and unremarkable with the exception of the melanotic stools. PHYSICAL EXAMINATION: VITAL SIGNS: Temperature 96.8, pulse 63, respiratory rate 16, blood pressure 150/63, 97% O2 on room air. GENERAL: She is alert and oriented, in no distress. HEENT: No scleral icterus. Mucous membranes are moist. CARDIOVASCULAR: Heart is currently in regular rhythm and rate. LUNGS: Clear to auscultation bilaterally. ABDOMEN: Soft, nontender. EXTREMITIES: No edema. NEUROLOGIC: No focal deficits. SKIN: No pallor. PSYCHIATRIC: She does appear very anxious. IMAGING AND LABS: Pertinent CBC findings as above. Gastrointestinal, Neurology and primary team notes also reviewed. ASSESSMENT AND PLAN: The patient is an 86-year-old female with the following medical problems: 1. Iron deficiency anemia, possibly due to gastrointestinal loss, as she reports melanotic stools for the last month. However, per nursing report, the melena has not been witnessed here. She did have an acute drop in her hemoglobin down to 6.2 this admission, status post 2 units of blood and her hemoglobin has risen appropriately. I do believe this is likely chronic in nature, as her hemoglobin was normal in October but was lower already on presented this admission. I am going to replace her with 500 mg of Venofer IV both today and tomorrow. I would recommend at some point in the near future she undergo an EGD and colonoscopy. I discussed this with GI. I did discuss with the patient that it may be pertinent to await further out from her acute stroke for these elective procedures. I am going to have my office set up followup for her in 2 months to repeat her iron studies and hemoglobin to see if she needs additional IV iron. 2. Recent stroke, status post TPA. No residual deficits. Thank you for allowing me to participate in her care. I discussed this with GI physician assistant principal, ELLIOTT Cano, and also her skein winder, Dr. Groves with whom she insisted I clear the IV iron. KAYLEE CHO DO DR: OLENA/yesenia JOB#: [id number] / [id number] MARK
[2017-03-18 05:40] LABS: INR 1.2 (0.8-1.1); PROTHROMBIN TIME PATIENT 14.4 SEC (11.7-14.0)
[2017-03-18 07:00] VITALS: BP 145/71
[2017-03-18] MEDS: LEVOTHYROXINE 75 MCG TABLET PO SCH (07:30)
[2017-03-18] MEDS: PANTOPRAZOLE 40 MG TABLET.DR. PO SCH (07:30)
[2017-03-18] MEDS: AMIODARONE HCL 200 MG TABLET. PO SCH (09:00)
[2017-03-18 11:00] VITALS: BP 147/71
[2017-03-18] MEDS ORDERED: IRON SUCROSE COMPLEX 500 MG in IV NORMAL SALINE 250ML 250 ML IV ONE (12:00)
--- NOTE | 2017-03-18 12:08 | PDOC ---
PROGRESS NOTES Chief Complaint Chief Complaint 1. Acute CVA with expressive aphasia 2. Anemia 3. CAD, s/p CABG w/ pacer for heart block 4. Hypokalemia 5. GERD 6. Hypothyroid History of Present Illness History of Present Illness Ms. Banuelos was lying in bed and eating when I saw her. No acute complaints. Nurse reports pt is scheduled for EGD at 3pm Vitals Vitals Vital Signs Date Time Temp Pulse Resp B/P (MAP) Pulse Ox O2 Delivery O2 Flow Rate FiO2 03/18/17 08:00 Room Air 03/18/17 07:00 96.7 64 18 145/71 (95) 97 96.7 Physical Exam General: Alert, Oriented X3, Cooperative, No acute distress Heart: Regular rate (paced), Normal S1, Normal S2 Lungs: Clear, Other (no wheezing) Abdomen: Normal bowel sounds, Soft Extremities: No clubbing, No edema Skin: No rashes, Other (erythema of R knee) Labs LABS Laboratory Tests Test 03/18/17 04:35 Prothrombin Time 14.4 SEC (11.7-14.0) Prothromb Time International Ratio 1.2 (0.8-1.1) Review of Systems Review of Systems Denies chest pain Denies SOA Assessment and Plan Assessmemt and Plan Problems Medical Problems: (1) Acute CVA (cerebrovascular accident) Status: Acute Assessment: 1. Acute CVA with expressive aphasia 2. Anemia 3. CAD, s/p CABG w/ pacer for heart block 4. Hypokalemia 5. GERD 6. Hypothyroid Plan: -Await EGD results -Consulting Heme/Onc for anemia - IV Venofer -PRN infusions if Hg below 8 -Follow with Cardiology for anticoagulation due to h/o A.Fib with pacemaker -Recheck AM labs - trend Hg -PT/OT as appropriate -Possible discharge tomorrow -Subspecialty input appreciated Problems: Comment Review of Relevant I have reviewed the following items lionel (where applicable) has been applied. Labs Laboratory Tests Test 03/17/17 04:30 03/17/17 11:50 03/18/17 04:35 White Blood Count 6.2 x10^3/uL (4.0-11.0) Red Blood Count 3.14 x10^6/uL (3.50-5.40) Hemoglobin 9.5 g/dL (12.0-15.5) Hematocrit 27.3 % (36.0-47.0) Mean Corpuscular Volume 87 fL (79-100) Mean Corpuscular Hemoglobin 30 pg (25-35) Mean Corpuscular Hemoglobin Concent 35 g/dL (31-37) Red Cell Distribution Width 21.3 % (11.5-14.5) Platelet Count 169 x10^3/uL (140-400) Neutrophils (%) (Auto) 60 % (31-73) Lymphocytes (%) (Auto) 33 % (24-48) Monocytes (%) (Auto) 5 % (0-9) Eosinophils (%) (Auto) 2 % (0-3) Basophils (%) (Auto) 1 % (0-3) Neutrophils # (Auto) 3.7 x10^3uL (1.8-7.7) Lymphocytes # (Auto) 2.1 x10^3/uL (1.0-4.8) Monocytes # (Auto) 0.3 x10^3/uL (0.0-1.1) Eosinophils # (Auto) 0.1 x10^3/uL (0.0-0.7) Basophils # (Auto) 0.0 x10^3/uL (0.0-0.2) Reticulocyte Count (auto) 4.8 % (0.5-2.5) Sodium Level 141 mmol/L (136-145) Potassium Level 4.3 mmol/L (3.5-5.1) Chloride Level 109 mmol/L (98-107) Carbon Dioxide Level 24 mmol/L (21-32) Anion Gap 8 (6-14) Blood Urea Nitrogen 16 mg/dL (7-20) Creatinine 0.8 mg/dL (0.6-1.0) Estimated GFR (Cockcroft-Gault) 68.2 BUN/Creatinine Ratio 20 (6-20) Glucose Level 84 mg/dL (70-99) Calcium Level 8.2 mg/dL (8.5-10.1) Magnesium Level 2.7 mg/dL (1.8-2.4) Total Bilirubin 0.7 mg/dL (0.2-1.0) Aspartate Amino Transf (AST/SGOT) 27 U/L (15-37) Alanine Aminotransferase (ALT/SGPT) 28 U/L (14-59) Alkaline Phosphatase 64 U/L (46-116) Total Protein 5.4 g/dL (6.4-8.2) Albumin 2.9 g/dL (3.4-5.0) Albumin/Globulin Ratio 1.2 (1.0-1.7) Prothrombin Time 13.8 SEC (11.7-14.0) 14.4 SEC (11.7-14.0) Prothromb Time International Ratio 1.1 (0.8-1.1) 1.2 (0.8-1.1) Laboratory Tests Test 03/18/17 04:35 Prothrombin Time 14.4 SEC (11.7-14.0) Prothromb Time International Ratio 1.2 (0.8-1.1) Microbiology 03/15/17 Blood Culture - Preliminary, Resulted NO GROWTH AFTER 2 DAYS 03/15/17 Urine Culture - Final, Complete 03/15/17 Urine Culture Result 1 (VISHNU) - Final, Complete Medications Current Medications Sodium Chloride 1,000 ml @ 125 mls/hr 1X ONCE IV Last administered on 12:51; Start 03/15/17 at 12:15; Stop 03/15/17 at 20:14; Status DC Alteplase, Recombinant 0 ml @ 0 mls/hr 1X ONCE IV Last administered on 13:08; Start 03/15/17 at 12:45; Stop 03/15/17 at 12:51; Status DC Alteplase, Recombinant 0 ml @ 0 mls/hr Q1H IV Last administered on 03/15/17 13: 14; Start 03/15/17 at 12:45; Stop 03/15/17 at 12:52; Status DC Sodium Chloride 50 ml @ 0 mls/hr 1X ONCE IV Last administered on 03/15/17 14: 11; Start 03/15/17 at 12:45; Stop 03/15/17 at 12:52; Status DC Methylprednisolone Sodium Succinate (Solu-Medrol 125mg Vial) 125 mg 1X ONCE IV ; Start 03/15/17 at 12:45; Stop 03/15/17 at 12:48; Status DC Famotidine (Pepcid) 20 mg 1X ONCE IVP Last administered on 03/15/17 12:50; Start 03/15/17 at 12:45; Stop 03/15/17 at 12:52; Status DC Diphenhydramine HCl (Benadryl) 25 mg 1X ONCE IVP Last administered on 12:50; Start 03/15/17 at 12:45; Stop 03/15/17 at 12:52; Status DC Hydrocortisone Sodium Succinate (Solu-Cortef) 125 mg 1X ONCE IV Last administered on 03/15/17 12:49; Start 03/15/17 at 13:00; Stop 03/15/17 at 13:01; Status DC Methylprednisolone Sodium Succinate (Solu-Medrol 125mg Vial) 125 mg STK-MED ONCE .ROUTE ; Start 03/15/17 at 12:46; Stop 03/15/17 at 12:48; Status DC Iohexol (Omnipaque 350 Mg/ml) 75 ml 1X ONCE IV ; Start 03/15/17 at 13:15; Stop 03/15/17 at 13:16; Status DC Info (Do NOT chart on this entry -- for MONITORING) 1 each PRN DAILY PRN MC SEE COMMENTS; Start 03/15/17 at 13:15; Stop 03/17/17 at 13:14; Status DC Iohexol (Omnipaque 300 Mg/ml) 60 ml 1X ONCE IV Last administered on 03/15/17 14:43; Start 03/15/17 at 14:45; Stop 03/15/17 at 14:46; Status DC Ondansetron HCl (Zofran) 4 mg PRN Q8HRS PRN IV NAUSEA/VOMITING; Start 03/15/17 at 15:00; Stop 03/16/17 at 14:59; Status DC Sodium Chloride 1,000 ml @ 125 mls/hr Q8H IV ; Start 03/15/17 at 15:15; Stop 03/15/17 at 16:39; Status DC Sodium Chloride 1,000 ml @ 70 mls/hr [id number] IV Last administered on 03/16/17 07:18; Start 03/15/17 at 17:00; Stop 03/16/17 at 16:02; Status DC Labetalol HCl (Normodyne) 10 mg PRN Q10MIN PRN IV HYPERTENSION, SEE COMMENTS; Start 03/15/17 at 16:30 Nicardipine HCl 50 mg/Sodium Chloride 270 ml @ 27 mls/hr CONT PRN IV HYPERTENSION, SEE COMMENTS; Start 03/15/17 at 16:30 Acetaminophen (Tylenol) 650 mg PRN Q6HRS PRN PO MILD PAIN / TEMP; Start at 16:30 Acetaminophen (Tylenol) 325 mg PRN Q6HRS PRN CO MILD PAIN / TEMP; Start at 16:30 Ondansetron HCl (Zofran) 4 mg PRN Q6HRS PRN IV NAUSEA/VOMITING; Start 03/15/17 at 16:30 Atorvastatin Calcium (Lipitor) 20 mg HS PO Last administered on 03/17/17 19:40 ; Start 03/15/17 at 21:00 Magnesium Hydroxide (Milk Of Magnesia) 2,400 mg QHS PO Last administered on 03/17 19:39; Start 03/15/17 at 21:00 Amiodarone HCl (Cordarone) 100 mg DAILY PO Last administered on 03/16/17 11:46 ; Start 03/16/17 at 11:00; Stop 03/17/17 at 08:41; Status DC Levothyroxine Sodium (Synthroid) 75 mcg DAILYAC PO ; Start 03/17/17 at 07:30; Stop 03/17/17 at 07:30; Status DC Pantoprazole Sodium (Protonix) 40 mg DAILYAC PO Last administered on 03/17/17 08:39; Start 03/16/17 at 11:30 Potassium Chloride (Klor-Con) 40 meq 1X ONCE PO Last administered on 03/16/17 11:45; Start 03/16/17 at 10:30; Stop 03/16/17 at 10:31; Status DC Levothyroxine Sodium (Synthroid) 75 mcg DAILYAC PO Last administered on 08:39; Start 03/16/17 at 10:30 Amiodarone HCl (Cordarone) 100 mg DAILY PO Last administered on 03/17/17 09:00 ; Start 03/17/17 at 09:00 Cyanocobalamin (Vitamin B-12) 1,000 mcg DAILY16 IM Last administered on 17:40; Start 03/17/17 at 16:00 Enoxaparin Sodium (Lovenox 60mg Syringe) 60 mg Q12HR SQ Last administered on 19:40; Start 03/17/17 at 11:00 Warfarin Sodium (Coumadin) 10 mg 1X ONCE PO Last administered on 03/17/17 17: 39; Start 03/17/17 at 16:00; Stop 03/17/17 at 16:01; Status DC Iron Sucrose 500 mg/Sodium Chloride 275 ml @ 78.571 mls/ hr 1X ONCE IV Last administered on 03/17/17 17:40; Start 03/17/17 at 16:30; Stop 03/17/17 at 19:59; Status DC Iron Sucrose 500 mg/Sodium Chloride 275 ml @ 78.571 mls/ hr 1X ONCE IV ; Start 03/18/17 at 12:00; Stop 03/18/17 at 15:29 Lorazepam (Ativan) 0.5 mg PRN Q6HRS PRN IV ANXIETY / AGITATION Last administered on 03/17/17 19:40; Start 03/17/17 at 18:00 Active Scripts Active Reported Levothyroxine Sodium 75 Mcg Tablet 75 Mcg PO DAILYAC Milk Of Magnesia (Magnesium Hydroxide) 2,400 Mg/10 Ml Oral.susp 2,400 Mg PO QHS Atorvastatin Calcium 20 Mg Tablet 1 Mg PO HS Isosorbide Mononitrate Er (Isosorbide Mononitrate) 60 Mg Tab.er.24h 1 Mg PO HS Amiodarone Hcl 200 Mg Tablet 0.5 Tab PO DAILY Pantoprazole Sodium 40 Mg Tablet.dr 1 Tab PO DAILY LAST DOSE GIVEN: DATE: 2014 TIME: 9:00 AM NEXT DOSE DUE: DATE: 2014 TIME: 9:00 AM Aspir 81 (Aspirin) 81 Mg Tablet.dr 1 Tab PO DAILY LAST DOSE GIVEN: DATE: 2014 TIME: 9:00 AM NEXT DOSE DUE: DATE: 2014 TIME: 9:00 AM Clopidogrel (Clopidogrel Bisulfate) 75 Mg Tablet 1 Tab PO QHS LAST DOSE GIVEN: DATE: 2014 TIME: 9:00 PM NEXT DOSE DUE: DATE: 2014 TIME: 9:00 PM Vitals/I & O Vital Sign - Last 24 Hours 03/17/17 03/17/17 03/17/17 03/17/17 15:00 19:25 20:00 23:25 Temp 96.8 97.5 96.8 96.8 97.5 96.8 Pulse 63 66 62 Resp 16 18 18 B/P (MAP) 150/63 (92) 131/68 (89) 151/78 (102) Pulse Ox 97 96 99 O2 Delivery Room Air Room Air Room Air Room Air 03/18/17 03/18/17 03/18/17 03:25 07:00 08:00 Temp 96.6 96.7 96.6 96.7 Pulse 60 64 Resp 18 18 B/P (MAP) 138/62 (87) 145/71 (95) Pulse Ox 97 97 O2 Delivery Room Air Room Air Room Air Intake and Output 03/17/17 03/17/17 03/18/17 15:00 23:00 07:00 Intake Total 300 ml 150 ml Balance 300 ml 150 ml SONIA RASHEED III DO March 18, 2017 12:08
--- NOTE | 2017-03-18 12:36 | PDOC ---
Subjective: Subjective: Onc f/u- RONALDO Pt tolerated Venofer without any difficulty. No new melena EGD planned today No new events Objective: Vital Signs: Vital Signs Date Time Temp Pulse Resp B/P (MAP) Pulse Ox O2 Delivery O2 Flow Rate FiO2 03/18/17 11:00 97.6 60 16 147/71 (96) 95 Room Air 97.6 Physical Exam: Extremities: No edema General: Alert, Oriented X3, Cooperative, No acute distress Lungs: Other (no resp distress) Psych/Mental Status: Other (less anxious) Skin: Other (pallor improved) Labs/Imaging: None new Assessment/Plan A/P: 1. 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 Hgb this admit dropped 3 grams from 10/25. Tolerated venofer well yesterday. 2. Reported h/o melena. EGD planned today. Plan: - Venofer 500 mg IV again today - F/u EGD - F/u with me in clinic in 2 mth to verify iron deficiency resolved - No need for po iron as will have replaced entire deficit IV. Noted plans ot DC tomorrow; ok from my standpoint. KAYLEE CHO DO March 18, 2017 12:36
--- NOTE | 2017-03-18 13:20 | PDOC ---
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 Dyspnea. Confusion. GI bleeding after TPA. Anemia CAD AFib HTN Hx of TIA Hypothyroidism RECOMMENDATIONS/PLAN: Antiplatelet and anticoagulant was on held due to GI bleeding. GI on team. Treat medical diseases. Continue Lipitor HS. Continue GI treatment. OT/PT. Discussed with her daughter at bedside on 03/17. SUBJECTIVE: Stating doing fine. OBJECTIVE: No focalized motor deficits. Past Medical History Cardiovascular: CAD, HTN CENTRAL NERVOUS SYSTEM: CVA, TIA, Other (conversion reaction) Hepatobiliary: Other (elevated transaminases last year, resolving) Musculoskeletal: low back pain, Osteoarthritis ENT: Other (glaucoma) Endocrine: Hypothyroidism Past Surgical History Pacemaker (and defibrillator), Appendectomy, CABG, Total knee replacement (right ), Tonsillectomy, Hysterectomy, Other (removal of temporal lobe tumor, coronary stent, lobectomy, colonic polyps, sacroplasty) Family History No pertinent hx Social History , lives alone, no alcohol or tobacco PAST MEDICAL AND SURGICAL HISTORY: Please see H&P ALLERGY: Reviewed. MEDICATIONS: Refer to MAR REVIEW OF SYSTEMS: Constitutional: No malnutrition, weight loss, cachexia. Head: No traumatic brain or head injury. Skin: No edema, or rash. Ear: No infection, tinnitus. Eyes: No vision loss, or diplopia. Nose: No bleeding or purulent discharges. Hearing: No hearing decrease. Neck: No injury. Breast: No history of cancer, masses, or discharges. Cardiac: CAD, AFib, Pacemaker Placement, HTN, HLD Pulmonary: No COPD. GI: GI bleeding this time. Urinary/genital: UTI. Endocrine: Hypothyroidism Skeletomuscular: No muscular atrophy, deformity. Neurological: see HP. Psychiatric: Denies drug use/abuse. Otherwise, not [id number] review of systems. PHYSICAL EXAMINATION: General appearance in no acute distress. HEENT: Normocephalic and nontraumatic. Eyes, nose, ears, and throat are unremarkable. Hearing decrease. Neck is supple. No lymphadenopathy. No bruits are heard over the carotid artery. No Crepitus. Cardiovascular: S1, S2, regular rate and rhythm. Pulmonary: Clear to auscultation bilaterally. Abdomen: Bowel sounds are positive. Extremities: No rash, lesions, or edema. No restriction of range of motion NEUROLOGICAL EXAMINATION: Awake. Oriented to time, place and person. PERRL. EOMI. CN: no focal findings. Muscle tone: within normal. Muscle strength: 5- DTR: 2 Plantar reflex: Flexor response bilaterally Gait: not examined in bed. Sensory exam: no abnormal findings. No cerebellar signs elicited. F-T-N test fine. Objective Objective Vital Signs Date Time Temp Pulse Resp B/P (MAP) Pulse Ox O2 Delivery O2 Flow Rate FiO2 03/18/17 11:00 97.6 60 16 147/71 (96) 95 Room Air 97.6 Intake and Output 03/18/17 07:00 Intake Total 450 ml Balance 450 ml Intake Oral 450 ml # Voids 3 Vitals Signs Vitals VS - Last 72 Hours, by Label Date Time Temp Pulse Resp B/P (MAP) Pulse Ox O2 Delivery O2 Flow Rate FiO2 03/18/17 11:00 97.6 60 16 147/71 (96) 95 Room Air 97.6 03/18/17 08:00 Room Air 03/18/17 07:00 96.7 64 18 145/71 (95) 97 Room Air 96.7 03/18/17 03:25 96.6 60 18 138/62 (87) 97 Room Air 96.6 03/17/17 23:25 96.8 62 18 151/78 (102) 99 Room Air 96.8 03/17/17 20:00 Room Air 03/17/17 19:25 97.5 66 18 131/68 (89) 96 Room Air 97.5 03/17/17 15:00 96.8 63 16 150/63 (92) 97 Room Air 96.8 03/17/17 11:00 97.9 63 16 175/65 (101) 99 Room Air 97.9 03/17/17 09:00 64 127/59 03/17/17 08:00 Room Air 03/17/17 07:30 97.7 64 16 127/59 (81) 97 Room Air 97.7 Laboratory Laboratory Laboratory Tests Test 03/18/17 04:35 Prothrombin Time 14.4 SEC (11.7-14.0) Prothromb Time International Ratio 1.2 (0.8-1.1) Microbiology 03/15/17 Blood Culture - Preliminary, Resulted NO GROWTH AFTER 2 DAYS 03/15/17 Urine Culture - Final, Complete 03/15/17 Urine Culture Result 1 (VISHNU) - Final, Complete Medication Medications Current Medications Cyanocobalamin (Vitamin B-12) 1,000 mcg DAILY16 IM Last administered on 17:40; Start 03/17/17 at 16:00 Iron Sucrose 500 mg/Sodium Chloride 275 ml @ 78.571 mls/ hr 1X ONCE IV Last administered on 03/17/17 17:40; Start 03/17/17 at 16:30; Stop 03/17/17 at 19:59; Status DC Iron Sucrose 500 mg/Sodium Chloride 275 ml @ 78.571 mls/ hr 1X ONCE IV Last administered on 03/18/17 12:00; Start 03/18/17 at 12:00; Stop 03/18/17 at 15:29 Lorazepam (Ativan) 0.5 mg PRN Q6HRS PRN IV ANXIETY / AGITATION Last administered on 03/17/17 19:40; Start 03/17/17 at 18:00 Warfarin Sodium (Coumadin) 10 mg 1X ONCE PO Last administered on 03/17/17 17: 39; Start 03/17/17 at 16:00; Stop 03/17/17 at 16:01; Status DC Comment Review of Relevant I have reviewed the following items lionel (where applicable) has been applied. MINDI WOOD MD March 18, 2017 13:20
[2017-03-18] MEDS ORDERED: ANTI-COAG MONITOR BY PHARMACY. MC PRN (13:30)
[2017-03-18] MEDS: IV RINGERS,LACTATED 1000ML 1,000 ML IV SCH ×4 (15:29→21:06)
[2017-03-18] MEDS ORDERED: MIDAZOLAM HCL/PF 2 MG/2 ML VIAL. IV PRN (15:30)
[2017-03-18] MEDS ORDERED: fentaNYL PF VIAL 100 MCG/2 ML VIAL IV PRN ×2 (15:30)
[2017-03-18] MEDS ORDERED: LIDOCAINE 1% 1 ML SYRINGE. ID PRN (15:30)
[2017-03-18] MEDS: CYANOCOBALAMIN (VITAMIN B-12) 1,000 MCG/ML VIAL IM SCH (16:00)
[2017-03-18] MEDS ORDERED: PROPOFOL 20 ML IV ONE (16:20)
[2017-03-18] MEDS ORDERED: LIDOCAINE 2% PF Vial for OR 5 ML VIAL. ONE (16:21)
--- NOTE | 2017-03-18 16:41 | PDOC4 ---
Operative Note Operative Note EGD with biopsies Meds propofol per anesthesia Pre-op dx melena/acute blood loss anemia S/p tpa post-op dx non-erosive gastritis 2 small gastric ulcers s/p bx Imp Melena likely Sb and/or colonic in origin Plan serial cbcs/PPI therpay for 2 months o/p colonoscopy if patient willing resume diet DANIELA WYNNE MD March 18, 2017 16:41
--- NOTE | 2017-03-18 19:23 | PDOC ---
PROGRESS NOTES Subjective Subjective Patient has no cardiac complaints. She tolerated the EGD well today. 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 I agree with present plan. May go home tomorrow if it is okay with the other services. We will follow the patient as an outpatient Comment Review of Relevant I have reviewed the following items lionel (where applicable) has been applied. Labs Laboratory Tests Test 03/17/17 04:30 03/17/17 11:50 03/18/17 04:35 White Blood Count 6.2 x10^3/uL (4.0-11.0) Red Blood Count 3.14 x10^6/uL (3.50-5.40) Hemoglobin 9.5 g/dL (12.0-15.5) Hematocrit 27.3 % (36.0-47.0) Mean Corpuscular Volume 87 fL (79-100) Mean Corpuscular Hemoglobin 30 pg (25-35) Mean Corpuscular Hemoglobin Concent 35 g/dL (31-37) Red Cell Distribution Width 21.3 % (11.5-14.5) Platelet Count 169 x10^3/uL (140-400) Neutrophils (%) (Auto) 60 % (31-73) Lymphocytes (%) (Auto) 33 % (24-48) Monocytes (%) (Auto) 5 % (0-9) Eosinophils (%) (Auto) 2 % (0-3) Basophils (%) (Auto) 1 % (0-3) Neutrophils # (Auto) 3.7 x10^3uL (1.8-7.7) Lymphocytes # (Auto) 2.1 x10^3/uL (1.0-4.8) Monocytes # (Auto) 0.3 x10^3/uL (0.0-1.1) Eosinophils # (Auto) 0.1 x10^3/uL (0.0-0.7) Basophils # (Auto) 0.0 x10^3/uL (0.0-0.2) Reticulocyte Count (auto) 4.8 % (0.5-2.5) Sodium Level 141 mmol/L (136-145) Potassium Level 4.3 mmol/L (3.5-5.1) Chloride Level 109 mmol/L (98-107) Carbon Dioxide Level 24 mmol/L (21-32) Anion Gap 8 (6-14) Blood Urea Nitrogen 16 mg/dL (7-20) Creatinine 0.8 mg/dL (0.6-1.0) Estimated GFR (Cockcroft-Gault) 68.2 BUN/Creatinine Ratio 20 (6-20) Glucose Level 84 mg/dL (70-99) Calcium Level 8.2 mg/dL (8.5-10.1) Magnesium Level 2.7 mg/dL (1.8-2.4) Total Bilirubin 0.7 mg/dL (0.2-1.0) Aspartate Amino Transf (AST/SGOT) 27 U/L (15-37) Alanine Aminotransferase (ALT/SGPT) 28 U/L (14-59) Alkaline Phosphatase 64 U/L (46-116) Total Protein 5.4 g/dL (6.4-8.2) Albumin 2.9 g/dL (3.4-5.0) Albumin/Globulin Ratio 1.2 (1.0-1.7) Prothrombin Time 13.8 SEC (11.7-14.0) 14.4 SEC (11.7-14.0) Prothromb Time International Ratio 1.1 (0.8-1.1) 1.2 (0.8-1.1) Laboratory Tests Test 03/18/17 04:35 Prothrombin Time 14.4 SEC (11.7-14.0) Prothromb Time International Ratio 1.2 (0.8-1.1) Microbiology 03/15/17 Blood Culture - Preliminary, Resulted NO GROWTH AFTER 3 DAYS 03/15/17 Urine Culture - Final, Complete 03/15/17 Urine Culture Result 1 (VISHNU) - Final, Complete Medications Current Medications Sodium Chloride 1,000 ml @ 125 mls/hr 1X ONCE IV Last administered on t 12:51; Start 03/15/17 at 12:15; Stop 03/15/17 at 20:14; Status DC Alteplase, Recombinant 0 ml @ 0 mls/hr 1X ONCE IV Last administered on 13:08; Start 03/15/17 at 12:45; Stop 03/15/17 at 12:51; Status DC Alteplase, Recombinant 0 ml @ 0 mls/hr Q1H IV Last administered on 03/15/17 13: 14; Start 03/15/17 at 12:45; Stop 03/15/17 at 12:52; Status DC Sodium Chloride 50 ml @ 0 mls/hr 1X ONCE IV Last administered on 03/15/17 14: 11; Start 03/15/17 at 12:45; Stop 03/15/17 at 12:52; Status DC Methylprednisolone Sodium Succinate (Solu-Medrol 125mg Vial) 125 mg 1X ONCE IV ; Start 03/15/17 at 12:45; Stop 03/15/17 at 12:48; Status DC Famotidine (Pepcid) 20 mg 1X ONCE IVP Last administered on 03/15/17 12:50; Start 03/15/17 at 12:45; Stop 03/15/17 at 12:52; Status DC Diphenhydramine HCl (Benadryl) 25 mg 1X ONCE IVP Last administered on 12:50; Start 03/15/17 at 12:45; Stop 03/15/17 at 12:52; Status DC Hydrocortisone Sodium Succinate (Solu-Cortef) 125 mg 1X ONCE IV Last administered on 03/15/17 12:49; Start 03/15/17 at 13:00; Stop 03/15/17 at 13:01; Status DC Methylprednisolone Sodium Succinate (Solu-Medrol 125mg Vial) 125 mg STK-MED ONCE .ROUTE ; Start 03/15/17 at 12:46; Stop 03/15/17 at 12:48; Status DC Iohexol (Omnipaque 350 Mg/ml) 75 ml 1X ONCE IV ; Start 03/15/17 at 13:15; Stop 03/15/17 at 13:16; Status DC Info (Do NOT chart on this entry -- for MONITORING) 1 each PRN DAILY PRN MC SEE COMMENTS; Start 03/15/17 at 13:15; Stop 03/17/17 at 13:14; Status DC Iohexol (Omnipaque 300 Mg/ml) 60 ml 1X ONCE IV Last administered on 03/15/17 14:43; Start 03/15/17 at 14:45; Stop 03/15/17 at 14:46; Status DC Ondansetron HCl (Zofran) 4 mg PRN Q8HRS PRN IV NAUSEA/VOMITING; Start 03/15/17 at 15:00; Stop 03/16/17 at 14:59; Status DC Sodium Chloride 1,000 ml @ 125 mls/hr Q8H IV ; Start 03/15/17 at 15:15; Stop 03/15/17 at 16:39; Status DC Sodium Chloride 1,000 ml @ 70 mls/hr [id number] IV Last administered on 03/16/17 07:18; Start 03/15/17 at 17:00; Stop 03/16/17 at 16:02; Status DC Labetalol HCl (Normodyne) 10 mg PRN Q10MIN PRN IV HYPERTENSION, SEE COMMENTS; Start 03/15/17 at 16:30 Nicardipine HCl 50 mg/Sodium Chloride 270 ml @ 27 mls/hr CONT PRN IV HYPERTENSION, SEE COMMENTS; Start 03/15/17 at 16:30; Stop 03/18/17 at 13:30; Status DC Acetaminophen (Tylenol) 650 mg PRN Q6HRS PRN PO MILD PAIN / TEMP; Start at 16:30 Acetaminophen (Tylenol) 325 mg PRN Q6HRS PRN [place] MILD PAIN / TEMP; Start at 16:30 Ondansetron HCl (Zofran) 4 mg PRN Q6HRS PRN IV NAUSEA/VOMITING; Start 03/15/17 at 16:30 Atorvastatin Calcium (Lipitor) 20 mg HS PO Last administered on 03/17/17 19:40 ; Start 03/15/17 at 21:00 Magnesium Hydroxide (Milk Of Magnesia) 2,400 mg QHS PO Last administered on 03/17 19:39; Start 03/15/17 at 21:00 Amiodarone HCl (Cordarone) 100 mg DAILY PO Last administered on 03/16/17 11:46 ; Start 03/16/17 at 11:00; Stop 03/17/17 at 08:41; Status DC Levothyroxine Sodium (Synthroid) 75 mcg DAILYAC PO ; Start 03/17/17 at 07:30; Stop 03/17/17 at 07:30; Status DC Pantoprazole Sodium (Protonix) 40 mg DAILYAC PO Last administered on 03/17/17 08:39; Start 03/16/17 at 11:30 Potassium Chloride (Klor-Con) 40 meq 1X ONCE PO Last administered on 03/16/17 11:45; Start 03/16/17 at 10:30; Stop 03/16/17 at 10:31; Status DC Levothyroxine Sodium (Synthroid) 75 mcg DAILYAC PO Last administered on 08:39; Start 03/16/17 at 10:30 Amiodarone HCl (Cordarone) 100 mg DAILY PO Last administered on 03/17/17 09:00 ; Start 03/17/17 at 09:00 Cyanocobalamin (Vitamin B-12) 1,000 mcg DAILY16 IM Last administered on 17:40; Start 03/17/17 at 16:00 Enoxaparin Sodium (Lovenox 60mg Syringe) 60 mg Q12HR SQ Last administered on 09:00; Start 03/17/17 at 11:00 Warfarin Sodium (Coumadin) 10 mg 1X ONCE PO Last administered on 03/17/17 17: 39; Start 03/17/17 at 16:00; Stop 03/17/17 at 16:01; Status DC Iron Sucrose 500 mg/Sodium Chloride 275 ml @ 78.571 mls/ hr 1X ONCE IV Last administered on 03/17/17 17:40; Start 03/17/17 at 16:30; Stop 03/17/17 at 19:59; Status DC Iron Sucrose 500 mg/Sodium Chloride 275 ml @ 78.571 mls/ hr 1X ONCE IV Last administered on 03/18/17 12:00; Start 03/18/17 at 12:00; Stop 03/18/17 at 15:29; Status DC Lorazepam (Ativan) 0.5 mg PRN Q6HRS PRN IV ANXIETY / AGITATION Last administered on 03/17/17 19:40; Start 03/17/17 at 18:00 Info (Anti-Coagulation Monitoring By Pharmacy) 1 each PRN DAILY PRN MC SEE COMMENTS Last administered on 03/18/17 13:31; Start 03/18/17 at 13:30 Midazolam HCl (Versed) 2 mg PRN 1X PRN IV PRIOR TO PROCEDURE; Start 03/18/17 at 15:30; Stop 03/19/17 at 15:29 Fentanyl Citrate (Fentanyl 2ml Vial) 25 mcg PRN Q5MIN PRN IV X 2 DOSES FOR PAIN ; Start 03/18/17 at 15:30; Stop 03/19/17 at 15:29 Fentanyl Citrate (Fentanyl 2ml Vial) 50 mcg PRN Q5MIN PRN IV X 2 DOSES FOR PAIN ; Start 03/18/17 at 15:30; Stop 03/19/17 at 15:29 Ringer's Solution 1,000 ml @ 125 mls/hr Q8H IV Last administered on 03/18/17 15:30; Start 03/18/17 at 15:27; Stop 03/19/17 at 03:26 Lidocaine HCl 2 ml 1X PRN PRN ID IV START; Start 03/18/17 at 15:30; Stop at 15:29 Ringer's Solution 1,000 ml @ 125 mls/hr Q8H IV ; Start 03/18/17 at 15:29; Stop 03/19/17 at 03:28 Propofol 20 ml @ As Directed STK-MED ONCE IV ; Start 03/18/17 at 16:20; Stop 03/18 at 16:21; Status DC Lidocaine HCl (Lidocaine Pf 2% Vial) 5 ml STK-MED ONCE .ROUTE ; Start 03/18/17 at 16:21; Stop 03/18/17 at 16:22; Status DC Active Scripts Active Reported Levothyroxine Sodium 75 Mcg Tablet 75 Mcg PO DAILYAC Milk Of Magnesia (Magnesium Hydroxide) 2,400 Mg/10 Ml Oral.susp 2,400 Mg PO QHS Atorvastatin Calcium 20 Mg Tablet 1 Mg PO HS Isosorbide Mononitrate Er (Isosorbide Mononitrate) 60 Mg Tab.er.24h 1 Mg PO HS Amiodarone Hcl 200 Mg Tablet 0.5 Tab PO DAILY Pantoprazole Sodium 40 Mg Tablet.dr 1 Tab PO DAILY LAST DOSE GIVEN: DATE: 2014 TIME: 9:00 AM NEXT DOSE DUE: DATE: 2014 TIME: 9:00 AM Aspir 81 (Aspirin) 81 Mg Tablet.dr 1 Tab PO DAILY LAST DOSE GIVEN: DATE: 2014 TIME: 9:00 AM NEXT DOSE DUE: DATE: 2014 TIME: 9:00 AM Clopidogrel (Clopidogrel Bisulfate) 75 Mg Tablet 1 Tab PO QHS LAST DOSE GIVEN: DATE: 2014 TIME: 9:00 PM NEXT DOSE DUE: DATE: 2014 TIME: 9:00 PM Vitals/I & O Vital Sign - Last 24 Hours 03/17/17 03/17/17 03/17/17 03/18/17 19:25 20:00 23:25 03:25 Temp 97.5 96.8 96.6 97.5 96.8 96.6 Pulse 66 62 60 Resp 18 18 18 B/P (MAP) 131/68 (89) 151/78 (102) 138/62 (87) Pulse Ox 96 99 97 O2 Delivery Room Air Room Air Room Air Room Air 03/18/17 03/18/17 03/18/17 03/18/17 07:00 08:00 11:00 15:25 Temp 96.7 97.6 96.7 97.6 Pulse 64 60 Resp 18 16 B/P (MAP) 145/71 (95) 147/71 (96) Pulse Ox 97 95 O2 Delivery Room Air Room Air Room Air Room Air O2 Flow Rate 2.0 03/18/17 03/18/17 03/18/17 03/18/17 15:31 16:41 16:46 16:58 Temp 97.9 97.8 97.9 97.8 Pulse 65 64 65 60 Resp 16 16 16 16 B/P (MAP) 153/84 147/72 152/78 Pulse Ox 96 94 96 100 O2 Delivery Nasal Cannula Room Air Room Air O2 Flow Rate 2 4 03/18/17 17:03 Pulse 60 Resp 16 B/P (MAP) 165/75 Pulse Ox 97 O2 Delivery Room Air Intake and Output 03/17/17 03/17/17 03/18/17 15:00 23:00 07:00 Intake Total 300 ml 150 ml Balance 300 ml 150 ml ELVA RAMSEY MD March 18, 2017 19:23
[2017-03-18 19:54] VITALS: BP 151/63
[2017-03-18] MEDS: MAGNESIUM HYDROXIDE 2,400 MG/30 ML ORAL.SUSP. PO SCH (21:02)
[2017-03-18] MEDS: ATORVASTATIN CALCIUM 20 MG TABLET PO SCH (21:02)
[2017-03-18 23:30] VITALS: BP 116/50
[2017-03-19 03:51] VITALS: BP 93/37
[2017-03-19 05:38] LABS: BASO % 1 % (0-3); EOS % 3 % (0-3); HEMOGLOBIN 10.5 g/dL (12.0-15.5); LYMPH # 1.1 x10^3/uL (1.0-4.8); LYMPH % 16 % (24-48); MEAN CORPUSCULAR HEMOGLOBIN 31 pg (25-35); MEAN CORPUSCULAR HGB CONC 35 g/dL (31-37); MEAN CORPUSCULAR VOLUME 88 fL (79-100); MONO % 5 % (0-9); NEUT % 76 % (31-73); PLATELET COUNT 211 x10^3/uL (140-400); RED BLOOD COUNT 3.42 x10^6/uL (3.50-5.40); RED CELL DISTRIBUTION WIDTH 19.9 % (11.5-14.5)
[2017-03-19 05:47] LABS: INR 1.7 (0.8-1.1); PROTHROMBIN TIME PATIENT 19.1 SEC (11.7-14.0)
[2017-03-19 06:03] LABS: CALCIUM 8.5 mg/dL (8.5-10.1); CREATININE 0.7 mg/dL (0.6-1.0); GFR 79.5; POTASSIUM 3.5 mmol/L (3.5-5.1)
[2017-03-19 07:00] VITALS: BP 152/60
[2017-03-19] MEDS: LEVOTHYROXINE 75 MCG TABLET PO SCH (09:05)
[2017-03-19] MEDS: PANTOPRAZOLE 40 MG TABLET.DR. PO SCH (09:06)
[2017-03-19] MEDS: AMIODARONE HCL 200 MG TABLET. PO SCH (09:08)
--- NOTE | 2017-03-19 10:20 | PDOC ---
PROGRESS NOTES Chief Complaint Chief Complaint 1. Acute CVA with expressive aphasia 2. Anemia 3. CAD, s/p CABG w/ pacer for heart block 4. Hypokalemia 5. GERD 6. Hypothyroid History of Present Illness History of Present Illness Ms. Banuelos was lying in bed and eating when I saw her. No acute complaints. States she tolerated the EGD and IV iron and is ready to go home today Vitals Vitals Vital Signs Date Time Temp Pulse Resp B/P (MAP) Pulse Ox O2 Delivery O2 Flow Rate FiO2 03/19/17 09:08 152 60/83 03/19/17 07:00 97.7 18 98 Room Air 97.7 03/18/17 16:46 4 Physical Exam General: Alert, Oriented X3, Cooperative, No acute distress Heart: Regular rate (paced), Normal S1, Normal S2 Lungs: Clear, Other (no wheezing) Abdomen: Normal bowel sounds, Soft Extremities: No edema Skin: Other (pallor improved) Labs LABS Laboratory Tests Test 03/19/17 03:30 White Blood Count 7.0 x10^3/uL (4.0-11.0) Red Blood Count 3.42 x10^6/uL (3.50-5.40) Hemoglobin 10.5 g/dL (12.0-15.5) Hematocrit 30.0 % (36.0-47.0) Mean Corpuscular Volume 88 fL (79-100) Mean Corpuscular Hemoglobin 31 pg (25-35) Mean Corpuscular Hemoglobin Concent 35 g/dL (31-37) Red Cell Distribution Width 19.9 % (11.5-14.5) Platelet Count 211 x10^3/uL (140-400) Neutrophils (%) (Auto) 76 % (31-73) Lymphocytes (%) (Auto) 16 % (24-48) Monocytes (%) (Auto) 5 % (0-9) Eosinophils (%) (Auto) 3 % (0-3) Basophils (%) (Auto) 1 % (0-3) Neutrophils # (Auto) 5.4 x10^3uL (1.8-7.7) Lymphocytes # (Auto) 1.1 x10^3/uL (1.0-4.8) Monocytes # (Auto) 0.3 x10^3/uL (0.0-1.1) Eosinophils # (Auto) 0.2 x10^3/uL (0.0-0.7) Basophils # (Auto) 0.0 x10^3/uL (0.0-0.2) Prothrombin Time 19.1 SEC (11.7-14.0) Prothromb Time International Ratio 1.7 (0.8-1.1) Sodium Level 138 mmol/L (136-145) Potassium Level 3.5 mmol/L (3.5-5.1) Chloride Level 105 mmol/L (98-107) Carbon Dioxide Level 24 mmol/L (21-32) Anion Gap 9 (6-14) Blood Urea Nitrogen 18 mg/dL (7-20) Creatinine 0.7 mg/dL (0.6-1.0) Estimated GFR (Cockcroft-Gault) 79.5 Glucose Level 93 mg/dL (70-99) Calcium Level 8.5 mg/dL (8.5-10.1) Review of Systems Review of Systems General: denies weakness GI: denies N/V/D/C Neuro: denies numbness/tingling or aphasia Assessment and Plan Assessmemt and Plan Problems Medical Problems: (1) Acute CVA (cerebrovascular accident) Status: Acute 1. Acute CVA with expressive aphasia 2. Anemia 3. CAD, s/p CABG w/ pacer for heart block 4. Hypokalemia 5. GERD 6. Hypothyroid Plan: -EGD tolerated- showed gastric ulcers - GI following recommend serial CBCs, PPI x 2 months, outpatient colonoscopy, may resume normal diet -Discharge today -Heme/Onc follow-up in 2 months -Cardiology will follow as outpatient -Subspecialty input appreciated Problems: Comment Review of Relevant I have reviewed the following items lionel (where applicable) has been applied. Labs Laboratory Tests Test 03/17/17 11:50 03/18/17 04:35 03/19/17 03:30 Prothrombin Time 13.8 SEC (11.7-14.0) 14.4 SEC (11.7-14.0) 19.1 SEC (11.7-14.0) Prothromb Time International Ratio 1.1 (0.8-1.1) 1.2 (0.8-1.1) 1.7 (0.8-1.1) White Blood Count 7.0 x10^3/uL (4.0-11.0) Red Blood Count 3.42 x10^6/uL (3.50-5.40) Hemoglobin 10.5 g/dL (12.0-15.5) Hematocrit 30.0 % (36.0-47.0) Mean Corpuscular Volume 88 fL (79-100) Mean Corpuscular Hemoglobin 31 pg (25-35) Mean Corpuscular Hemoglobin Concent 35 g/dL (31-37) Red Cell Distribution Width 19.9 % (11.5-14.5) Platelet Count 211 x10^3/uL (140-400) Neutrophils (%) (Auto) 76 % (31-73) Lymphocytes (%) (Auto) 16 % (24-48) Monocytes (%) (Auto) 5 % (0-9) Eosinophils (%) (Auto) 3 % (0-3) Basophils (%) (Auto) 1 % (0-3) Neutrophils # (Auto) 5.4 x10^3uL (1.8-7.7) Lymphocytes # (Auto) 1.1 x10^3/uL (1.0-4.8) Monocytes # (Auto) 0.3 x10^3/uL (0.0-1.1) Eosinophils # (Auto) 0.2 x10^3/uL (0.0-0.7) Basophils # (Auto) 0.0 x10^3/uL (0.0-0.2) Sodium Level 138 mmol/L (136-145) Potassium Level 3.5 mmol/L (3.5-5.1) Chloride Level 105 mmol/L (98-107) Carbon Dioxide Level 24 mmol/L (21-32) Anion Gap 9 (6-14) Blood Urea Nitrogen 18 mg/dL (7-20) Creatinine 0.7 mg/dL (0.6-1.0) Estimated GFR (Cockcroft-Gault) 79.5 Glucose Level 93 mg/dL (70-99) Calcium Level 8.5 mg/dL (8.5-10.1) Laboratory Tests Test 03/19/17 03:30 White Blood Count 7.0 x10^3/uL (4.0-11.0) Red Blood Count 3.42 x10^6/uL (3.50-5.40) Hemoglobin 10.5 g/dL (12.0-15.5) Hematocrit 30.0 % (36.0-47.0) Mean Corpuscular Volume 88 fL (79-100) Mean Corpuscular Hemoglobin 31 pg (25-35) Mean Corpuscular Hemoglobin Concent 35 g/dL (31-37) Red Cell Distribution Width 19.9 % (11.5-14.5) Platelet Count 211 x10^3/uL (140-400) Neutrophils (%) (Auto) 76 % (31-73) Lymphocytes (%) (Auto) 16 % (24-48) Monocytes (%) (Auto) 5 % (0-9) Eosinophils (%) (Auto) 3 % (0-3) Basophils (%) (Auto) 1 % (0-3) Neutrophils # (Auto) 5.4 x10^3uL (1.8-7.7) Lymphocytes # (Auto) 1.1 x10^3/uL (1.0-4.8) Monocytes # (Auto) 0.3 x10^3/uL (0.0-1.1) Eosinophils # (Auto) 0.2 x10^3/uL (0.0-0.7) Basophils # (Auto) 0.0 x10^3/uL (0.0-0.2) Prothrombin Time 19.1 SEC (11.7-14.0) Prothromb Time International Ratio 1.7 (0.8-1.1) Sodium Level 138 mmol/L (136-145) Potassium Level 3.5 mmol/L (3.5-5.1) Chloride Level 105 mmol/L (98-107) Carbon Dioxide Level 24 mmol/L (21-32) Anion Gap 9 (6-14) Blood Urea Nitrogen 18 mg/dL (7-20) Creatinine 0.7 mg/dL (0.6-1.0) Estimated GFR (Cockcroft-Gault) 79.5 Glucose Level 93 mg/dL (70-99) Calcium Level 8.5 mg/dL (8.5-10.1) Microbiology 03/15/17 Blood Culture - Preliminary, Resulted NO GROWTH AFTER 3 DAYS 03/15/17 Urine Culture - Final, Complete 03/15/17 Urine Culture Result 1 (VISHNU) - Final, Complete Medications Current Medications Sodium Chloride 1,000 ml @ 125 mls/hr 1X ONCE IV Last administered on 12:51; Start 03/15/17 at 12:15; Stop 03/15/17 at 20:14; Status DC Alteplase, Recombinant 0 ml @ 0 mls/hr 1X ONCE IV Last administered on 13:08; Start 03/15/17 at 12:45; Stop 03/15/17 at 12:51; Status DC Alteplase, Recombinant 0 ml @ 0 mls/hr Q1H IV Last administered on 03/15/17 13: 14; Start 03/15/17 at 12:45; Stop 03/15/17 at 12:52; Status DC Sodium Chloride 50 ml @ 0 mls/hr 1X ONCE IV Last administered on 03/15/17 14: 11; Start 03/15/17 at 12:45; Stop 03/15/17 at 12:52; Status DC Methylprednisolone Sodium Succinate (Solu-Medrol 125mg Vial) 125 mg 1X ONCE IV ; Start 03/15/17 at 12:45; Stop 03/15/17 at 12:48; Status DC Famotidine (Pepcid) 20 mg 1X ONCE IVP Last administered on 03/15/17 12:50; Start 03/15/17 at 12:45; Stop 03/15/17 at 12:52; Status DC Diphenhydramine HCl (Benadryl) 25 mg 1X ONCE IVP Last administered on 12:50; Start 03/15/17 at 12:45; Stop 03/15/17 at 12:52; Status DC Hydrocortisone Sodium Succinate (Solu-Cortef) 125 mg 1X ONCE IV Last administered on 03/15/17 12:49; Start 03/15/17 at 13:00; Stop 03/15/17 at 13:01; Status DC Methylprednisolone Sodium Succinate (Solu-Medrol 125mg Vial) 125 mg STK-MED ONCE .ROUTE ; Start 03/15/17 at 12:46; Stop 03/15/17 at 12:48; Status DC Iohexol (Omnipaque 350 Mg/ml) 75 ml 1X ONCE IV ; Start 03/15/17 at 13:15; Stop 03/15/17 at 13:16; Status DC Info (Do NOT chart on this entry -- for MONITORING) 1 each PRN DAILY PRN MC SEE COMMENTS; Start 03/15/17 at 13:15; Stop 03/17/17 at 13:14; Status DC Iohexol (Omnipaque 300 Mg/ml) 60 ml 1X ONCE IV Last administered on 03/15/17 14:43; Start 03/15/17 at 14:45; Stop 03/15/17 at 14:46; Status DC Ondansetron HCl (Zofran) 4 mg PRN Q8HRS PRN IV NAUSEA/VOMITING; Start 03/15/17 at 15:00; Stop 03/16/17 at 14:59; Status DC Sodium Chloride 1,000 ml @ 125 mls/hr Q8H IV ; Start 03/15/17 at 15:15; Stop 03/15/17 at 16:39; Status DC Sodium Chloride 1,000 ml @ 70 mls/hr [id number] IV Last administered on 03/16/17 07:18; Start 03/15/17 at 17:00; Stop 03/16/17 at 16:02; Status DC Labetalol HCl (Normodyne) 10 mg PRN Q10MIN PRN IV HYPERTENSION, SEE COMMENTS; Start 03/15/17 at 16:30 Nicardipine HCl 50 mg/Sodium Chloride 270 ml @ 27 mls/hr CONT PRN IV HYPERTENSION, SEE COMMENTS; Start 03/15/17 at 16:30; Stop 03/18/17 at 13:30; Status DC Acetaminophen (Tylenol) 650 mg PRN Q6HRS PRN PO MILD PAIN / TEMP; Start at 16:30 Acetaminophen (Tylenol) 325 mg PRN Q6HRS PRN [place] MILD PAIN / TEMP; Start at 16:30 Ondansetron HCl (Zofran) 4 mg PRN Q6HRS PRN IV NAUSEA/VOMITING; Start 03/15/17 at 16:30 Atorvastatin Calcium (Lipitor) 20 mg HS PO Last administered on 03/18/17 21:02 ; Start 03/15/17 at 21:00 Magnesium Hydroxide (Milk Of Magnesia) 2,400 mg QHS PO Last administered on 03/18 21:02; Start 03/15/17 at 21:00 Amiodarone HCl (Cordarone) 100 mg DAILY PO Last administered on 03/16/17 11:46 ; Start 03/16/17 at 11:00; Stop 03/17/17 at 08:41; Status DC Levothyroxine Sodium (Synthroid) 75 mcg DAILYAC PO ; Start 03/17/17 at 07:30; Stop 03/17/17 at 07:30; Status DC Pantoprazole Sodium (Protonix) 40 mg DAILYAC PO Last administered on 03/19/17 09:06; Start 03/16/17 at 11:30 Potassium Chloride (Klor-Con) 40 meq 1X ONCE PO Last administered on 03/16/17 11:45; Start 03/16/17 at 10:30; Stop 03/16/17 at 10:31; Status DC Levothyroxine Sodium (Synthroid) 75 mcg DAILYAC PO Last administered on 09:05; Start 03/16/17 at 10:30 Amiodarone HCl (Cordarone) 100 mg DAILY PO Last administered on 03/19/17 09:08 ; Start 03/17/17 at 09:00 Cyanocobalamin (Vitamin B-12) 1,000 mcg DAILY16 IM Last administered on 17:40; Start 03/17/17 at 16:00 Enoxaparin Sodium (Lovenox 60mg Syringe) 60 mg Q12HR SQ Last administered on 09:05; Start 03/17/17 at 11:00 Warfarin Sodium (Coumadin) 10 mg 1X ONCE PO Last administered on 03/17/17 17: 39; Start 03/17/17 at 16:00; Stop 03/17/17 at 16:01; Status DC Iron Sucrose 500 mg/Sodium Chloride 275 ml @ 78.571 mls/ hr 1X ONCE IV Last administered on 03/17/17 17:40; Start 03/17/17 at 16:30; Stop 03/17/17 at 19:59; Status DC Iron Sucrose 500 mg/Sodium Chloride 275 ml @ 78.571 mls/ hr 1X ONCE IV Last administered on 03/18/17 12:00; Start 03/18/17 at 12:00; Stop 03/18/17 at 15:29; Status DC Lorazepam (Ativan) 0.5 mg PRN Q6HRS PRN IV ANXIETY / AGITATION Last administered on 03/17/17 19:40; Start 03/17/17 at 18:00 Info (Anti-Coagulation Monitoring By Pharmacy) 1 each PRN DAILY PRN MC SEE COMMENTS Last administered on 03/18/17 13:31; Start 03/18/17 at 13:30 Midazolam HCl (Versed) 2 mg PRN 1X PRN IV PRIOR TO PROCEDURE; Start 03/18/17 at 15:30; Stop 03/19/17 at 15:29 Fentanyl Citrate (Fentanyl 2ml Vial) 25 mcg PRN Q5MIN PRN IV X 2 DOSES FOR PAIN ; Start 03/18/17 at 15:30; Stop 03/19/17 at 15:29 Fentanyl Citrate (Fentanyl 2ml Vial) 50 mcg PRN Q5MIN PRN IV X 2 DOSES FOR PAIN ; Start 03/18/17 at 15:30; Stop 03/19/17 at 15:29 Ringer's Solution 1,000 ml @ 125 mls/hr Q8H IV Last administered on 03/18/17 15:30; Start 03/18/17 at 15:27; Stop 03/18/17 at 23:36; Status DC Lidocaine HCl 2 ml 1X PRN PRN ID IV START; Start 03/18/17 at 15:30; Stop at 15:29 Ringer's Solution 1,000 ml @ 125 mls/hr Q8H IV ; Start 03/18/17 at 15:29; Stop 03/18/17 at 23:36; Status DC Propofol 20 ml @ As Directed STK-MED ONCE IV ; Start 03/18/17 at 16:20; Stop 03/18 at 16:21; Status DC Lidocaine HCl (Lidocaine Pf 2% Vial) 5 ml STK-MED ONCE .ROUTE ; Start 03/18/17 at 16:21; Stop 03/18/17 at 16:22; Status DC Active Scripts Active Reported Levothyroxine Sodium 75 Mcg Tablet 75 Mcg PO DAILYAC Milk Of Magnesia (Magnesium Hydroxide) 2,400 Mg/10 Ml Oral.susp 2,400 Mg PO QHS Atorvastatin Calcium 20 Mg Tablet 1 Mg PO HS Isosorbide Mononitrate Er (Isosorbide Mononitrate) 60 Mg Tab.er.24h 1 Mg PO HS Amiodarone Hcl 200 Mg Tablet 0.5 Tab PO DAILY Pantoprazole Sodium 40 Mg Tablet.dr 1 Tab PO DAILY LAST DOSE GIVEN: DATE: 2014 TIME: 9:00 AM NEXT DOSE DUE: DATE: 2014 TIME: 9:00 AM Aspir 81 (Aspirin) 81 Mg Tablet.dr 1 Tab PO DAILY LAST DOSE GIVEN: DATE: 2014 TIME: 9:00 AM NEXT DOSE DUE: DATE: 2014 TIME: 9:00 AM Clopidogrel (Clopidogrel Bisulfate) 75 Mg Tablet 1 Tab PO QHS LAST DOSE GIVEN: DATE: 2014 TIME: 9:00 PM NEXT DOSE DUE: DATE: 2014 TIME: 9:00 PM Vitals/I & O Vital Sign - Last 24 Hours 03/18/17 03/18/17 03/18/17 03/18/17 11:00 15:25 15:31 16:41 Temp 97.6 97.9 97.8 97.6 97.9 97.8 Pulse 60 65 64 Resp 16 16 16 B/P (MAP) 147/71 (96) 153/84 Pulse Ox 95 96 94 O2 Delivery Room Air Room Air Nasal Cannula O2 Flow Rate 2.0 2 03/18/17 03/18/17 03/18/17 03/18/17 16:46 16:58 17:03 19:54 Temp 97.8 97.8 Pulse 65 60 60 60 Resp 16 16 16 16 B/P (MAP) 147/72 152/78 165/75 151/63 (92) Pulse Ox 96 100 97 98 O2 Delivery Room Air Room Air Room Air Room Air O2 Flow Rate 4 03/18/17 03/18/17 03/19/17 03/19/17 20:05 23:30 03:51 07:00 Temp 96.6 97.7 97.7 96.6 97.7 97.7 Pulse 60 60 83 Resp 16 16 18 B/P (MAP) 116/50 (72) 93/37 (55) 152/60 (90) Pulse Ox 97 98 98 O2 Delivery Room Air Room Air Room Air Room Air 03/19/17 09:08 Pulse 152 B/P (MAP) 60/83 Intake and Output 5/9/17 5/9/17 5/10/17 14:59 22:59 06:59 Intake Total 550 ml Output Total 300 ml Balance 250 ml SONIA RASHEED III DO March 19, 2017 10:20
[2017-03-19 11:00] VITALS: BP 147/71
--- NOTE | 2017-03-19 13:03 | PDOC ---
Subjective: Subjective: No GI complaints. Objective: Objective: Per RN - DC today. Vital Signs: Vital Signs Date Time Temp Pulse Resp B/P (MAP) Pulse Ox O2 Delivery O2 Flow Rate FiO2 03/19/17 11:00 97.9 60 18 147/71 (96) 99 Room Air 97.9 03/18/17 16:46 4 Labs: Laboratory Tests Test 03/19/17 03:30 White Blood Count 7.0 x10^3/uL Red Blood Count 3.42 x10^6/uL Hemoglobin 10.5 g/dL Hematocrit 30.0 % Mean Corpuscular Volume 88 fL Mean Corpuscular Hemoglobin 31 pg Mean Corpuscular Hemoglobin Concent 35 g/dL Red Cell Distribution Width 19.9 % Platelet Count 211 x10^3/uL Neutrophils (%) (Auto) 76 % Lymphocytes (%) (Auto) 16 % Monocytes (%) (Auto) 5 % Eosinophils (%) (Auto) 3 % Basophils (%) (Auto) 1 % Neutrophils # (Auto) 5.4 x10^3uL Lymphocytes # (Auto) 1.1 x10^3/uL Monocytes # (Auto) 0.3 x10^3/uL Eosinophils # (Auto) 0.2 x10^3/uL Basophils # (Auto) 0.0 x10^3/uL Prothrombin Time 19.1 SEC Prothromb Time International Ratio 1.7 Sodium Level 138 mmol/L Potassium Level 3.5 mmol/L Chloride Level 105 mmol/L Carbon Dioxide Level 24 mmol/L Anion Gap 9 Blood Urea Nitrogen 18 mg/dL Creatinine 0.7 mg/dL Estimated GFR (Cockcroft-Gault) 79.5 Glucose Level 93 mg/dL Calcium Level 8.5 mg/dL Imaging: EGD 03/18/17: non-erosive gastritis, 2 small gastric ulcers s/p bx PE: GEN: NAD, was asleep ABD: S/ND/NT NEURO/PSYCH: A & O 3 A/P: RONALDO, melena, non-bleeding gastric ulcers -CVA s/p TPA -on PPI, B12 -EGD as above -Hgb improved -- DC per primary. Continue PPI, monitor labs, consider outpt colonoscopy, follow-up re: pathology results. SCOTT RICHARDSON March 19, 2017 13:03
[2017-03-19] MEDS ORDERED: WARF2TAB PO (13:44)
--- NOTE | 2017-03-19 16:06 | PDOC ---
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 Dyspnea. Confusion. GI bleeding after TPA. Anemia CAD AFib HTN Hx of TIA Hypothyroidism RECOMMENDATIONS/PLAN: Antiplatelet and anticoagulant was on held due to GI bleeding. Resume date per GI standpoint. Treat medical diseases. Continue Lipitor HS. Continue GI treatment. FU with PCP. FU with Neurology as needed. Discussed with her daughter at bedside on 03/17. 2 HCTs on 03/15 and 03/16 showed no large CVA. SUBJECTIVE: Stating doing fine. OBJECTIVE: No focalized motor deficits. Past Medical History Cardiovascular: CAD, HTN CENTRAL NERVOUS SYSTEM: CVA, TIA, Other (conversion reaction) Hepatobiliary: Other (elevated transaminases last year, resolving) Musculoskeletal: low back pain, Osteoarthritis ENT: Other (glaucoma) Endocrine: Hypothyroidism Past Surgical History Pacemaker (and defibrillator), Appendectomy, CABG, Total knee replacement (right ), Tonsillectomy, Hysterectomy, Other (removal of temporal lobe tumor, coronary stent, lobectomy, colonic polyps, sacroplasty) Family History No pertinent hx Social History , lives alone, no alcohol or tobacco PAST MEDICAL AND SURGICAL HISTORY: Please see H&P ALLERGY: Reviewed. MEDICATIONS: Refer to MAR REVIEW OF SYSTEMS: Constitutional: No malnutrition, weight loss, cachexia. Head: No traumatic brain or head injury. Skin: No edema, or rash. Ear: No infection, tinnitus. Eyes: No vision loss, or diplopia. Nose: No bleeding or purulent discharges. Hearing: No hearing decrease. Neck: No injury. Breast: No history of cancer, masses, or discharges. Cardiac: CAD, AFib, Pacemaker Placement, HTN, HLD Pulmonary: No COPD. GI: GI bleeding this time. Urinary/genital: UTI. Endocrine: Hypothyroidism Skeletomuscular: No muscular atrophy, deformity. Neurological: see HP. Psychiatric: Denies drug use/abuse. Otherwise, not [id number] review of systems. PHYSICAL EXAMINATION: General appearance in no acute distress. HEENT: Normocephalic and nontraumatic. Eyes, nose, ears, and throat are unremarkable. Hearing decrease. Neck is supple. No lymphadenopathy. No bruits are heard over the carotid artery. No Crepitus. Cardiovascular: S1, S2, regular rate and rhythm. Pulmonary: Clear to auscultation bilaterally. Abdomen: Bowel sounds are positive. Extremities: No rash, lesions, or edema. No restriction of range of motion NEUROLOGICAL EXAMINATION: Awake. Oriented to time, place and person. PERRL. EOMI. CN: no focal findings. Muscle tone: within normal. Muscle strength: 5 DTR: 2 Plantar reflex: Flexor response bilaterally Gait: not examined in bed. Sensory exam: no abnormal findings. No cerebellar signs elicited. F-T-N test fine. Objective Objective Vital Signs Date Time Temp Pulse Resp B/P (MAP) Pulse Ox O2 Delivery O2 Flow Rate FiO2 03/19/17 11:00 97.9 60 18 147/71 (96) 99 Room Air 97.9 03/18/17 16:46 4 Intake and Output 03/19/17 07:00 Intake Total 550 ml Output Total 300 ml Balance 250 ml Intake Oral 250 ml IV Total 300 ml Output Urine Total 300 ml # Voids 3 Vitals Signs Vitals VS - Last 72 Hours, by Label Date Time Temp Pulse Resp B/P (MAP) Pulse Ox O2 Delivery O2 Flow Rate FiO2 03/19/17 11:00 97.9 60 18 147/71 (96) 99 Room Air 97.9 03/19/17 09:08 152 60/83 03/19/17 08:00 Room Air 03/19/17 07:00 97.7 83 18 152/60 (90) 98 Room Air 97.7 03/19/17 03:51 97.7 60 16 93/37 (55) 98 Room Air 97.7 03/18/17 23:30 96.6 60 16 116/50 (72) 97 Room Air 96.6 03/18/17 20:05 Room Air 03/18/17 19:54 97.8 60 16 151/63 (92) 98 Room Air 97.8 03/18/17 17:03 60 16 165/75 97 Room Air 03/18/17 16:58 60 16 152/78 100 Room Air 03/18/17 16:46 65 16 147/72 96 Room Air 4 03/18/17 16:41 97.8 64 16 153/84 94 Nasal Cannula 2 97.8 03/18/17 15:31 97.9 65 16 96 97.9 03/18/17 15:25 Room Air 2.0 03/18/17 11:00 97.6 60 16 147/71 (96) 95 Room Air 97.6 03/18/17 08:00 Room Air 03/18/17 07:00 96.7 64 18 145/71 (95) 97 Room Air 96.7 Laboratory Laboratory Laboratory Tests Test 03/19/17 03:30 White Blood Count 7.0 x10^3/uL (4.0-11.0) Red Blood Count 3.42 x10^6/uL (3.50-5.40) Hemoglobin 10.5 g/dL (12.0-15.5) Hematocrit 30.0 % (36.0-47.0) Mean Corpuscular Volume 88 fL (79-100) Mean Corpuscular Hemoglobin 31 pg (25-35) Mean Corpuscular Hemoglobin Concent 35 g/dL (31-37) Red Cell Distribution Width 19.9 % (11.5-14.5) Platelet Count 211 x10^3/uL (140-400) Neutrophils (%) (Auto) 76 % (31-73) Lymphocytes (%) (Auto) 16 % (24-48) Monocytes (%) (Auto) 5 % (0-9) Eosinophils (%) (Auto) 3 % (0-3) Basophils (%) (Auto) 1 % (0-3) Neutrophils # (Auto) 5.4 x10^3uL (1.8-7.7) Lymphocytes # (Auto) 1.1 x10^3/uL (1.0-4.8) Monocytes # (Auto) 0.3 x10^3/uL (0.0-1.1) Eosinophils # (Auto) 0.2 x10^3/uL (0.0-0.7) Basophils # (Auto) 0.0 x10^3/uL (0.0-0.2) Prothrombin Time 19.1 SEC (11.7-14.0) Prothromb Time International Ratio 1.7 (0.8-1.1) Sodium Level 138 mmol/L (136-145) Potassium Level 3.5 mmol/L (3.5-5.1) Chloride Level 105 mmol/L (98-107) Carbon Dioxide Level 24 mmol/L (21-32) Anion Gap 9 (6-14) Blood Urea Nitrogen 18 mg/dL (7-20) Creatinine 0.7 mg/dL (0.6-1.0) Estimated GFR (Cockcroft-Gault) 79.5 Glucose Level 93 mg/dL (70-99) Calcium Level 8.5 mg/dL (8.5-10.1) Microbiology 03/15/17 Blood Culture - Preliminary, Resulted NO GROWTH AFTER 3 DAYS 03/15/17 Urine Culture - Final, Complete 03/15/17 Urine Culture Result 1 (VISHNU) - Final, Complete Medication Medications Current Medications Lidocaine HCl (Lidocaine Pf 2% Vial) 5 ml STK-MED ONCE .ROUTE ; Start 03/18/17 at 16:21; Stop 03/18/17 at 16:22; Status DC Propofol 20 ml @ As Directed STK-MED ONCE IV ; Start 03/18/17 at 16:20; Stop 03/18 at 16:21; Status DC Comment Review of Relevant I have reviewed the following items lionel (where applicable) has been applied. MINDI WOOD MD March 19, 2017 16:06
--- NOTE | 2017-03-21 12:28 | PATHOLOGY ---
PATHOLOGY REPORT * * * * * * * * FINAL DIAGNOSIS: Stomach, "gastric ulcer", biopsy: - Chronic superficial gastritis, mild, with focal superficial erosion. - Intestinal metaplasia present. - No evidence of dysplasia. - No evidence of Helicobacter pylori on immunoperoxidase stain. REPORT ELECTRONICALLY SIGNED BY: Hugh Tomas M.D. DATE/TIME: 03/21/2017 12:27 * * * * * * * * GROSS PATHOLOGY: Received in formalin labeled "Andreina Bennett, gastric ulcer biopsy," are 4 segments of alexander soft tissue measuring 0.6 x 0.6 x 0.3 cm in aggregate dimensions and ranging from 0.4 to 0.6 cm in maximum dimension. The specimen is submitted entirely in cassette A1. (KAH; 03/20/2017) INITIAL CPT CODE(S): A; 45232, 20472 Professional services performed by [facility], [employer] [place] [address]. Technical services performed by [facility], [address] [place] [address], [address] [address]. SPECIMEN(S) RECEIVED: A.Gastric ulcer biopsy CLINICAL HISTORY: Blood in stool PATIENT: ANDREINA BENNETT /AGE: 12 1930 (Age: 86) PATIENT #: [id number] ALT CASE #: SPECIMEN COLLECTION DATE: 03/18/2017 SPECIMEN RECEIVED DATE: 03/19/2017 [facility] - [facility] [place] [address] - PHONE: [phone] * * * END OF REPORT * * *
[2017-03-28] MEDS ORDERED: LORA0.5T96 PO (13:17)
--- NOTE | 2017-03-28 22:40 | DS ---
DATE OF DISCHARGE: 03/19/2017 ADMISSION DIAGNOSES: Stroke and iron deficiency anemia and peptic ulcer disease. DISCHARGE DIAGNOSIS: Resolving stroke. HOSPITAL COURSE: The patient is a pleasant 86-year-old female who presented with a stroke. She also was noted to be anemic. She was admitted. We did physical therapy, occupational therapy, and speech therapy. She also underwent an EGD, which showed tube ulcers. Basically, she did well. We discharged to the [facility]. DISPOSITION: Skilled. ACTIVITY: As tolerated. DIET: Low sodium. MEDICATIONS: Please see the MRAD. TOTAL TIME: 32 minutes. NIAL Isaura RASHEED DO DR: BRIGIDO/yesenia JOB#: [id number] / [id number]
[2017-04-04] MEDS ORDERED: FOLI0.8T21 PO (14:20)
[2017-04-04] MEDS ORDERED: CYAN1TAB19 PO (14:20)
== END 2017-03-19 14:40 | disposition home or self-care (01) | DRG 61 ==
LOC: ER 12:08 → 1 WEST ICU 15:07 → 6 SOUTH 03-16 15:49
PROVIDERS: ADMIT Internal Medicine; ATTEND Internal Medicine
PROC: 3E03317 Introduction of Other Thrombolytic into Peripheral Vein, Percutaneous Approach (ICD-10-PCS; principal; 2017-03-15)
PROC: 30233N1 Transfusion of Nonautologous Red Blood Cells into Peripheral Vein, Percutaneous Approach (ICD-10-PCS; 2017-03-15)
PROC: 0DB68ZX Excision of Stomach, Via Natural or Artificial Opening Endoscopic, Diagnostic (ICD-10-PCS; 2017-03-18)
DX: I63.9 Cerebral infarction, unspecified (principal); G93.49 Other encephalopathy; D62 Acute posthemorrhagic anemia; R47.01 Aphasia; I48.2 Chronic atrial fibrillation; D50.9 Iron deficiency anemia, unspecified; E03.9 Hypothyroidism, unspecified; E78.00 Pure hypercholesterolemia, unspecified; E87.6 Hypokalemia; F44.9 Dissociative and conversion disorder, unspecified; H40.9 Unspecified glaucoma; H91.90 Unspecified hearing loss, unspecified ear; I10 Essential (primary) hypertension; I25.10 Atherosclerotic heart disease of native coronary artery without angina pectoris; K21.9 Gastro-esophageal reflux disease without esophagitis; Z96.653 Presence of artificial knee joint, bilateral; K25.9 Gastric ulcer, unspecified as acute or chronic, without hemorrhage or perforation; Z79.82 Long term (current) use of aspirin; Z79.899 Other long term (current) drug therapy; Z80.9 Family history of malignant neoplasm, unspecified; Z82.3 Family history of stroke; I25.2 Old myocardial infarction; Z82.49 Family history of ischemic heart disease and other diseases of the circulatory system; Z86.010 Personal history of colon polyps; Z90.49 Acquired absence of other specified parts of digestive tract; Z90.710 Acquired absence of both cervix and uterus; Z95.0 Presence of cardiac pacemaker; Z95.1 Presence of aortocoronary bypass graft; Z95.5 Presence of coronary angioplasty implant and graft; Z88.6 Allergy status to analgesic agent; Z88.8 Allergy status to other drugs, medicaments and biological substances
CPT/HCPCS: 36415; 70450; 70496; 70498; 71010; 80047; 80048; 80053; 80061; 81001; 82607; 82746; 83540; 83550; 83735; 85027; 85045; 85610; 85730; 86850; 86900; 86901; 86920; 87040; 87086; 87641; 88305; 88342; 93005; 93306; 93880; 96374; 96375; 99292; J1200; J1650; J1720; J1756; J2060; J2704; J2997; J3420; J7030; J7050; J7120; P9016; Q9967; S0028; 92523; 92610; 99291-25

== ENCOUNTER 2018-08-05 09:58 | Inpatient (IN) | payer MEDICARE, OTHER ==
[~2018-08-05] VITALS: Ht 152.4 cm; Wt 64.0 kg
[2018-08-05] VITALS (8 sets, daily range): BP systolic 109–179; BP diastolic 50–88
[~2018-08-05 09:58] MED LIST changes: -AMIO200T2 PO; +AMIO200T4 PO; +CYAN1TAB19 PO; +FOLI0.8T21 PO; -HYDR-2666 PO; +HYDR-2758 PO; +LORA0.5T96 PO; +WARF2TAB PO
[2018-08-05] MEDS ORDERED: fentaNYL PF VIAL 100 MCG/2 ML VIAL IV ONE (10:15)
[2018-08-05] MEDS ORDERED: ONDANSETRON PF 4 MG/2 ML VIAL. IV ONE (10:15)
--- NOTE | 2018-08-05 10:26 | PHYS DOC ---
Past Medical History Past Medical History: CAD, High Cholesterol, [place], Other Additional Past Medical Histor: CABG, [place] x 3, Pacemaker, THYROID DZ Past Surgical History: Appendectomy, Cholecystectomy, Coronary Bypass Surgery, Hysterectomy, Knee Replacement, Pacemaker, Tonsillectomy, Other Additional Past Surgical Histo: Thyroidectomy, Tumor removal from latter day, cardiac cath with stents Alcohol Use: None Drug Use: None Adult General Chief Complaint Chief Complaint: UPPER EXTREMITY PAIN HPI HPI Patient is a 87 year old female brought in by ambulance with arm pain. She says it is sharp severe she feels that her neck on the side of her head she woke up with it yesterday she was fine it is hard to move her left arm she thinks her or maybe week as well. She has had multiple prior stroke she denies chest pain no shortness of breath she feels like it is a little numb in her left hand as well. Her leg is fine her face is fine. No relief with time worse with movement Review of Systems Review of Systems Constitutional: Denies fever or chills [] Eyes: Denies change in visual acuity, redness, or eye pain [] HENT: Denies nasal congestion or sore throat [] Respiratory: Denies cough or shortness of breath [] Cardiovascular: No additional information not addressed in HPI [] GI: Denies abdominal pain, nausea, vomiting, bloody stools or diarrhea [] : Denies dysuria or hematuria [] Integument: Denies rash or skin lesions [] All other systems were reviewed and found to be within normal limits, except as documented in this note. Current Medications Current Medications Current Medications Medications (Trade) Dose Ordered Sig/Charlotte Start Time Stop Time Status Last Admin Dose Admin Fentanyl Citrate (Fentanyl 2ml Vial) 50 mcg 1X ONCE 08/05/18 11:15 08/05/18 11:16 DC 08/05/18 11:23 50 MCG Ondansetron HCl (Zofran Odt) 4 mg 1X ONCE 08/05/18 11:15 08/05/18 11:16 DC 08/05/18 11:22 4 MG Ondansetron HCl (Zofran) 4 mg 1X ONCE 08/05/18 10:15 08/05/18 10:16 DC Allergies Allergies Allergies Coded Allergies Type Severity Reaction Last Updated Verified iodine Allergy Intermediate 03/31/17 Yes codeine Adverse Reaction Intermediate N/V 03/31/17 Yes meperidine Adverse Reaction Intermediate N/V 03/31/17 Yes morphine Adverse Reaction Intermediate N/V 03/31/17 Yes Physical Exam Physical Exam Constitutional: Well developed, moderate painful distress HENT: Normocephalic, atraumatic, bilateral external ears normal, oropharynx moist, no oral exudates, nose normal. [] Eyes: PERRLA, EOMI, conjunctiva normal, no discharge. [] Neck: Normal range of motion, no tenderness, supple, no stridor. [] Cardiovascular:Heart rate regular rhythm, no murmur [] Lungs & Thorax: Bilateral breath sounds clear to auscultation [] Abdomen: Bowel sounds normal, soft, no tenderness, no masses, no pulsatile masses. [] Skin: Warm, dry, no erythema, no rash. [] Back: No tenderness, no CVA tenderness. [] Extremities: Patient has severe tenderness to palpation at the left trapezius as well as left shoulder area no obvious deformity was seen patient denied any trauma. 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 Strength and sensation of the left lower extremity are intact. nihss 1a loc 1b ak month and age 1c blink eyes and squeeze hands 2 eom 3 vf 4 facial palsy 5 left arm motor drift 2 5b right arm motor drift 6a left leg motor drift 6b right leg motor drift 7 limb ataxia 8 sensation 1 9 language 10 dysarthria 11 extinction/inattention Total 3 Psychologic: Affect normal, judgement normal, mood normal. [] Current Patient Data Vital Signs Vital Signs Date Time Temp Pulse Resp B/P (MAP) Pulse Ox O2 Delivery O2 Flow Rate FiO2 08/05/18 11:58 62 17 206/96 (132) 99 Room Air 08/05/18 09:58 97.7 97.7 Lab Values Laboratory Tests Test 08/05/18 11:05 White Blood Count 8.7 x10^3/uL (4.0-11.0) Red Blood Count 4.48 x10^6/uL (3.50-5.40) Hemoglobin 14.6 g/dL (12.0-15.5) Hematocrit 41.9 % (36.0-47.0) Mean Corpuscular Volume 94 fL (79-100) Mean Corpuscular Hemoglobin 33 pg (25-35) Mean Corpuscular Hemoglobin Concent 35 g/dL (31-37) Red Cell Distribution Width 14.7 % (11.5-14.5) H Platelet Count 184 x10^3/uL (140-400) Neutrophils (%) (Auto) 69 % (31-73) Lymphocytes (%) (Auto) 25 % (24-48) Monocytes (%) (Auto) 5 % (0-9) Eosinophils (%) (Auto) 0 % (0-3) Basophils (%) (Auto) 0 % (0-3) Neutrophils # (Auto) 6.0 x10^3uL (1.8-7.7) Lymphocytes # (Auto) 2.2 x10^3/uL (1.0-4.8) Monocytes # (Auto) 0.4 x10^3/uL (0.0-1.1) Eosinophils # (Auto) 0.0 x10^3/uL (0.0-0.7) Basophils # (Auto) 0.0 x10^3/uL (0.0-0.2) Prothrombin Time 63.7 SEC (11.7-14.0) H Prothrombin Time INR 7.6 (0.8-1.1) *H Sodium Level 137 mmol/L (136-145) Potassium Level 4.4 mmol/L (3.5-5.1) Chloride Level 101 mmol/L (98-107) Carbon Dioxide Level 26 mmol/L (21-32) Anion Gap 10 (6-14) Blood Urea Nitrogen 15 mg/dL (7-20) Creatinine 1.0 mg/dL (0.6-1.0) Estimated GFR (Cockcroft-Gault) 52.6 BUN/Creatinine Ratio 15 (6-20) Glucose Level 107 mg/dL (70-99) H Calcium Level 9.5 mg/dL (8.5-10.1) Total Bilirubin 1.1 mg/dL (0.2-1.0) H Aspartate Amino Transferase (AST) 28 U/L (15-37) Alanine Aminotransferase (ALT) 47 U/L (14-59) Alkaline Phosphatase 91 U/L (46-116) Troponin I Quantitative < 0.017 ng/mL (0.000-0.055) Total Protein 7.1 g/dL (6.4-8.2) Albumin 4.0 g/dL (3.4-5.0) Albumin/Globulin Ratio 1.3 (1.0-1.7) Laboratory Tests 08/05/18 11:05 Laboratory Tests 08/05/18 11:05 EKG EKG []EKG shows A. fib rate of 63 nonspecific changes lateral no obvious STEMI was identified. Interpreted by me at time of encounter there is a poor baseline Radiology/Procedures Radiology/Procedures [] Course & Med Decision Making Course & Med Decision Making Pertinent Labs and Imaging studies reviewed. (See chart for details) []87-year-old female history of a CABG pacemaker A. fib on Coumadin prior strokes presenting with severe left neck and arm pain. I suspect probably radiculopathy however stroke is a possibility given the weakness on examination which may be peripheral in nature but appears to be present. Given the severity of the patient's pain she likely will require admission for further treatment and observation. Occult head CT was negative for bleed. Patient cannot get IV contrast Final plan: Patient is a very difficult stick leading to delay in care in the emergency room. I eventually did an ultrasound guided deep brachial line in the right brachial area. 20-gauge was placed good flow. Patient tolerated well Noted the head CT was negative INR 7.5 patient was given vitamin K. Differential still would include a CVA although I think that is somewhat less likely due to the level of pain and think is probably peripheral nerve compression leading to this pain. Patient has no symptoms in the legs were the right arm cervical cord compression is extremely unlikely. I Discussed with Dr. Guardado plan to admit for rule out CVA and management of the supratherapeutic INR he recommended a unit of FFP which I ordered. I also order an MRI of the brain and C-spine and then at 12:40 PM I was contacted by the crime scene evidence technician who needs to confirm the compliance of the pacemaker with the MRI so it will be delayed. I feel this is okay I have very low suspicion for acute cord compression at this time. Dragon Disclaimer Dragon Disclaimer This electronic medical record was generated, in whole or in part, using a voice recognition dictation system. Departure Departure Impression: Primary Impression: Weakness Additional Impression: Supratherapeutic INR Admitting Physician: Quinn Bocanegra Condition: STABLE Referrals: JOCY MASON MD (PCP) Problem Qualifiers DARLING TERAN MD Aug 05, 2018 10:26
--- NOTE | 2018-08-05 11:03 | EKG ---
[facility] [address] [place] [address] Test Date: 2018-08-05 Test Time: 10:17:26 Pat Name: ANDREINA BENNETT Department: Room: Gender: F Print Inspector: : 1930 Requested By: DARLING TERAN Order Number: [id number] Reading MD: David Monroe Measurements Intervals [place] Rate: 63 P: [place]: QRS: -43 QRSD: 90 T: 56 QT: 436 QTc: 449 Interpretive Statements SINUS RHYTHM ABNORMAL LEFT AXIS DEVIATION QRS(T) CONTOUR ABNORMALITY CONSIDER ANTEROSEPTAL MYOCARDIAL DAMAGE T ABNORMALITY IN HIGH LATERAL LEADS INFERIOR LEADS ABNORMAL ECG Electronically Signed On 08-10-2018 11:45:58 CDT by David Monroe
--- NOTE | 2018-08-05 11:03 | RAD ---
CT head without intravenous contrast History: Left arm weakness and pain. Comparison: CT head March 16, 2017. Technique: Axial images are obtained of the head from the skull base through the vertex without IV contrast. Exposure: One or more of the following individualized dose reduction techniques were utilized for this examination: 1. Automated exposure control 2. Adjustment of the mA and/or kV according to patient size 3. Use of iterative reconstruction technique Findings: The ventricles are appropriate in size, shape, and location for the patient's age. No obvious intracranial mass, mass-effect, midline shift, hemorrhage or obvious acute infarction is identified. Basilar cisterns are patent. Bone windows demonstrate no acute calvarial abnormality. The visualized paranasal sinuses appear clear. Impression: No acute intracranial process. Please note that CT can be relatively insensitive to acute ischemic infarction for up to 24 hours after symptom onset. Electronically signed by: Lavon Pollard MD (08/05/2018 11:00 AM) [id number]
[2018-08-05] MEDS ORDERED: ONDANSETRON ODT 4 MG TAB.RAPDIS. PO ONE (11:15)
[2018-08-05] MEDS ORDERED: fentaNYL PF VIAL 100 MCG/2 ML VIAL IM ONE (11:15)
[2018-08-05 11:19] LABS: BASO % 0 % (0-3); EOS % 0 % (0-3); HEMATOCRIT 41.9 % (36.0-47.0); HEMOGLOBIN 14.6 g/dL (12.0-15.5); LYMPH # 2.2 x10^3/uL (1.0-4.8); LYMPH % 25 % (24-48); MEAN CORPUSCULAR HEMOGLOBIN 33 pg (25-35); MEAN CORPUSCULAR HGB CONC 35 g/dL (31-37); MEAN CORPUSCULAR VOLUME 94 fL (79-100); MONO # 0.4 x10^3/uL (0.0-1.1); MONO % 5 % (0-9); NEUT % 69 % (31-73); PLATELET COUNT 184 x10^3/uL (140-400); RED BLOOD COUNT 4.48 x10^6/uL (3.50-5.40); RED CELL DISTRIBUTION WIDTH 14.7 % (11.5-14.5); WHITE BLOOD COUNT 8.7 x10^3/uL (4.0-11.0)
[2018-08-05 11:28] LABS: PROTHROMBIN TIME PATIENT 63.7 SEC (11.7-14.0)
[2018-08-05 11:39] LABS: CALCIUM 9.5 mg/dL (8.5-10.1); GFR 52.6; POTASSIUM 4.4 mmol/L (3.5-5.1)
[2018-08-05 11:50] LABS: ALBUMIN/GLOBULIN RATIO 1.3 (1.0-1.7); TOTAL BILIRUBIN 1.1 mg/dL (0.2-1.0); TOTAL PROTEIN 7.1 g/dL (6.4-8.2)
[2018-08-05] MEDS ORDERED: WARF1TAB74 PO (12:22)
[2018-08-05] MEDS ORDERED: LATA2.5D3 OP (12:22)
[2018-08-05] MEDS ORDERED: PHYTONADIONE 10 MG/ML ORAL SOLUTION. PO ONE (12:30)
[2018-08-05] MEDS: fentaNYL PF VIAL 100 MCG/2 ML VIAL IV PRN ×2 (14:02→19:18)
--- NOTE | 2018-08-05 14:34 | PDOC1 ---
History and Physical Date of Admission Date of Admission DATE: 08/05/18 TIME: 14:33 Identification/Chief Complaint Chief Complaint he says it is sharp severe she feels that her neck on the side of her head she woke up with it yesterday she was fine it is hard to move her left arm she thinks her or maybe week as well. 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, cardiac cath with stents Alcohol Use: None Drug Use: None FAMILY HX HYPERLIPIDEMIA Cardiovascular: CAD, HTN, Valve insufficiency, Other Pulmonary: No pertinent hx CENTRAL NERVOUS SYSTEM: CVA, TIA, Other GI: Other Hepatobiliary: Other Musculoskeletal: low back pain, Osteoarthritis Endocrine: No pertinent hx, Hypothyroidism Past Surgical History Past Surgical History: Pacemaker, Appendectomy, CABG, Total knee replacement, Tonsillectomy, Hysterectomy, Other Family History Family History: No Significant, Hypertension Social History Smoke: No ALCOHOL: none Drugs: None Current Problem List Problem List Problems Medical Problems: (1) Supratherapeutic INR Status: Acute (2) Weakness Status: Acute Current Medications Current Medications Current Medications Fentanyl Citrate (Fentanyl 2ml Vial) 50 mcg 1X ONCE IV ; Start 08/05/18 at 10: 15; Stop 08/05/18 at 10:16; Status DC Ondansetron HCl (Zofran) 4 mg 1X ONCE IV ; Start 08/05/18 at 10:15; Stop at 10:16; Status DC Fentanyl Citrate (Fentanyl 2ml Vial) 50 mcg 1X ONCE IM Last administered on at 11:23; Start 08/05/18 at 11:15; Stop 08/05/18 at 11:16; Status DC Ondansetron HCl (Zofran Odt) 4 mg 1X ONCE PO Last administered on 08/05/18at 11 :22; Start 08/05/18 at 11:15; Stop 08/05/18 at 11:16; Status DC Fentanyl Citrate (Fentanyl 2ml Vial) 50 mcg PRN Q2HR PRN IV PAIN Last administered on 08/05/18at 14:02; Start 08/05/18 at 12:30; Stop 08/06/18 at 12:29 Phytonadione (Mephyton Oral Soln) 5 mg 1X ONCE PO Last administered on at 13:02; Start 08/05/18 at 12:30; Stop 08/05/18 at 12:31; Status DC Active Scripts Active Elayne-Jemal Tablet (Folic Acid/Vitamin B Comp W-C) 0.8 Mg Tablet 1 Tab PO DAILY 30 Days Reported Latanoprost 2.5 Ml Drops 1 Drop OP HS Coumadin (Warfarin Sodium) 1 Mg Tablet 1 Mg PO DAILY Ativan (Lorazepam) 0.5 Mg Tablet 0.5 Mg PO BID PRN Levothyroxine Sodium 75 Mcg Tablet 75 Mcg PO DAILYAC Milk Of Magnesia (Magnesium Hydroxide) 2,400 Mg/10 Ml Oral.susp 2,400 Mg PO QHS Atorvastatin Calcium 20 Mg Tablet 1 Mg PO HS Isosorbide Mononitrate Er (Isosorbide Mononitrate) 60 Mg Tab.er.24h 1 Mg PO HS Amiodarone Hcl 200 Mg Tablet 0.5 Tab PO DAILY Pantoprazole Sodium 40 Mg Tablet.dr 1 Tab PO DAILY LAST DOSE GIVEN: DATE: 2014 TIME: 9:00 AM NEXT DOSE DUE: DATE: 2014 TIME: 9:00 AM Allergies Allergies: Coded Allergies: iodine (Verified Allergy, Intermediate, 03/31/17) codeine (Verified Adverse Reaction, Intermediate, N/V, 03/31/17) meperidine (Verified Adverse Reaction, Intermediate, N/V, 03/31/17) morphine (Verified Adverse Reaction, Intermediate, N/V, 03/31/17) ROS Review of System Review of Systems Review of Systems Constitutional: Denies fever or chills [] Eyes: Denies change in visual acuity, redness, or eye pain [] HENT: Denies nasal congestion or sore throat [] Respiratory: Denies cough or shortness of breath [] Cardiovascular: No additional information not addressed in HPI [] GI: Denies abdominal pain, nausea, vomiting, bloody stools or diarrhea [] : Denies dysuria or hematuria [] Integument: Denies rash or skin lesions [] 14 PT systems were reviewed and found to be within normal limits, except as documented says it is sharp severe she feels that her neck on the side of her head she woke up with it yesterday she was fine it is hard to move her left arm she thinks her or maybe week as well. She has had multiple prior stroke she denies chest pain no shortness of breath she feels like it is a little numb in her left hand General: YES: Fatigue PSYCHOLOGICAL ROS: YES: Anxiety Eyes: Yes Decreased vision Gastrointestinal: Yes Nausea Musculoskeletal: Yes Joint Stiffness Skin: Yes Dry Skin Physical Exam Physical Exam Physical Exam Physical Exam Constitutional: Well developed, moderate painful distress HENT: Normocephalic, atraumatic, bilateral external ears normal, oropharynx moist, no oral exudates, nose normal. [] Eyes: PERRLA, EOMI, conjunctiva normal, no discharge. [] Neck: Normal range of motion, no tenderness, supple, no stridor. [] Cardiovascular:Heart rate regular rhythm, no murmur [] Lungs & Thorax: Bilateral breath sounds clear to auscultation [] Abdomen: Bowel sounds normal, soft, no tenderness, no masses, no pulsatile masses. [] Skin: Warm, dry, no erythema, no rash. [] Back: No tenderness, no CVA tenderness. [] Extremities: Patient has severe tenderness to palpation at the left trapezius as well as left shoulder area no obvious deformity was seen patient denied any trauma. Neurologic: Alert and oriented X 3, extraocular movements are intact face is symmetric patient is unable to cooperate with strength exam and left upper extremity there is decreased hand multiple wire sawyer on the left he she is unable to lift the arm up off the bed she winces in pain when she attempts to do so. Strength and sensation of the left lower extremity are intact. nihss 1a loc 1b ak month and age 1c blink eyes and squeeze hands 2 eom 3 vf 4 facial palsy 5 left arm motor drift 2 5b right arm motor drift 6a left leg motor drift 6b right leg motor drift 7 limb ataxia 8 sensation 1 9 language 10 dysarthria 11 extinction/inattention Total 3 General: Cooperative Lungs: Clear to auscultation Heart: S1S2 Breasts: Not examined Abdomen: Normal bowel sounds, Soft Neuro: Cranial nerves 3-12 NL Vitals Vitals Vital Signs Date Time Temp Pulse Resp B/P (MAP) Pulse Ox O2 Delivery O2 Flow Rate FiO2 08/05/18 14:02 Room Air 08/05/18 13:00 97.5 60 16 151/55 (87) 99 97.5 Labs Labs Laboratory Tests Test 08/05/18 11:05 White Blood Count 8.7 x10^3/uL (4.0-11.0) Red Blood Count 4.48 x10^6/uL (3.50-5.40) Hemoglobin 14.6 g/dL (12.0-15.5) Hematocrit 41.9 % (36.0-47.0) Mean Corpuscular Volume 94 fL (79-100) Mean Corpuscular Hemoglobin 33 pg (25-35) Mean Corpuscular Hemoglobin Concent 35 g/dL (31-37) Red Cell Distribution Width 14.7 % (11.5-14.5) Platelet Count 184 x10^3/uL (140-400) Neutrophils (%) (Auto) 69 % (31-73) Lymphocytes (%) (Auto) 25 % (24-48) Monocytes (%) (Auto) 5 % (0-9) Eosinophils (%) (Auto) 0 % (0-3) Basophils (%) (Auto) 0 % (0-3) Neutrophils # (Auto) 6.0 x10^3uL (1.8-7.7) Lymphocytes # (Auto) 2.2 x10^3/uL (1.0-4.8) Monocytes # (Auto) 0.4 x10^3/uL (0.0-1.1) Eosinophils # (Auto) 0.0 x10^3/uL (0.0-0.7) Basophils # (Auto) 0.0 x10^3/uL (0.0-0.2) Prothrombin Time 63.7 SEC (11.7-14.0) Prothromb Time International Ratio 7.6 (0.8-1.1) Sodium Level 137 mmol/L (136-145) Potassium Level 4.4 mmol/L (3.5-5.1) Chloride Level 101 mmol/L (98-107) Carbon Dioxide Level 26 mmol/L (21-32) Anion Gap 10 (6-14) Blood Urea Nitrogen 15 mg/dL (7-20) Creatinine 1.0 mg/dL (0.6-1.0) Estimated GFR (Cockcroft-Gault) 52.6 BUN/Creatinine Ratio 15 (6-20) Glucose Level 107 mg/dL (70-99) Calcium Level 9.5 mg/dL (8.5-10.1) Total Bilirubin 1.1 mg/dL (0.2-1.0) Aspartate Amino Transf (AST/SGOT) 28 U/L (15-37) Alanine Aminotransferase (ALT/SGPT) 47 U/L (14-59) Alkaline Phosphatase 91 U/L (46-116) Troponin I Quantitative < 0.017 ng/mL (0.000-0.055) Total Protein 7.1 g/dL (6.4-8.2) Albumin 4.0 g/dL (3.4-5.0) Albumin/Globulin Ratio 1.3 (1.0-1.7) Laboratory Tests Test 08/05/18 11:05 White Blood Count 8.7 x10^3/uL (4.0-11.0) Red Blood Count 4.48 x10^6/uL (3.50-5.40) Hemoglobin 14.6 g/dL (12.0-15.5) Hematocrit 41.9 % (36.0-47.0) Mean Corpuscular Volume 94 fL (79-100) Mean Corpuscular Hemoglobin 33 pg (25-35) Mean Corpuscular Hemoglobin Concent 35 g/dL (31-37) Red Cell Distribution Width 14.7 % (11.5-14.5) Platelet Count 184 x10^3/uL (140-400) Neutrophils (%) (Auto) 69 % (31-73) Lymphocytes (%) (Auto) 25 % (24-48) Monocytes (%) (Auto) 5 % (0-9) Eosinophils (%) (Auto) 0 % (0-3) Basophils (%) (Auto) 0 % (0-3) Neutrophils # (Auto) 6.0 x10^3uL (1.8-7.7) Lymphocytes # (Auto) 2.2 x10^3/uL (1.0-4.8) Monocytes # (Auto) 0.4 x10^3/uL (0.0-1.1) Eosinophils # (Auto) 0.0 x10^3/uL (0.0-0.7) Basophils # (Auto) 0.0 x10^3/uL (0.0-0.2) Prothrombin Time 63.7 SEC (11.7-14.0) Prothromb Time International Ratio 7.6 (0.8-1.1) Sodium Level 137 mmol/L (136-145) Potassium Level 4.4 mmol/L (3.5-5.1) Chloride Level 101 mmol/L (98-107) Carbon Dioxide Level 26 mmol/L (21-32) Anion Gap 10 (6-14) Blood Urea Nitrogen 15 mg/dL (7-20) Creatinine 1.0 mg/dL (0.6-1.0) Estimated GFR (Cockcroft-Gault) 52.6 BUN/Creatinine Ratio 15 (6-20) Glucose Level 107 mg/dL (70-99) Calcium Level 9.5 mg/dL (8.5-10.1) Total Bilirubin 1.1 mg/dL (0.2-1.0) Aspartate Amino Transf (AST/SGOT) 28 U/L (15-37) Alanine Aminotransferase (ALT/SGPT) 47 U/L (14-59) Alkaline Phosphatase 91 U/L (46-116) Troponin I Quantitative < 0.017 ng/mL (0.000-0.055) Total Protein 7.1 g/dL (6.4-8.2) Albumin 4.0 g/dL (3.4-5.0) Albumin/Globulin Ratio 1.3 (1.0-1.7) Images Images CT head without intravenous contrast History: Left arm weakness and pain. Comparison: CT head March 16, 2017. Technique: Axial images are obtained of the head from the skull base through the vertex without IV contrast. Exposure: One or more of the following individualized dose reduction techniques were utilized for this examination: 1. Automated exposure control 2. Adjustment of the mA and/or kV according to patient size 3. Use of iterative reconstruction technique Findings: The ventricles are appropriate in size, shape, and location for the patient's age. No obvious intracranial mass, mass-effect, midline shift, hemorrhage or obvious acute infarction is identified. Basilar cisterns are patent. Bone windows demonstrate no acute calvarial abnormality. The visualized paranasal sinuses appear clear. Impression: No acute intracranial process. Please note that CT can be relatively insensitive to acute ischemic infarction for up to 24 hours after symptom onset. 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
[2018-08-05] MEDS ORDERED: LORazepam 0.5 MG TABLET PO PRN (15:45)
[2018-08-05] MEDS ORDERED: INFLUENZA VAX SCREEN BY RX. MC ONE (15:45)
--- NOTE | 2018-08-05 16:48 | RAD ---
Examination: CT of the cervical spine without contrast HISTORY: History of degenerative changes, left arm pain COMPARISON: 08/09/2016 TECHNIQUE: Axial CT images of the cervical spine were performed without contrast. Coronal and sagittal reformats are performed Exposure: One or more of the following individualized dose reduction techniques were utilized for this examination: 1. Automated exposure control 2. Adjustment of the mA and/or kV according to patient size 3. Use of iterative reconstruction technique FINDINGS: The vertebral body heights are maintained. There is severe intervertebral disc height loss identified at C5-C6, C6-C7 vertebral level. Moderate size anterior osteophyte formation identified at these levels. There is mild intervertebral disc height loss identified at other cervical vertebral levels. The bilateral facets are well aligned. The lateral masses of C1 are aligned with C2 vertebra. The C2 dens appears intact Moderate multilevel facet degenerative changes. IMPRESSION: 1. Severe degenerative changes cervical spine most at C5-C6, C6-C7 vertebral levels. If there is radiculopathy consider follow-up MRI for further evaluation if clinically feasible. Electronically signed by: Han Wu MD (08/05/2018 4:44 PM) [id number]
--- NOTE | 2018-08-05 17:58 | PDOC2 ---
NEUROLOGY CONSULT Date of Admission Date of Admission DATE: 08/05/18 TIME: 17:46 Reason for Consult Reason for Consult: Possible stroke Referring Physician Referring Physician: Dr. Guardado PCP: Dr. Alvarez Source Source: Chart review, Patient History of Present Illness History of Present Illness The patient is an 87-year-old right-handed female who woke up this morning with severe left shoulder pain. It is painful to move the left arm. She has been shunted into the rule out stroke pathway, but she clearly states that the pain is in the left shoulder and it is painful to move the left shoulder. I last saw her in March 2017 when she was taking a shower and noticed numbness on her whole body worse on the left. She had negative CT of the head [address] angiogram. She had a transient ischemic attack in January 2015 with negative workup. I saw her in July 2015 for numbness of the entire body and my impression was of a conversion disorder. She had a stroke in her 20s with 5 days of left-sided weakness. She denies any headache, diplopia, dysphagia, dysarthria, cognitive change. She also has cardiac disease. Past Medical History Cardiovascular: CAD, HTN CENTRAL NERVOUS SYSTEM: CVA, TIA, Other (conversion reaction) Hepatobiliary: Other (elevated transaminases) Musculoskeletal: low back pain, Osteoarthritis ENT: Other (glaucoma) Endocrine: Hypothyroidism Past Surgical History Past Surgical History: Pacemaker (and defibrillator), Appendectomy, CABG, Total knee replacement (right), Tonsillectomy, Hysterectomy, Other (removal of temporal lobe tumor, coronary stent, lobectomy, colonic polyps, sacroplasty) Family History Family History: CVA Social History Social History , lives alone, no alcohol or tobacco Current Medications Current Medications Current Medications Fentanyl Citrate (Fentanyl 2ml Vial) 50 mcg 1X ONCE IV ; Start 08/05/18 at 10: 15; Stop 08/05/18 at 10:16; Status DC Ondansetron HCl (Zofran) 4 mg 1X ONCE IV ; Start 08/05/18 at 10:15; Stop at 10:16; Status DC Fentanyl Citrate (Fentanyl 2ml Vial) 50 mcg 1X ONCE IM Last administered on at 11:23; Start 08/05/18 at 11:15; Stop 08/05/18 at 11:16; Status DC Ondansetron HCl (Zofran Odt) 4 mg 1X ONCE PO Last administered on 08/05/18at 11 :22; Start 08/05/18 at 11:15; Stop 08/05/18 at 11:16; Status DC Fentanyl Citrate (Fentanyl 2ml Vial) 50 mcg PRN Q2HR PRN IV PAIN Last administered on 08/05/18at 14:02; Start 08/05/18 at 12:30; Stop 08/06/18 at 12:29 Phytonadione (Mephyton Oral Soln) 5 mg 1X ONCE PO Last administered on at 13:02; Start 08/05/18 at 12:30; Stop 08/05/18 at 12:31; Status DC Info (FLU VACCINE SCREEN per RX) 1 each 1X ONCE MC ; Start 08/05/18 at 15:45; Stop 08/05/18 at 15:46; Status UNV Amiodarone HCl (Cordarone) 100 mg DAILY PO ; Start 08/06/18 at 09:00 Atorvastatin Calcium (Lipitor) 20 mg HS PO ; Start 08/05/18 at 21:00 Vitamin B Complex/ Vitamin C (Elayne-Jemal) 1 tab DAILY PO ; Start 08/06/18 at 09: 00 Levothyroxine Sodium (Synthroid) 75 mcg DAILY07 PO ; Start 08/06/18 at 07:00 Lorazepam (Ativan) 0.5 mg PRN BID PRN PO ANXIETY / AGITATION; Start 08/05/18 at 15:45 Pantoprazole Sodium (Protonix) 40 mg DAILYAC PO ; Start 08/06/18 at 07:30 Isosorbide Mononitrate (Imdur) 60 mg QHS PO ; Start 08/05/18 at 21:00 Latanoprost (Xalatan) 1 drop QHS OU ; Start 08/05/18 at 21:00 Magnesium Hydroxide (Milk Of Magnesia) 2,400 mg QHS PO ; Start 08/05/18 at 21:00 Influenza Virus Vaccine (Afluria Trivalent [id number] Syringe) 0.5 ml ONCE ONCE VAX IM ; Start 08/05/18 at 17:00; Stop 08/05/18 at 17:01; Status DC Active Scripts Active Elayne-Jemal Tablet (Folic Acid/Vitamin B Comp W-C) 0.8 Mg Tablet 1 Tab PO DAILY 30 Days Reported Latanoprost 2.5 Ml Drops 1 Drop OP HS Coumadin (Warfarin Sodium) 1 Mg Tablet 1 Mg PO DAILY Ativan (Lorazepam) 0.5 Mg Tablet 0.5 Mg PO BID PRN Levothyroxine Sodium 75 Mcg Tablet 75 Mcg PO DAILYAC Milk Of Magnesia (Magnesium Hydroxide) 2,400 Mg/10 Ml Oral.susp 2,400 Mg PO QHS Atorvastatin Calcium 20 Mg Tablet 1 Mg PO HS Isosorbide Mononitrate Er (Isosorbide Mononitrate) 60 Mg Tab.er.24h 1 Mg PO HS Amiodarone Hcl 200 Mg Tablet 0.5 Tab PO DAILY Pantoprazole Sodium 40 Mg Tablet.dr 1 Tab PO DAILY LAST DOSE GIVEN: DATE: 2014 TIME: 9:00 AM NEXT DOSE DUE: DATE: 2014 TIME: 9:00 AM Allergies Allergies: Coded Allergies: iodine (Verified Allergy, Intermediate, 03/31/17) codeine (Verified Adverse Reaction, Intermediate, N/V, 03/31/17) meperidine (Verified Adverse Reaction, Intermediate, N/V, 03/31/17) morphine (Verified Adverse Reaction, Intermediate, N/V, 03/31/17) ROS Review of System Patient denies fevers, chills, weight loss, dyspnea, angina, abdominal pain, change in bowels, or dysuria. 14-point review of systems is negative. Physical Exam Physical Examination General: Well-developed, well-nourished, white female, in no acute distress HEENT: Normocephalic andatraumatic. Temporal arteriespulsatile and nontender. Neck: Supple without bruit, no meningismus Musculoskeletal: Stability:see neurologic. Gait exam:see neurologic. Tone:see neurologic. Strength:see neurologic. Neurological: Mental Status:intact, orientation, memory, attention span/concentration, language, fund of knowledge normal. Cranial Nerves:Pupils equal and reactive to light, extraocular movements areintact, visual hutchinson are full to confrontation. Facial sensation is normal. There is no facial asymmetry. Vestibulo-ocular reflex is intact. Palate elevates and tongue protrudes in midline. All other cranial related problems are negative except as mentioned before.Reflexes:2+ and symmetric with flexor plantar responses. Motor:Severe pain with movement of the left shoulder, splints due to pain, can develop good strength in the distal left upper extremity, otherwise 5/5 with normal tone and bulk. Coordination:Finger-nose finger and [id number] testing are normal allowing for pain in the left arm. Rapid alternating movements and fine finger movements are intact. Gait:She was in too much pain to walk. Sensory:Normal pinprick, vibration, light touch, proprioception. Vitals VITALS Vital Signs Date Time Temp Pulse Resp B/P (MAP) Pulse Ox O2 Delivery O2 Flow Rate FiO2 08/05/18 17:30 97.7 60 16 151/74 97.7 08/05/18 15:00 98 Room Air Labs Labs Laboratory Tests Test 08/05/18 11:05 White Blood Count 8.7 x10^3/uL (4.0-11.0) Red Blood Count 4.48 x10^6/uL (3.50-5.40) Hemoglobin 14.6 g/dL (12.0-15.5) Hematocrit 41.9 % (36.0-47.0) Mean Corpuscular Volume 94 fL (79-100) Mean Corpuscular Hemoglobin 33 pg (25-35) Mean Corpuscular Hemoglobin Concent 35 g/dL (31-37) Red Cell Distribution Width 14.7 % (11.5-14.5) Platelet Count 184 x10^3/uL (140-400) Neutrophils (%) (Auto) 69 % (31-73) Lymphocytes (%) (Auto) 25 % (24-48) Monocytes (%) (Auto) 5 % (0-9) Eosinophils (%) (Auto) 0 % (0-3) Basophils (%) (Auto) 0 % (0-3) Neutrophils # (Auto) 6.0 x10^3uL (1.8-7.7) Lymphocytes # (Auto) 2.2 x10^3/uL (1.0-4.8) Monocytes # (Auto) 0.4 x10^3/uL (0.0-1.1) Eosinophils # (Auto) 0.0 x10^3/uL (0.0-0.7) Basophils # (Auto) 0.0 x10^3/uL (0.0-0.2) Prothrombin Time 63.7 SEC (11.7-14.0) Prothromb Time International Ratio 7.6 (0.8-1.1) Sodium Level 137 mmol/L (136-145) Potassium Level 4.4 mmol/L (3.5-5.1) Chloride Level 101 mmol/L (98-107) Carbon Dioxide Level 26 mmol/L (21-32) Anion Gap 10 (6-14) Blood Urea Nitrogen 15 mg/dL (7-20) Creatinine 1.0 mg/dL (0.6-1.0) Estimated GFR (Cockcroft-Gault) 52.6 BUN/Creatinine Ratio 15 (6-20) Glucose Level 107 mg/dL (70-99) Calcium Level 9.5 mg/dL (8.5-10.1) Total Bilirubin 1.1 mg/dL (0.2-1.0) Aspartate Amino Transf (AST/SGOT) 28 U/L (15-37) Alanine Aminotransferase (ALT/SGPT) 47 U/L (14-59) Alkaline Phosphatase 91 U/L (46-116) Troponin I Quantitative < 0.017 ng/mL (0.000-0.055) Total Protein 7.1 g/dL (6.4-8.2) Albumin 4.0 g/dL (3.4-5.0) Albumin/Globulin Ratio 1.3 (1.0-1.7) Laboratory Tests Test 08/05/18 11:05 White Blood Count 8.7 x10^3/uL (4.0-11.0) Red Blood Count 4.48 x10^6/uL (3.50-5.40) Hemoglobin 14.6 g/dL (12.0-15.5) Hematocrit 41.9 % (36.0-47.0) Mean Corpuscular Volume 94 fL (79-100) Mean Corpuscular Hemoglobin 33 pg (25-35) Mean Corpuscular Hemoglobin Concent 35 g/dL (31-37) Red Cell Distribution Width 14.7 % (11.5-14.5) Platelet Count 184 x10^3/uL (140-400) Neutrophils (%) (Auto) 69 % (31-73) Lymphocytes (%) (Auto) 25 % (24-48) Monocytes (%) (Auto) 5 % (0-9) Eosinophils (%) (Auto) 0 % (0-3) Basophils (%) (Auto) 0 % (0-3) Neutrophils # (Auto) 6.0 x10^3uL (1.8-7.7) Lymphocytes # (Auto) 2.2 x10^3/uL (1.0-4.8) Monocytes # (Auto) 0.4 x10^3/uL (0.0-1.1) Eosinophils # (Auto) 0.0 x10^3/uL (0.0-0.7) Basophils # (Auto) 0.0 x10^3/uL (0.0-0.2) Prothrombin Time 63.7 SEC (11.7-14.0) Prothromb Time International Ratio 7.6 (0.8-1.1) Sodium Level 137 mmol/L (136-145) Potassium Level 4.4 mmol/L (3.5-5.1) Chloride Level 101 mmol/L (98-107) Carbon Dioxide Level 26 mmol/L (21-32) Anion Gap 10 (6-14) Blood Urea Nitrogen 15 mg/dL (7-20) Creatinine 1.0 mg/dL (0.6-1.0) Estimated GFR (Cockcroft-Gault) 52.6 BUN/Creatinine Ratio 15 (6-20) Glucose Level 107 mg/dL (70-99) Calcium Level 9.5 mg/dL (8.5-10.1) Total Bilirubin 1.1 mg/dL (0.2-1.0) Aspartate Amino Transf (AST/SGOT) 28 U/L (15-37) Alanine Aminotransferase (ALT/SGPT) 47 U/L (14-59) Alkaline Phosphatase 91 U/L (46-116) Troponin I Quantitative < 0.017 ng/mL (0.000-0.055) Total Protein 7.1 g/dL (6.4-8.2) Albumin 4.0 g/dL (3.4-5.0) Albumin/Globulin Ratio 1.3 (1.0-1.7) Images Images CT head: The ventricles are appropriate in size, shape, and location for the patient's age. No obvious intracranial mass, mass-effect, midline shift, hemorrhage or obvious acute infarction is identified. Basilar cisterns are patent. Bone windows demonstrate no acute calvarial abnormality. The visualized paranasal sinuses appear clear. Impression: No acute intracranial process. Please note that CT can be relatively insensitive to acute ischemic infarction for up to [address] symptom onset[address] cervical spine: The vertebral body heights are maintained. There is severe intervertebral disc height loss identified at C5-C6, C6-C7 vertebral level. Moderate size anterior osteophyte formation identified at these levels. There is mild intervertebral disc height loss identified at other cervical vertebral levels. The bilateral facets are well aligned. The lateral masses of C1 are aligned with C2 vertebra. The C2 dens appears intact Moderate multilevel facet degenerative changes. IMPRESSION: 1. Severe degenerative changes cervical spine most at C5-C6, C6-C7 vertebral levels. If there is radiculopathy consider follow-up MRI for further evaluation if clinically feasible. Assessment/Plan Assessment/Plan Impression: On my exam she has severe left shoulder pain with painful movement of the left shoulder. This has not been evaluated. She does have severe degenerative changes in the cervical spine most prominant at C5-C6, C6-C7, so I suppose radiculopathy is possible. I find no evidence that she has had a new stroke. History of prior strokes and transient ischemic attacks as well as conversion disorder. Supratherapeutic INR Recommendations: Left shoulder x-ray Orthopedic consult with Dr. Pinto who has seen her in the past Continue current medications including statin Resume warfarin when INR appropriate Rehabilitation modalities after orthoses. Thank you for letting me help with the patient's care. CHARLA HICKEY MD Aug 05, 2018 17:58
[2018-08-05] MEDS ORDERED: oxyCODONE/APAP 5/325 1 TAB TABLET PO PRN (19:30)
[2018-08-05] MEDS ORDERED: BUPIVACAINE MPF 0.25% 10 ML VIAL. IJ ONE (20:00)
[2018-08-05] MEDS ORDERED: methylPREDNISolone ACETATE 40 MG/ML VIAL. INT ART ONE (20:00)
[2018-08-05] MEDS ORDERED: MAGNESIUM HYDROXIDE 2,400 MG/30 ML ORAL.SUSP. PO SCH (21:00)
[2018-08-05] MEDS ORDERED: ISOSORBIDE MONONITRATE ER 30 MG TAB.ER.24H PO SCH (21:00)
[2018-08-05] MEDS ORDERED: ATORVASTATIN CALCIUM 20 MG TABLET PO SCH (21:00)
[2018-08-05] MEDS ORDERED: LATANOPROST 0.005% OPHTH SOLUTION 2.5ML BOTTLE. OU SCH (21:00)
[2018-08-05] MEDS ORDERED: LIDOCAINE (700MG/PATCH) PATCH. TD SCH (21:00)
[2018-08-06] MEDS ORDERED: PHYTONADIONE 10 MG/ML AMPUL. SQ ONE
[2018-08-06 00:07] LABS: PROTHROMBIN TIME PATIENT 26.2 SEC (11.7-14.0)
[2018-08-06 03:00] VITALS: BP 108/59
[2018-08-06 05:15] LABS: BASO % 0 % (0-3); EOS # 0.1 x10^3/uL (0.0-0.7); EOS % 1 % (0-3); HEMATOCRIT 39.2 % (36.0-47.0); HEMOGLOBIN 13.7 g/dL (12.0-15.5); LYMPH # 2.1 x10^3/uL (1.0-4.8); LYMPH % 29 % (24-48); MEAN CORPUSCULAR HEMOGLOBIN 32 pg (25-35); MEAN CORPUSCULAR HGB CONC 35 g/dL (31-37); MEAN CORPUSCULAR VOLUME 93 fL (79-100); MONO # 0.5 x10^3/uL (0.0-1.1); MONO % 7 % (0-9); NEUT # 4.4 x10^3uL (1.8-7.7); NEUT % 63 % (31-73); PLATELET COUNT 188 x10^3/uL (140-400); RED BLOOD COUNT 4.22 x10^6/uL (3.50-5.40); RED CELL DISTRIBUTION WIDTH 14.8 % (11.5-14.5); WHITE BLOOD COUNT 7.1 x10^3/uL (4.0-11.0)
[2018-08-06 06:15] LABS: ALBUMIN 3.6 g/dL (3.4-5.0); ALBUMIN/GLOBULIN RATIO 1.1 (1.0-1.7); CREATININE 0.9 mg/dL (0.6-1.0); GFR 59.4; POTASSIUM 3.7 mmol/L (3.5-5.1); TOTAL BILIRUBIN 1.4 mg/dL (0.2-1.0); TOTAL PROTEIN 6.9 g/dL (6.4-8.2)
--- NOTE | 2018-08-06 06:32 | CONS ---
DATE OF CONSULTATION: 08/05/2018 ATTENDING PHYSICIAN: Dr. Guardado. The patient was seen at the request of Dr. Guardado for rehab evaluation about her left shoulder pain. HISTORY OF PRESENT ILLNESS: This is an 87-year-old female patient who was admitted this afternoon with severe left shoulder pain with radiation up to her neck and head. She woke up with left shoulder pain this morning. The patient with known coronary artery disease, hypercholesterolemia, myocardial infarction, status post coronary artery bypass graft, permanent pacemaker placement, thyroid disease, appendectomy, cholecystectomy, coronary bypass surgery, hysterectomy and left knee replacement done by Dr. 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 The patient had family history also of hypertension. SHE IS KNOWN ALLERGIC TO CODEINE, IODINE, MEPERIDINE, MORPHINE AND THEY MAKE HER SICK IN THE STOMACH. The patient lives with her and she usually gets around and takes care of herself, not using any assistive devices. The patient since admission was noted with hypercoagulable state. She had CT scan of the brain, which failed to reveal any acute abnormality and she had CT scan of the cervical spine, which revealed severe degenerative changes of cervical spine most noted at C5-C6 and C6-C7 vertebral levels. The patient was found with hypercoagulable state and she is getting frozen plasma. The patient had no steps for her to manage at home. PHYSICAL EXAMINATION: Today revealed an elderly female. She is alert, oriented to time, place, person and circumstance and follows commands appropriately. She is protecting her left shoulder and left upper extremity, some tenderness to palpation over left posterior shoulder girdle muscles and left cervical paraspinal muscles, more tenderness to palpation over left shoulder, may be some left shoulder joint effusion. No significant crepitus on range of motion of both shoulders. Again, she is protecting her left upper extremity, more so of left shoulder. The patient had 5/5 grade muscle strength in her lower extremities. Deep tendon reflexes are 2+ and symmetrical and she had a crepitus on range of motion of her right knee joint. She had pain free range of motion of her hip joint. She had some pain on lateral bending of her neck to the left side. Her skin is intact at this time. ASSESSMENT: An elderly female with sprain, left shoulder or associated left shoulder joint effusion in a patient with hypercoagulable state on anticoagulation. Also with radiological evidence of degenerative disk disease of cervical vertebrae, but no clinical evidence of cervical radiculopathy as she had equal perception of touch and pinprick sensation in both upper extremities. 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 RECOMMENDATIONS: To try physical modality to her left shoulder and to consider injecting her left shoulder when her protime and INR are in therapeutic range. Agree with the plan for physical therapy and occupational therapy. Dr. Guardado, I appreciate asking me to participate in the care of this interesting patient. I will be glad to follow her with you as needed for her rehabilitation. LILY GARRISON MD DR: MAGI/yesenia JOB#: [id number] / [id number] JOCY Kinney MD, Dr.
[2018-08-06 07:00] VITALS: BP 98/58
[2018-08-06] MEDS ORDERED: LEVOTHYROXINE 75 MCG TABLET PO SCH (07:00)
[2018-08-06] MEDS ORDERED: PANTOPRAZOLE 40 MG TABLET.DR. PO SCH (07:30)
--- NOTE | 2018-08-06 08:32 | RAD ---
Examination: SHOULDER 2+V LEFT History: WOKE UP YESTERDAY WITH SEVERE LEFT SHOULDER PAIN
NO KNOWN INJURY Comparison/Correlation: 08/09/2016 left shoulder 3 view x-ray exam Findings: Total 3 images of the left shoulder were obtained. Bony structures are intact with no fracture or destructive change in the interval. Undersurface spurring at the acromion is significant and similar to previous exam. Left lung field is unremarkable other than apical pleural thickening. Left-sided dual-lead pacemaker or ICD is present. Stent material overlies the mediastinum presumably related to previous coronary artery stenting. Mediastinal clips and sternal wires are present. Joint spaces are adequate. Impression: No fracture or bony destruction. No significant change. Undersurface spurring at the lateral acromion is unchanged. Electronically signed by: Salvatore Sheets MD (08/06/2018 8:28 AM) [facility]
[2018-08-06] MEDS ORDERED: ONDANSETRON PF 4 MG/2 ML VIAL. IV PRN (08:45)
[2018-08-06] MEDS ORDERED: ONDANSETRON ODT 4 MG TAB.RAPDIS. PO PRN (08:45)
[2018-08-06] MEDS ORDERED: ACETAMINOPHEN 500 MG TABLET PO PRN (08:45)
[2018-08-06] MEDS ORDERED: FOLIC/VIT B COMP W-C (RENAL) TABLET. PO SCH (09:00)
[2018-08-06] MEDS ORDERED: PATCH REMOVAL. MC SCH (09:00)
[2018-08-06] MEDS ORDERED: predniSONE 10 MG TABLET PO SCH (09:00)
[2018-08-06] MEDS ORDERED: AMIODARONE HCL 200 MG TABLET. PO SCH (09:00)
--- NOTE | 2018-08-06 09:11 | PDOC ---
PROGRESS NOTES Subjective Subjective She admits continued pain left shoulder with any movement. Objective Objective Vital Signs Date Time Temp Pulse Resp B/P (MAP) Pulse Ox O2 Delivery O2 Flow Rate FiO2 08/06/18 07:00 97.8 59 18 98/58 (71) 95 Room Air 97.8 Intake and Output 08/06/18 07:00 Intake Total 845 ml Output Total 0 ml Balance 845 ml Intake Oral 520 ml Blood Product IV Normal Saline Flush 325 ml Output Urine Total 0 ml # Voids 2 Physical Exam Physical Exam With INR down to therapeutic range of 2 at her request,i have inected her left shoulder under aseptic skin technique with 2 ml of marcaine 0.25% and 1 ml of depomedrol 40 mg/1 ml. solution and she tolerated the procedure satisfactorily and post procedure she is moving her left upper extremity to some extent but still protecting it. Assessment Assessment Problems Medical Problems: (1) Supratherapeutic INR Status: Acute (2) Weakness Status: Acute Plan Plan of Care To have physical and occupational therapy see her and hopefully home with home health follow up in the next few days. Comment Review of Relevant I have reviewed the following items lionel (where applicable) has been applied. Labs Laboratory Tests Test 08/05/18 11:05 08/05/18 23:40 08/06/18 04:30 08/06/18 04:35 White Blood Count 8.7 x10^3/uL (4.0-11.0) 7.1 x10^3/uL (4.0-11.0) Red Blood Count 4.48 x10^6/uL (3.50-5.40) 4.22 x10^6/uL (3.50-5.40) Hemoglobin 14.6 g/dL (12.0-15.5) 13.7 g/dL (12.0-15.5) Hematocrit 41.9 % (36.0-47.0) 39.2 % (36.0-47.0) Mean Corpuscular Volume 94 fL (79-100) 93 fL (79-100) Mean Corpuscular Hemoglobin 33 pg (25-35) 32 pg (25-35) Mean Corpuscular Hemoglobin Concent 35 g/dL (31-37) 35 g/dL (31-37) Red Cell Distribution Width 14.7 % (11.5-14.5) 14.8 % (11.5-14.5) Platelet Count 184 x10^3/uL (140-400) 188 x10^3/uL (140-400) Neutrophils (%) (Auto) 69 % (31-73) 63 % (31-73) Lymphocytes (%) (Auto) 25 % (24-48) 29 % (24-48) Monocytes (%) (Auto) 5 % (0-9) 7 % (0-9) Eosinophils (%) (Auto) 0 % (0-3) 1 % (0-3) Basophils (%) (Auto) 0 % (0-3) 0 % (0-3) Neutrophils # (Auto) 6.0 x10^3uL (1.8-7.7) 4.4 x10^3uL (1.8-7.7) Lymphocytes # (Auto) 2.2 x10^3/uL (1.0-4.8) 2.1 x10^3/uL (1.0-4.8) Monocytes # (Auto) 0.4 x10^3/uL (0.0-1.1) 0.5 x10^3/uL (0.0-1.1) Eosinophils # (Auto) 0.0 x10^3/uL (0.0-0.7) 0.1 x10^3/uL (0.0-0.7) Basophils # (Auto) 0.0 x10^3/uL (0.0-0.2) 0.0 x10^3/uL (0.0-0.2) Prothrombin Time 63.7 SEC (11.7-14.0) 26.2 SEC (11.7-14.0) 22.0 SEC (11.7-14.0) Prothromb Time International Ratio 7.6 (0.8-1.1) 2.5 (0.8-1.1) 2.0 (0.8-1.1) Sodium Level 137 mmol/L (136-145) 139 mmol/L (136-145) Potassium Level 4.4 mmol/L (3.5-5.1) 3.7 mmol/L (3.5-5.1) Chloride Level 101 mmol/L (98-107) 103 mmol/L (98-107) Carbon Dioxide Level 26 mmol/L (21-32) 24 mmol/L (21-32) Anion Gap 10 (6-14) 12 (6-14) Blood Urea Nitrogen 15 mg/dL (7-20) 13 mg/dL (7-20) Creatinine 1.0 mg/dL (0.6-1.0) 0.9 mg/dL (0.6-1.0) Estimated GFR (Cockcroft-Gault) 52.6 59.4 BUN/Creatinine Ratio 15 (6-20) 14 (6-20) Glucose Level 107 mg/dL (70-99) 105 mg/dL (70-99) Calcium Level 9.5 mg/dL (8.5-10.1) 9.0 mg/dL (8.5-10.1) Total Bilirubin 1.1 mg/dL (0.2-1.0) 1.4 mg/dL (0.2-1.0) Aspartate Amino Transf (AST/SGOT) 28 U/L (15-37) 22 U/L (15-37) Alanine Aminotransferase (ALT/SGPT) 47 U/L (14-59) 39 U/L (14-59) Alkaline Phosphatase 91 U/L (46-116) 85 U/L (46-116) Troponin I Quantitative < 0.017 ng/mL (0.000-0.055) Total Protein 7.1 g/dL (6.4-8.2) 6.9 g/dL (6.4-8.2) Albumin 4.0 g/dL (3.4-5.0) 3.6 g/dL (3.4-5.0) Albumin/Globulin Ratio 1.3 (1.0-1.7) 1.1 (1.0-1.7) Laboratory Tests Test 08/05/18 11:05 08/05/18 23:40 08/06/18 04:30 08/06/18 04:35 White Blood Count 8.7 x10^3/uL (4.0-11.0) 7.1 x10^3/uL (4.0-11.0) Red Blood Count 4.48 x10^6/uL (3.50-5.40) 4.22 x10^6/uL (3.50-5.40) Hemoglobin 14.6 g/dL (12.0-15.5) 13.7 g/dL (12.0-15.5) Hematocrit 41.9 % (36.0-47.0) 39.2 % (36.0-47.0) Mean Corpuscular Volume 94 fL (79-100) 93 fL (79-100) Mean Corpuscular Hemoglobin 33 pg (25-35) 32 pg (25-35) Mean Corpuscular Hemoglobin Concent 35 g/dL (31-37) 35 g/dL (31-37) Red Cell Distribution Width 14.7 % (11.5-14.5) 14.8 % (11.5-14.5) Platelet Count 184 x10^3/uL (140-400) 188 x10^3/uL (140-400) Neutrophils (%) (Auto) 69 % (31-73) 63 % (31-73) Lymphocytes (%) (Auto) 25 % (24-48) 29 % (24-48) Monocytes (%) (Auto) 5 % (0-9) 7 % (0-9) Eosinophils (%) (Auto) 0 % (0-3) 1 % (0-3) Basophils (%) (Auto) 0 % (0-3) 0 % (0-3) Neutrophils # (Auto) 6.0 x10^3uL (1.8-7.7) 4.4 x10^3uL (1.8-7.7) Lymphocytes # (Auto) 2.2 x10^3/uL (1.0-4.8) 2.1 x10^3/uL (1.0-4.8) Monocytes # (Auto) 0.4 x10^3/uL (0.0-1.1) 0.5 x10^3/uL (0.0-1.1) Eosinophils # (Auto) 0.0 x10^3/uL (0.0-0.7) 0.1 x10^3/uL (0.0-0.7) Basophils # (Auto) 0.0 x10^3/uL (0.0-0.2) 0.0 x10^3/uL (0.0-0.2) Prothrombin Time 63.7 SEC (11.7-14.0) 26.2 SEC (11.7-14.0) 22.0 SEC (11.7-14.0) Prothromb Time International Ratio 7.6 (0.8-1.1) 2.5 (0.8-1.1) 2.0 (0.8-1.1) Sodium Level 137 mmol/L (136-145) 139 mmol/L (136-145) Potassium Level 4.4 mmol/L (3.5-5.1) 3.7 mmol/L (3.5-5.1) Chloride Level 101 mmol/L (98-107) 103 mmol/L (98-107) Carbon Dioxide Level 26 mmol/L (21-32) 24 mmol/L (21-32) Anion Gap 10 (6-14) 12 (6-14) Blood Urea Nitrogen 15 mg/dL (7-20) 13 mg/dL (7-20) Creatinine 1.0 mg/dL (0.6-1.0) 0.9 mg/dL (0.6-1.0) Estimated GFR (Cockcroft-Gault) 52.6 59.4 BUN/Creatinine Ratio 15 (6-20) 14 (6-20) Glucose Level 107 mg/dL (70-99) 105 mg/dL (70-99) Calcium Level 9.5 mg/dL (8.5-10.1) 9.0 mg/dL (8.5-10.1) Total Bilirubin 1.1 mg/dL (0.2-1.0) 1.4 mg/dL (0.2-1.0) Aspartate Amino Transf (AST/SGOT) 28 U/L (15-37) 22 U/L (15-37) Alanine Aminotransferase (ALT/SGPT) 47 U/L (14-59) 39 U/L (14-59) Alkaline Phosphatase 91 U/L (46-116) 85 U/L (46-116) Troponin I Quantitative < 0.017 ng/mL (0.000-0.055) Total Protein 7.1 g/dL (6.4-8.2) 6.9 g/dL (6.4-8.2) Albumin 4.0 g/dL (3.4-5.0) 3.6 g/dL (3.4-5.0) Albumin/Globulin Ratio 1.3 (1.0-1.7) 1.1 (1.0-1.7) Medications Current Medications Fentanyl Citrate (Fentanyl 2ml Vial) 50 mcg 1X ONCE IV ; Start 08/05/18 at 10: 15; Stop 08/05/18 at 10:16; Status DC Ondansetron HCl (Zofran) 4 mg 1X ONCE IV ; Start 08/05/18 at 10:15; Stop at 10:16; Status DC Fentanyl Citrate (Fentanyl 2ml Vial) 50 mcg 1X ONCE IM Last administered on at 11:23; Start 08/05/18 at 11:15; Stop 08/05/18 at 11:16; Status DC Ondansetron HCl (Zofran Odt) 4 mg 1X ONCE PO Last administered on 08/05/18at 11 :22; Start 08/05/18 at 11:15; Stop 08/05/18 at 11:16; Status DC Fentanyl Citrate (Fentanyl 2ml Vial) 50 mcg PRN Q2HR PRN IV PAIN Last administered on 08/05/18at 19:18; Start 08/05/18 at 12:30; Stop 08/06/18 at 12:29 Phytonadione (Mephyton Oral Soln) 5 mg 1X ONCE PO Last administered on at 13:02; Start 08/05/18 at 12:30; Stop 08/05/18 at 12:31; Status DC Info (FLU VACCINE SCREEN per RX) 1 each 1X ONCE MC ; Start 08/05/18 at 15:45; Stop 08/05/18 at 15:46; Status UNV Amiodarone HCl (Cordarone) 100 mg DAILY PO ; Start 08/06/18 at 09:00 Atorvastatin Calcium (Lipitor) 20 mg HS PO Last administered on 08/05/18at 21:17 ; Start 08/05/18 at 21:00 Vitamin B Complex/ Vitamin C (Elayne-Jemal) 1 tab DAILY PO ; Start 08/06/18 at 09: 00 Levothyroxine Sodium (Synthroid) 75 mcg DAILY07 PO ; Start 08/06/18 at 07:00 Lorazepam (Ativan) 0.5 mg PRN BID PRN PO ANXIETY / AGITATION; Start 08/05/18 at 15:45 Pantoprazole Sodium (Protonix) 40 mg DAILYAC PO ; Start 08/06/18 at 07:30 Isosorbide Mononitrate (Imdur) 60 mg QHS PO Last administered on 08/05/18at 21: 17; Start 08/05/18 at 21:00 Latanoprost (Xalatan) 1 drop QHS OU Last administered on 08/05/18at 21:17; Start 08/05/18 at 21:00 Magnesium Hydroxide (Milk Of Magnesia) 2,400 mg QHS PO Last administered on at 21:17; Start 08/05/18 at 21:00 Influenza Virus Vaccine (Afluria Trivalent 0532-3804 Syringe) 0.5 ml ONCE ONCE VAX IM ; Start 08/05/18 at 17:00; Stop 08/05/18 at 17:01; Status DC Methylprednisolone Acetate (DEPO-Medrol 40MG VIAL) 40 mg 1X ONCE INT ART ; Start 08/05/18 at 20:00; Stop 08/05/18 at 20:01; Status DC Bupivacaine HCl (Sensorcaine-Mpf 0.25%) 10 ml 1X ONCE IJ ; Start 08/05/18 at 20 :00; Stop 08/05/18 at 20:01; Status DC Prednisone (Prednisone) 10 mg DAILY PO ; Start 08/06/18 at 09:00 Lidocaine (Lidoderm) 1 patch QHS TD Last administered on 08/05/18at 21:18; Start 08/05/18 at 21:00 Miscellaneous (Lidoderm Patch Removal) 1 ea DAILY MC ; Start 08/06/18 at 09:00 Oxycodone/ Acetaminophen (Percocet 5/325) 1 tab PRN Q4HRS PRN PO PAIN Last administered on 08/06/18at 04:20; Start 08/05/18 at 19:30 Phytonadione (Vitamin K Ampule) 5 mg 1X ONCE SQ ; Start 08/06/18 at 00:00; Stop 08/06/18 at 00:01; Status DC Acetaminophen (Tylenol) 500 mg PRN Q6HRS PRN PO MILD PAIN / TEMP; Start at 08:45; Status UNV Ondansetron HCl (Zofran) 4 mg PRN Q6HRS PRN IV NAUSEA/VOMITING; Start 08/06/18 at 08:45; Status UNV Ondansetron HCl (Zofran Odt) 4 mg PRN Q6HRS PRN PO NAUSEA/VOMITING; Start 08/06 at 08:45; Status UNV Active Scripts Active Elayne-Jemal Tablet (Folic Acid/Vitamin B Comp W-C) 0.8 Mg Tablet 1 Tab PO DAILY 30 Days Reported Latanoprost 2.5 Ml Drops 1 Drop OP HS Coumadin (Warfarin Sodium) 1 Mg Tablet 1 Mg PO DAILY Ativan (Lorazepam) 0.5 Mg Tablet 0.5 Mg PO BID PRN Levothyroxine Sodium 75 Mcg Tablet 75 Mcg PO DAILYAC Milk Of Magnesia (Magnesium Hydroxide) 2,400 Mg/10 Ml Oral.susp 2,400 Mg PO QHS Atorvastatin Calcium 20 Mg Tablet 1 Mg PO HS Isosorbide Mononitrate Er (Isosorbide Mononitrate) 60 Mg Tab.er.24h 1 Mg PO HS Amiodarone Hcl 200 Mg Tablet 0.5 Tab PO DAILY Pantoprazole Sodium 40 Mg Tablet.dr 1 Tab PO DAILY LAST DOSE GIVEN: DATE: 2014 TIME: 9:00 AM NEXT DOSE DUE: DATE: 2014 TIME: 9:00 AM Vitals/I & O Vital Sign - Last 24 Hours 08/05/18 08/05/18 08/05/18 08/05/18 09:58 10:06 10:54 11:23 Temp 97.7 97.7 Pulse 60 60 58 Resp 22 18 18 16 B/P (MAP) 198/88 (124) 198/88 (124) 214/90 (131) Pulse Ox 100 100 100 97 O2 Delivery Room Air Room Air Room Air Room Air 08/05/18 08/05/18 08/05/18 08/05/18 11:24 11:58 13:00 14:02 Temp 97.5 97.5 Pulse 60 62 60 Resp 23 17 16 B/P (MAP) 192/83 (119) 206/96 (132) 151/55 (87) Pulse Ox 98 99 99 O2 Delivery Room Air Room Air Room Air Room Air 08/05/18 08/05/18 08/05/18 08/05/18 14:30 14:58 15:00 16:27 Temp 97.4 97.4 97.4 97.4 Pulse 60 60 Resp 16 16 B/P (MAP) 179/88 (118) 179/88 Pulse Ox 98 O2 Delivery Room Air Room Air Room Air 08/05/18 08/05/18 08/05/18 08/05/18 16:44 17:30 18:33 19:00 Temp 97.7 97.7 97.5 97.7 97.7 97.7 97.5 97.7 Pulse 60 60 60 60 Resp 16 16 16 18 B/P (MAP) 152/83 151/74 109/50 149/70 (96) Pulse Ox 98 O2 Delivery Room Air 08/05/18 08/05/18 08/05/18 08/05/18 19:18 20:00 21:17 23:00 Temp 97.6 97.6 Pulse 60 60 Resp 18 B/P (MAP) 149/70 115/67 (83) Pulse Ox 97 O2 Delivery Room Air Room Air Room Air 08/06/18 08/06/18 08/06/18 03:00 04:20 07:00 Temp 97.4 97.8 97.4 97.8 Pulse 60 59 Resp 18 18 B/P (MAP) 108/59 (75) 98/58 (71) Pulse Ox 94 97 95 O2 Delivery Room Air Room Air Room Air Intake and Output 08/05/18 08/05/18 08/06/18 15:00 23:00 07:00 Intake Total 445 ml 400 ml Output Total 0 ml Balance 445 ml 400 ml LILY GARRISON MD Aug 06, 2018 09:11
--- NOTE | 2018-08-06 10:01 | DISCH ---
DISCHARGE WITH HOME HEALTH DISCHARGE INFORMATION: Final Diagnosis: Problems Medical Problems: (1) Supratherapeutic INR Status: Acute (2) Weakness Status: Acute Condition on Discharge: Stable CODE STATUS: Code Status: Full HOME HEALTH: Face to Face: I certify this patient is under my care and that I, or a nurse practitioner or physician's assistant professor of mathematics working with me, had a face to face encounter that meets the physician face to face encounter requirements with this patient on []. Medical Complications: DJD Assisted For: Assess & Educate Safety, Medication Management, Pain Management, Other: Physical Therapy For: Evalulation/Treatment Occupational Therapy For: Evaluation/Treatment Home Health Aide For: Self-care Pt Meets Homebound Status: Unsteady balance w/ amb, POST DISCHARGE ORDERS: Activity Instructions for Disc: Activity as tolerated Weight Bearing Status after Di: As tolerated DIET AFTER DISCHARGE: Regular Wound/Incision Care: Keep wound/cast CDI CHECKS AFTER DISCHARGE: Checks after discharge: Check blood press - daily, Check your Temp as needed TREATMENT/EQUIPMENT ORDERS: Adaptive Equipment Issued: None CERTIFICATION STATEMENT: Certification Statement: Certification Statement: Based on the above finding, I certify that this patient is confined to the home and needs intermittent senior living care, physical therapy and/or speech therapy, or continues to need occupational therapy.~ This patient is under my care, and I have initiated the establishment of the plan of care.~ This patient will be followed by myself or a community physician who will periodically review the plan of care. Home Meds Active Scripts Folic Acid/Vitamin B Comp W-C (NAPOLEON-GREG TABLET) 0.8 Mg Tablet, 1 TAB PO DAILY for 30 Days, #30 TAB Prov:PERRY LOBO MD 04/04/17 Reported Medications Latanoprost (LATANOPROST) 2.5 Ml Drops, 1 DROP OP HS, EACH 08/05/18 Warfarin Sodium (COUMADIN) 1 Mg Tablet, 1 MG PO DAILY, TAB 08/05/18 Lorazepam (ATIVAN) 0.5 Mg Tablet, 0.5 MG PO BID PRN for ANXIETY / AGITATION, TAB 03/28/17 Levothyroxine Sodium (LEVOTHYROXINE SODIUM) 75 Mcg Tablet, 75 MCG PO DAILYAC for THYROID SUPPLEMENT, #30 TAB 0 Refills 10/14/16 Magnesium Hydroxide (MILK OF MAGNESIA) 2,400 Mg/10 Ml Oral.susp, 2400 MG PO QHS 08/09/16 Atorvastatin Calcium (ATORVASTATIN CALCIUM) 20 Mg Tablet, 1 MG PO HS, #30 08/09/16 Isosorbide Mononitrate (ISOSORBIDE MONONITRATE ER) 60 Mg Tab.er.24h, 1 MG PO HS , #30 08/09/16 Amiodarone Hcl (AMIODARONE HCL) 200 Mg Tablet, 0.5 TAB PO DAILY, #90 TAB 1 Refill 08/09/16 Pantoprazole Sodium (PANTOPRAZOLE SODIUM) 40 Mg Tablet.dr, 1 TAB PO DAILY, #30 TAB 3 Refills LAST DOSE GIVEN: DATE: 2014 TIME: 9:00 AM NEXT DOSE DUE: DATE: 2014 TIME: 9:00 AM 04/04/15 JOSHUA VINSON MD Aug 06, 2018 10:01
--- NOTE | 2018-08-06 10:04 | PDOC3 ---
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 Generalized weakness, unsteady gait Geriatric Final Diagnosis Problems Medical Problems: (1) Supratherapeutic INR Status: Acute (2) Weakness Status: Acute Brief Hospital Course Allergies Allergies Coded Allergies Type Severity Reaction Last Updated Verified iodine Allergy Intermediate 03/31/17 Yes codeine Adverse Reaction Intermediate N/V 03/31/17 Yes meperidine Adverse Reaction Intermediate N/V 03/31/17 Yes morphine Adverse Reaction Intermediate N/V 03/31/17 Yes Vital Signs Vital Signs Date Time Temp Pulse Resp B/P (MAP) Pulse Ox O2 Delivery O2 Flow Rate FiO2 08/06/18 07:00 97.8 59 18 98/58 (71) 95 Room Air 97.8 Lab Results Laboratory Tests Test 08/05/18 11:05 08/05/18 23:40 08/06/18 04:30 08/06/18 04:35 White Blood Count 8.7 x10^3/uL (4.0-11.0) 7.1 x10^3/uL (4.0-11.0) Red Blood Count 4.48 x10^6/uL (3.50-5.40) 4.22 x10^6/uL (3.50-5.40) Hemoglobin 14.6 g/dL (12.0-15.5) 13.7 g/dL (12.0-15.5) Hematocrit 41.9 % (36.0-47.0) 39.2 % (36.0-47.0) Mean Corpuscular Volume 94 fL (79-100) 93 fL (79-100) Mean Corpuscular Hemoglobin 33 pg (25-35) 32 pg (25-35) Mean Corpuscular Hemoglobin Concent 35 g/dL (31-37) 35 g/dL (31-37) Red Cell Distribution Width 14.7 % (11.5-14.5) 14.8 % (11.5-14.5) Platelet Count 184 x10^3/uL (140-400) 188 x10^3/uL (140-400) Neutrophils (%) (Auto) 69 % (31-73) 63 % (31-73) Lymphocytes (%) (Auto) 25 % (24-48) 29 % (24-48) Monocytes (%) (Auto) 5 % (0-9) 7 % (0-9) Eosinophils (%) (Auto) 0 % (0-3) 1 % (0-3) Basophils (%) (Auto) 0 % (0-3) 0 % (0-3) Neutrophils # (Auto) 6.0 x10^3uL (1.8-7.7) 4.4 x10^3uL (1.8-7.7) Lymphocytes # (Auto) 2.2 x10^3/uL (1.0-4.8) 2.1 x10^3/uL (1.0-4.8) Monocytes # (Auto) 0.4 x10^3/uL (0.0-1.1) 0.5 x10^3/uL (0.0-1.1) Eosinophils # (Auto) 0.0 x10^3/uL (0.0-0.7) 0.1 x10^3/uL (0.0-0.7) Basophils # (Auto) 0.0 x10^3/uL (0.0-0.2) 0.0 x10^3/uL (0.0-0.2) Prothrombin Time 63.7 SEC (11.7-14.0) 26.2 SEC (11.7-14.0) 22.0 SEC (11.7-14.0) Prothromb Time International Ratio 7.6 (0.8-1.1) 2.5 (0.8-1.1) 2.0 (0.8-1.1) Sodium Level 137 mmol/L (136-145) 139 mmol/L (136-145) Potassium Level 4.4 mmol/L (3.5-5.1) 3.7 mmol/L (3.5-5.1) Chloride Level 101 mmol/L (98-107) 103 mmol/L (98-107) Carbon Dioxide Level 26 mmol/L (21-32) 24 mmol/L (21-32) Anion Gap 10 (6-14) 12 (6-14) Blood Urea Nitrogen 15 mg/dL (7-20) 13 mg/dL (7-20) Creatinine 1.0 mg/dL (0.6-1.0) 0.9 mg/dL (0.6-1.0) Estimated GFR (Cockcroft-Gault) 52.6 59.4 BUN/Creatinine Ratio 15 (6-20) 14 (6-20) Glucose Level 107 mg/dL (70-99) 105 mg/dL (70-99) Calcium Level 9.5 mg/dL (8.5-10.1) 9.0 mg/dL (8.5-10.1) Total Bilirubin 1.1 mg/dL (0.2-1.0) 1.4 mg/dL (0.2-1.0) Aspartate Amino Transf (AST/SGOT) 28 U/L (15-37) 22 U/L (15-37) Alanine Aminotransferase (ALT/SGPT) 47 U/L (14-59) 39 U/L (14-59) Alkaline Phosphatase 91 U/L (46-116) 85 U/L (46-116) Troponin I Quantitative < 0.017 ng/mL (0.000-0.055) Total Protein 7.1 g/dL (6.4-8.2) 6.9 g/dL (6.4-8.2) Albumin 4.0 g/dL (3.4-5.0) 3.6 g/dL (3.4-5.0) Albumin/Globulin Ratio 1.3 (1.0-1.7) 1.1 (1.0-1.7) Laboratory Tests Test 08/05/18 11:05 08/05/18 23:40 08/06/18 04:30 08/06/18 04:35 White Blood Count 8.7 x10^3/uL (4.0-11.0) 7.1 x10^3/uL (4.0-11.0) Red Blood Count 4.48 x10^6/uL (3.50-5.40) 4.22 x10^6/uL (3.50-5.40) Hemoglobin 14.6 g/dL (12.0-15.5) 13.7 g/dL (12.0-15.5) Hematocrit 41.9 % (36.0-47.0) 39.2 % (36.0-47.0) Mean Corpuscular Volume 94 fL (79-100) 93 fL (79-100) Mean Corpuscular Hemoglobin 33 pg (25-35) 32 pg (25-35) Mean Corpuscular Hemoglobin Concent 35 g/dL (31-37) 35 g/dL (31-37) Red Cell Distribution Width 14.7 % (11.5-14.5) 14.8 % (11.5-14.5) Platelet Count 184 x10^3/uL (140-400) 188 x10^3/uL (140-400) Neutrophils (%) (Auto) 69 % (31-73) 63 % (31-73) Lymphocytes (%) (Auto) 25 % (24-48) 29 % (24-48) Monocytes (%) (Auto) 5 % (0-9) 7 % (0-9) Eosinophils (%) (Auto) 0 % (0-3) 1 % (0-3) Basophils (%) (Auto) 0 % (0-3) 0 % (0-3) Neutrophils # (Auto) 6.0 x10^3uL (1.8-7.7) 4.4 x10^3uL (1.8-7.7) Lymphocytes # (Auto) 2.2 x10^3/uL (1.0-4.8) 2.1 x10^3/uL (1.0-4.8) Monocytes # (Auto) 0.4 x10^3/uL (0.0-1.1) 0.5 x10^3/uL (0.0-1.1) Eosinophils # (Auto) 0.0 x10^3/uL (0.0-0.7) 0.1 x10^3/uL (0.0-0.7) Basophils # (Auto) 0.0 x10^3/uL (0.0-0.2) 0.0 x10^3/uL (0.0-0.2) Prothrombin Time 63.7 SEC (11.7-14.0) 26.2 SEC (11.7-14.0) 22.0 SEC (11.7-14.0) Prothromb Time International Ratio 7.6 (0.8-1.1) 2.5 (0.8-1.1) 2.0 (0.8-1.1) Sodium Level 137 mmol/L (136-145) 139 mmol/L (136-145) Potassium Level 4.4 mmol/L (3.5-5.1) 3.7 mmol/L (3.5-5.1) Chloride Level 101 mmol/L (98-107) 103 mmol/L (98-107) Carbon Dioxide Level 26 mmol/L (21-32) 24 mmol/L (21-32) Anion Gap 10 (6-14) 12 (6-14) Blood Urea Nitrogen 15 mg/dL (7-20) 13 mg/dL (7-20) Creatinine 1.0 mg/dL (0.6-1.0) 0.9 mg/dL (0.6-1.0) Estimated GFR (Cockcroft-Gault) 52.6 59.4 BUN/Creatinine Ratio 15 (6-20) 14 (6-20) Glucose Level 107 mg/dL (70-99) 105 mg/dL (70-99) Calcium Level 9.5 mg/dL (8.5-10.1) 9.0 mg/dL (8.5-10.1) Total Bilirubin 1.1 mg/dL (0.2-1.0) 1.4 mg/dL (0.2-1.0) Aspartate Amino Transf (AST/SGOT) 28 U/L (15-37) 22 U/L (15-37) Alanine Aminotransferase (ALT/SGPT) 47 U/L (14-59) 39 U/L (14-59) Alkaline Phosphatase 91 U/L (46-116) 85 U/L (46-116) Troponin I Quantitative < 0.017 ng/mL (0.000-0.055) Total Protein 7.1 g/dL (6.4-8.2) 6.9 g/dL (6.4-8.2) Albumin 4.0 g/dL (3.4-5.0) 3.6 g/dL (3.4-5.0) Albumin/Globulin Ratio 1.3 (1.0-1.7) 1.1 (1.0-1.7) Brief Hospital Course Ms. Banuelos is a 87 old female who lives at home, admitted because of severe left shoulder pain, denies trauma. Also admitted because of a high INR 7 with no overt signs of bleeding. That was treated and INR on discharge is 2. She is on Coumadin for pacer, cardiac issues. Known patient of cardiology. She had some left shoulder pain. Better with injections by physiatry. No fracture on x-rays. She does have some severe DJD of the cervical spine is evidence on CT neck but no signs of radiculopathy. She will go home today with home health. Lidoderm patch chart Rx on chart Consults performed physiatry-procedures performed left shoulder injection dc 32 mins, dw physiatry at bedside, watched pt walk around the halls Discharge Information Condition at Discharge: Improved, Stable Disposition/Orders: D/C to Home w/ HH Scheduled Amiodarone Hcl (Amiodarone Hcl) 200 Mg Tablet, 0.5 TAB PO DAILY, #90 Ref 1 ( Reported) Entered as Reported by: JOEL FAUST on 08/09/162158 Last Action: Continued on 08/05/181549 by CHIOMA MENESES Atorvastatin Calcium (Atorvastatin Calcium) 20 Mg Tablet, 1 MG PO HS, #30 ( Reported) Entered as Reported by: JOEL FAUST on 08/09/16 223 Last Action: Continued on 08/05/181549 by CHIOMA MENESES Folic Acid/Vitamin B Comp W-C (Elayne-Jemal Tablet) 0.8 Mg Tablet, 1 TAB PO DAILY for 30 Days, #30 Prescribed by: PERRY LOBO MD on 04/04/17 1420 Last Action: Continued on 08/05/181549 by CHIOMA MENESES Isosorbide Mononitrate (Isosorbide Mononitrate Er) 60 Mg Tab.er.24h, 1 MG PO HS , #30 (Reported) Entered as Reported by: JOEL FAUST on 08/09/162229 Last Action: Converted on 08/05/181549 by CHIOMA MENESES Latanoprost (Latanoprost) 2.5 Ml Drops, 1 DROP OP HS, (Reported) Entered as Reported by: ERNST VALDEZ on 08/05/18 1222 Last Taken: UNKNOWN on Unknown Date & Time Last Action: Converted on 08/05 by CHIOMA MENESES Levothyroxine Sodium (Levothyroxine Sodium) 75 Mcg Tablet, 75 MCG PO DAILYAC for THYROID SUPPLEMENT, #30 Ref 0 (Reported) Entered as Reported by: NOMI COLES on 10/14/16 1148 Last Action: Continued on 08/05/181549 by CHIOMA MENESES Magnesium Hydroxide (Milk Of Magnesia) 2,400 Mg/10 Ml Oral.susp, 2,400 MG PO QHS , (Reported) Entered as Reported by: JOEL FAUST on 08/09/16 2301 Last Action: Converted on 08/05/181549 by CHIOMA MENESES Pantoprazole Sodium (Pantoprazole Sodium) 40 Mg Tablet.dr, 1 TAB PO DAILY, #30 Ref 3 (Reported) LAST DOSE GIVEN: DATE: 2014 TIME: 9:00 AM NEXT DOSE DUE: DATE: 2014 TIME: 9:00 AM Entered as Reported by: LIEN ASIF on 04/04/15 1820 Last Action: Continued on 08/05/181549 by CHIOMA MENESES Warfarin Sodium (Coumadin) 1 Mg Tablet, 1 MG PO DAILY, (Reported) Entered as Reported by: ERNST VALDEZ on 08/05/18 1222 Last Taken: UNKNOWN on Unknown Date & Time Last Action: Reviewed on 1501 by CHIOMA MENESES Scheduled PRN Lorazepam (Ativan) 0.5 Mg Tablet, 0.5 MG PO BID PRN for ANXIETY / AGITATION, ( Reported) Entered as Reported by: WADE VALLE on 03/28/17 1317 Last Action: Continued on 08/05/181549 by JOSHUA WATSON MD Aug 06, 2018 10:04
[2018-08-06] MEDS: diazePAM 5 MG TABLET PO SCH ×2 (10:29→14:20)
[2018-08-06 11:00] VITALS: BP 117/60
--- NOTE | 2018-08-06 14:32 | PDOC ---
PROGRESS NOTES Subjective Subjective Left sided neck and left shoulder pain. Slightly improved after Left shoulder injection. Objective Objective Normal Strength ULE. Vital Signs Date Time Temp Pulse Resp B/P (MAP) Pulse Ox O2 Delivery O2 Flow Rate FiO2 08/06/18 11:00 97.8 60 18 117/60 (79) 95 Room Air 97.8 Intake and Output 08/06/18 07:00 Intake Total 845 ml Output Total 0 ml Balance 845 ml Intake Oral 520 ml Blood Product IV Normal Saline Flush 325 ml Output Urine Total 0 ml # Voids 2 Assessment Assessment Problems Medical Problems: (1) Supratherapeutic INR Status: Acute (2) Weakness Status: Acute Plan Plan of Care Patients pattern of pain suggests a left cervical radiculopathy. CT scan with Left sided neural foraminal narrowing at C4-5 C5-6. Marked degenerative change at C5-6. IRN was 7. Coumadin is currently being held. At this point I recommend cervical PT that could be done as an outpatient. Follow up with me as outpatient. Comment Review of Relevant I have reviewed the following items lionel (where applicable) has been applied. Labs Laboratory Tests Test 08/05/18 11:05 08/05/18 23:40 08/06/18 04:30 08/06/18 04:35 White Blood Count 8.7 x10^3/uL (4.0-11.0) 7.1 x10^3/uL (4.0-11.0) Red Blood Count 4.48 x10^6/uL (3.50-5.40) 4.22 x10^6/uL (3.50-5.40) Hemoglobin 14.6 g/dL (12.0-15.5) 13.7 g/dL (12.0-15.5) Hematocrit 41.9 % (36.0-47.0) 39.2 % (36.0-47.0) Mean Corpuscular Volume 94 fL (79-100) 93 fL (79-100) Mean Corpuscular Hemoglobin 33 pg (25-35) 32 pg (25-35) Mean Corpuscular Hemoglobin Concent 35 g/dL (31-37) 35 g/dL (31-37) Red Cell Distribution Width 14.7 % (11.5-14.5) 14.8 % (11.5-14.5) Platelet Count 184 x10^3/uL (140-400) 188 x10^3/uL (140-400) Neutrophils (%) (Auto) 69 % (31-73) 63 % (31-73) Lymphocytes (%) (Auto) 25 % (24-48) 29 % (24-48) Monocytes (%) (Auto) 5 % (0-9) 7 % (0-9) Eosinophils (%) (Auto) 0 % (0-3) 1 % (0-3) Basophils (%) (Auto) 0 % (0-3) 0 % (0-3) Neutrophils # (Auto) 6.0 x10^3uL (1.8-7.7) 4.4 x10^3uL (1.8-7.7) Lymphocytes # (Auto) 2.2 x10^3/uL (1.0-4.8) 2.1 x10^3/uL (1.0-4.8) Monocytes # (Auto) 0.4 x10^3/uL (0.0-1.1) 0.5 x10^3/uL (0.0-1.1) Eosinophils # (Auto) 0.0 x10^3/uL (0.0-0.7) 0.1 x10^3/uL (0.0-0.7) Basophils # (Auto) 0.0 x10^3/uL (0.0-0.2) 0.0 x10^3/uL (0.0-0.2) Prothrombin Time 63.7 SEC (11.7-14.0) 26.2 SEC (11.7-14.0) 22.0 SEC (11.7-14.0) Prothromb Time International Ratio 7.6 (0.8-1.1) 2.5 (0.8-1.1) 2.0 (0.8-1.1) Sodium Level 137 mmol/L (136-145) 139 mmol/L (136-145) Potassium Level 4.4 mmol/L (3.5-5.1) 3.7 mmol/L (3.5-5.1) Chloride Level 101 mmol/L (98-107) 103 mmol/L (98-107) Carbon Dioxide Level 26 mmol/L (21-32) 24 mmol/L (21-32) Anion Gap 10 (6-14) 12 (6-14) Blood Urea Nitrogen 15 mg/dL (7-20) 13 mg/dL (7-20) Creatinine 1.0 mg/dL (0.6-1.0) 0.9 mg/dL (0.6-1.0) Estimated GFR (Cockcroft-Gault) 52.6 59.4 BUN/Creatinine Ratio 15 (6-20) 14 (6-20) Glucose Level 107 mg/dL (70-99) 105 mg/dL (70-99) Calcium Level 9.5 mg/dL (8.5-10.1) 9.0 mg/dL (8.5-10.1) Total Bilirubin 1.1 mg/dL (0.2-1.0) 1.4 mg/dL (0.2-1.0) Aspartate Amino Transf (AST/SGOT) 28 U/L (15-37) 22 U/L (15-37) Alanine Aminotransferase (ALT/SGPT) 47 U/L (14-59) 39 U/L (14-59) Alkaline Phosphatase 91 U/L (46-116) 85 U/L (46-116) Troponin I Quantitative < 0.017 ng/mL (0.000-0.055) Total Protein 7.1 g/dL (6.4-8.2) 6.9 g/dL (6.4-8.2) Albumin 4.0 g/dL (3.4-5.0) 3.6 g/dL (3.4-5.0) Albumin/Globulin Ratio 1.3 (1.0-1.7) 1.1 (1.0-1.7) Laboratory Tests Test 08/05/18 23:40 08/06/18 04:30 08/06/18 04:35 Prothrombin Time 26.2 SEC (11.7-14.0) 22.0 SEC (11.7-14.0) Prothromb Time International Ratio 2.5 (0.8-1.1) 2.0 (0.8-1.1) White Blood Count 7.1 x10^3/uL (4.0-11.0) Red Blood Count 4.22 x10^6/uL (3.50-5.40) Hemoglobin 13.7 g/dL (12.0-15.5) Hematocrit 39.2 % (36.0-47.0) Mean Corpuscular Volume 93 fL (79-100) Mean Corpuscular Hemoglobin 32 pg (25-35) Mean Corpuscular Hemoglobin Concent 35 g/dL (31-37) Red Cell Distribution Width 14.8 % (11.5-14.5) Platelet Count 188 x10^3/uL (140-400) Neutrophils (%) (Auto) 63 % (31-73) Lymphocytes (%) (Auto) 29 % (24-48) Monocytes (%) (Auto) 7 % (0-9) Eosinophils (%) (Auto) 1 % (0-3) Basophils (%) (Auto) 0 % (0-3) Neutrophils # (Auto) 4.4 x10^3uL (1.8-7.7) Lymphocytes # (Auto) 2.1 x10^3/uL (1.0-4.8) Monocytes # (Auto) 0.5 x10^3/uL (0.0-1.1) Eosinophils # (Auto) 0.1 x10^3/uL (0.0-0.7) Basophils # (Auto) 0.0 x10^3/uL (0.0-0.2) Sodium Level 139 mmol/L (136-145) Potassium Level 3.7 mmol/L (3.5-5.1) Chloride Level 103 mmol/L (98-107) Carbon Dioxide Level 24 mmol/L (21-32) Anion Gap 12 (6-14) Blood Urea Nitrogen 13 mg/dL (7-20) Creatinine 0.9 mg/dL (0.6-1.0) Estimated GFR (Cockcroft-Gault) 59.4 BUN/Creatinine Ratio 14 (6-20) Glucose Level 105 mg/dL (70-99) Calcium Level 9.0 mg/dL (8.5-10.1) Total Bilirubin 1.4 mg/dL (0.2-1.0) Aspartate Amino Transf (AST/SGOT) 22 U/L (15-37) Alanine Aminotransferase (ALT/SGPT) 39 U/L (14-59) Alkaline Phosphatase 85 U/L (46-116) Total Protein 6.9 g/dL (6.4-8.2) Albumin 3.6 g/dL (3.4-5.0) Albumin/Globulin Ratio 1.1 (1.0-1.7) Medications Current Medications Fentanyl Citrate (Fentanyl 2ml Vial) 50 mcg 1X ONCE IV ; Start 08/05/18 at 10: 15; Stop 08/05/18 at 10:16; Status DC Ondansetron HCl (Zofran) 4 mg 1X ONCE IV ; Start 08/05/18 at 10:15; Stop at 10:16; Status DC Fentanyl Citrate (Fentanyl 2ml Vial) 50 mcg 1X ONCE IM Last administered on at 11:23; Start 08/05/18 at 11:15; Stop 08/05/18 at 11:16; Status DC Ondansetron HCl (Zofran Odt) 4 mg 1X ONCE PO Last administered on 08/05/18at 11 :22; Start 08/05/18 at 11:15; Stop 08/05/18 at 11:16; Status DC Fentanyl Citrate (Fentanyl 2ml Vial) 50 mcg PRN Q2HR PRN IV PAIN Last administered on 08/05/18at 19:18; Start 08/05/18 at 12:30; Stop 08/06/18 at 12:29 ; Status DC Phytonadione (Mephyton Oral Soln) 5 mg 1X ONCE PO Last administered on at 13:02; Start 08/05/18 at 12:30; Stop 08/05/18 at 12:31; Status DC Info (FLU VACCINE SCREEN per RX) 1 each 1X ONCE MC ; Start 08/05/18 at 15:45; Stop 08/05/18 at 15:46; Status UNV Amiodarone HCl (Cordarone) 100 mg DAILY PO Last administered on 08/06/18at 10:28 ; Start 08/06/18 at 09:00 Atorvastatin Calcium (Lipitor) 20 mg HS PO Last administered on 08/05/18at 21:17 ; Start 08/05/18 at 21:00 Vitamin B Complex/ Vitamin C (Elayne-Jemal) 1 tab DAILY PO Last administered on at 10:28; Start 08/06/18 at 09:00 Levothyroxine Sodium (Synthroid) 75 mcg DAILY07 PO Last administered on at 10:26; Start 08/06/18 at 07:00 Lorazepam (Ativan) 0.5 mg PRN BID PRN PO ANXIETY / AGITATION; Start 08/05/18 at 15:45 Pantoprazole Sodium (Protonix) 40 mg DAILYAC PO Last administered on 08/06/18at 10:27; Start 08/06/18 at 07:30 Isosorbide Mononitrate (Imdur) 60 mg QHS PO Last administered on 08/05/18at 21: 17; Start 08/05/18 at 21:00 Latanoprost (Xalatan) 1 drop QHS OU Last administered on 08/05/18 21:17; Start 08/05/18 at 21:00 Magnesium Hydroxide (Milk Of Magnesia) 2,400 mg QHS PO Last administered on 21:17; Start 08/05/18 at 21:00 Influenza Virus Vaccine (Afluria Trivalent [id number] Syringe) 0.5 ml ONCE ONCE VAX IM Last administered on 08/06/18at 10:31; Start 08/05/18 at 17:00; Stop at 17:01; Status DC Methylprednisolone Acetate (DEPO-Medrol 40MG VIAL) 40 mg 1X ONCE INT ART ; Start 08/05/18 at 20:00; Stop 08/05/18 at 20:01; Status DC Bupivacaine HCl (Sensorcaine-Mpf 0.25%) 10 ml 1X ONCE IJ ; Start 08/05/18 at 20 :00; Stop 08/05/18 at 20:01; Status DC Prednisone (Prednisone) 10 mg DAILY PO Last administered on 08/06/18at 10:28; Start 08/06/18 at 09:00 Lidocaine (Lidoderm) 1 patch QHS TD Last administered on 08/05/18at 21:18; Start 08/05/18 at 21:00 Miscellaneous (Lidoderm Patch Removal) 1 ea DAILY MC Last administered on at 09:00; Start 08/06/18 at 09:00 Oxycodone/ Acetaminophen (Percocet 5/325) 1 tab PRN Q4HRS PRN PO PAIN Last administered on 08/06/18at 04:20; Start 08/05/18 at 19:30 Phytonadione (Vitamin K Ampule) 5 mg 1X ONCE SQ ; Start 08/06/18 at 00:00; Stop 08/06/18 at 00:01; Status DC Acetaminophen (Tylenol) 500 mg PRN Q6HRS PRN PO MILD PAIN / TEMP; Start at 08:45 Ondansetron HCl (Zofran) 4 mg PRN Q6HRS PRN IV NAUSEA/VOMITING; Start 08/06/18 at 08:45 Ondansetron HCl (Zofran Odt) 4 mg PRN Q6HRS PRN PO NAUSEA/VOMITING; Start 08/06 at 08:45 Diazepam (Valium) 5 mg Q8HRS PO Last administered on 08/06/18at 14:20; Start at 09:00 Active Scripts Active Elayne-Jemal Tablet (Folic Acid/Vitamin B Comp W-C) 0.8 Mg Tablet 1 Tab PO DAILY 30 Days Reported Latanoprost 2.5 Ml Drops 1 Drop OP HS Coumadin (Warfarin Sodium) 1 Mg Tablet 1 Mg PO DAILY Ativan (Lorazepam) 0.5 Mg Tablet 0.5 Mg PO BID PRN Levothyroxine Sodium 75 Mcg Tablet 75 Mcg PO DAILYAC Milk Of Magnesia (Magnesium Hydroxide) 2,400 Mg/10 Ml Oral.susp 2,400 Mg PO QHS Atorvastatin Calcium 20 Mg Tablet 1 Mg PO HS Isosorbide Mononitrate Er (Isosorbide Mononitrate) 60 Mg Tab.er.24h 1 Mg PO HS Amiodarone Hcl 200 Mg Tablet 0.5 Tab PO DAILY Pantoprazole Sodium 40 Mg Tablet.dr 1 Tab PO DAILY LAST DOSE GIVEN: DATE: 2014 TIME: 9:00 AM NEXT DOSE DUE: DATE: 2014 TIME: 9:00 AM Vitals/I & O Vital Sign - Last 24 Hours 08/05/18 08/05/18 08/05/18 08/05/18 14:30 14:58 15:00 16:27 Temp 97.4 97.4 97.4 97.4 Pulse 60 60 Resp 16 16 B/P (MAP) 179/88 (118) 179/88 Pulse Ox 98 O2 Delivery Room Air Room Air Room Air 08/05/18 08/05/18 08/05/18 08/05/18 16:44 17:30 18:33 19:00 Temp 97.7 97.7 97.5 97.7 97.7 97.7 97.5 97.7 Pulse 60 60 60 60 Resp 16 16 16 18 B/P (MAP) 152/83 151/74 109/50 149/70 (96) Pulse Ox 98 O2 Delivery Room Air 08/05/18 08/05/18 08/05/18 08/05/18 19:18 20:00 21:17 23:00 Temp 97.6 97.6 Pulse 60 60 Resp 18 B/P (MAP) 149/70 115/67 (83) Pulse Ox 97 O2 Delivery Room Air Room Air Room Air 08/06/18 08/06/18 08/06/18 08/06/18 03:00 04:20 07:00 08:00 Temp 97.4 97.8 97.4 97.8 Pulse 60 59 Resp 18 18 B/P (MAP) 108/59 (75) 98/58 (71) Pulse Ox 94 97 95 O2 Delivery Room Air Room Air Room Air Room Air 08/06/18 08/06/18 10:28 11:00 Temp 97.8 97.8 Pulse 59 60 Resp 18 B/P (MAP) 98/58 117/60 (79) Pulse Ox 95 O2 Delivery Room Air Intake and Output 08/05/18 08/05/18 08/06/18 15:00 23:00 07:00 Intake Total 445 ml 400 ml Output Total 0 ml Balance 445 ml 400 ml BORIS AU MD Aug 06, 2018 14:32
[2018-08-06 15:00] VITALS: BP 117/60
--- NOTE | 2018-08-06 16:12 | PDOC ---
PROGRESS NOTES Assessment Problems Medical Problems: (1) Supratherapeutic INR Status: Acute (2) Weakness Status: Acute Severe left shoulder pain with painful movement of the left shoulder. X-ray negative. She is a little better after Dr. Saleh performed pain injection. 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 I find no evidence that she has had a new stroke. History of prior strokes and transient ischemic attacks as well as conversion disorder. Supratherapeutic INR Plan Orthopedic consult with Dr. Lawson who has seen her in the past. Instead Dr. Saleh saw her. I discussed the case with him and he would like her to stay in the hospital one more day but the patient strongly wants to leave. Dr. Saleh is willing to see her as outpatient. Eventually she may need MRI of the shoulder Dr. Singh has ordered some physical therapy and will see her in follow-up. Again, I do not think the cervical spine is the primary problem here. Continue current medications including statin Resume warfarin when INR appropriate Rehabilitation modalities. Subjective still has left shoulder pain Objective Vital Signs Date Time Temp Pulse Resp B/P (MAP) Pulse Ox O2 Delivery O2 Flow Rate FiO2 08/06/18 15:00 97.8 60 18 117/60 (79) 95 Room Air 97.8 Intake and Output 08/06/18 07:00 Intake Total 845 ml Output Total 0 ml Balance 845 ml Intake Oral 520 ml Blood Product IV Normal Saline Flush 325 ml Output Urine Total 0 ml # Voids 2 PHYSICAL EXAM Alert. Oriented to time, place and person. PERRL. EOMI. CN: no focal findings. Muscle tone: normal. Muscle strength: Still has severe pain with movement of the right shoulder, otherwise 5/5 DTR: 2+ Plantar reflex: Flexor Gait: not examined in bed. Sensory exam: no abnormal findings. No cerebellar signs elicited. Review of Relevant I have reviewed the following items lionel (where applicable) has been applied. Labs Laboratory Tests Test 08/05/18 11:05 08/05/18 23:40 08/06/18 04:30 08/06/18 04:35 White Blood Count 8.7 x10^3/uL (4.0-11.0) 7.1 x10^3/uL (4.0-11.0) Red Blood Count 4.48 x10^6/uL (3.50-5.40) 4.22 x10^6/uL (3.50-5.40) Hemoglobin 14.6 g/dL (12.0-15.5) 13.7 g/dL (12.0-15.5) Hematocrit 41.9 % (36.0-47.0) 39.2 % (36.0-47.0) Mean Corpuscular Volume 94 fL (79-100) 93 fL (79-100) Mean Corpuscular Hemoglobin 33 pg (25-35) 32 pg (25-35) Mean Corpuscular Hemoglobin Concent 35 g/dL (31-37) 35 g/dL (31-37) Red Cell Distribution Width 14.7 % (11.5-14.5) 14.8 % (11.5-14.5) Platelet Count 184 x10^3/uL (140-400) 188 x10^3/uL (140-400) Neutrophils (%) (Auto) 69 % (31-73) 63 % (31-73) Lymphocytes (%) (Auto) 25 % (24-48) 29 % (24-48) Monocytes (%) (Auto) 5 % (0-9) 7 % (0-9) Eosinophils (%) (Auto) 0 % (0-3) 1 % (0-3) Basophils (%) (Auto) 0 % (0-3) 0 % (0-3) Neutrophils # (Auto) 6.0 x10^3uL (1.8-7.7) 4.4 x10^3uL (1.8-7.7) Lymphocytes # (Auto) 2.2 x10^3/uL (1.0-4.8) 2.1 x10^3/uL (1.0-4.8) Monocytes # (Auto) 0.4 x10^3/uL (0.0-1.1) 0.5 x10^3/uL (0.0-1.1) Eosinophils # (Auto) 0.0 x10^3/uL (0.0-0.7) 0.1 x10^3/uL (0.0-0.7) Basophils # (Auto) 0.0 x10^3/uL (0.0-0.2) 0.0 x10^3/uL (0.0-0.2) Prothrombin Time 63.7 SEC (11.7-14.0) 26.2 SEC (11.7-14.0) 22.0 SEC (11.7-14.0) Prothromb Time International Ratio 7.6 (0.8-1.1) 2.5 (0.8-1.1) 2.0 (0.8-1.1) Sodium Level 137 mmol/L (136-145) 139 mmol/L (136-145) Potassium Level 4.4 mmol/L (3.5-5.1) 3.7 mmol/L (3.5-5.1) Chloride Level 101 mmol/L (98-107) 103 mmol/L (98-107) Carbon Dioxide Level 26 mmol/L (21-32) 24 mmol/L (21-32) Anion Gap 10 (6-14) 12 (6-14) Blood Urea Nitrogen 15 mg/dL (7-20) 13 mg/dL (7-20) Creatinine 1.0 mg/dL (0.6-1.0) 0.9 mg/dL (0.6-1.0) Estimated GFR (Cockcroft-Gault) 52.6 59.4 BUN/Creatinine Ratio 15 (6-20) 14 (6-20) Glucose Level 107 mg/dL (70-99) 105 mg/dL (70-99) Calcium Level 9.5 mg/dL (8.5-10.1) 9.0 mg/dL (8.5-10.1) Total Bilirubin 1.1 mg/dL (0.2-1.0) 1.4 mg/dL (0.2-1.0) Aspartate Amino Transf (AST/SGOT) 28 U/L (15-37) 22 U/L (15-37) Alanine Aminotransferase (ALT/SGPT) 47 U/L (14-59) 39 U/L (14-59) Alkaline Phosphatase 91 U/L (46-116) 85 U/L (46-116) Troponin I Quantitative < 0.017 ng/mL (0.000-0.055) Total Protein 7.1 g/dL (6.4-8.2) 6.9 g/dL (6.4-8.2) Albumin 4.0 g/dL (3.4-5.0) 3.6 g/dL (3.4-5.0) Albumin/Globulin Ratio 1.3 (1.0-1.7) 1.1 (1.0-1.7) Laboratory Tests Test 08/05/18 23:40 08/06/18 04:30 08/06/18 04:35 Prothrombin Time 26.2 SEC (11.7-14.0) 22.0 SEC (11.7-14.0) Prothromb Time International Ratio 2.5 (0.8-1.1) 2.0 (0.8-1.1) White Blood Count 7.1 x10^3/uL (4.0-11.0) Red Blood Count 4.22 x10^6/uL (3.50-5.40) Hemoglobin 13.7 g/dL (12.0-15.5) Hematocrit 39.2 % (36.0-47.0) Mean Corpuscular Volume 93 fL (79-100) Mean Corpuscular Hemoglobin 32 pg (25-35) Mean Corpuscular Hemoglobin Concent 35 g/dL (31-37) Red Cell Distribution Width 14.8 % (11.5-14.5) Platelet Count 188 x10^3/uL (140-400) Neutrophils (%) (Auto) 63 % (31-73) Lymphocytes (%) (Auto) 29 % (24-48) Monocytes (%) (Auto) 7 % (0-9) Eosinophils (%) (Auto) 1 % (0-3) Basophils (%) (Auto) 0 % (0-3) Neutrophils # (Auto) 4.4 x10^3uL (1.8-7.7) Lymphocytes # (Auto) 2.1 x10^3/uL (1.0-4.8) Monocytes # (Auto) 0.5 x10^3/uL (0.0-1.1) Eosinophils # (Auto) 0.1 x10^3/uL (0.0-0.7) Basophils # (Auto) 0.0 x10^3/uL (0.0-0.2) Sodium Level 139 mmol/L (136-145) Potassium Level 3.7 mmol/L (3.5-5.1) Chloride Level 103 mmol/L (98-107) Carbon Dioxide Level 24 mmol/L (21-32) Anion Gap 12 (6-14) Blood Urea Nitrogen 13 mg/dL (7-20) Creatinine 0.9 mg/dL (0.6-1.0) Estimated GFR (Cockcroft-Gault) 59.4 BUN/Creatinine Ratio 14 (6-20) Glucose Level 105 mg/dL (70-99) Calcium Level 9.0 mg/dL (8.5-10.1) Total Bilirubin 1.4 mg/dL (0.2-1.0) Aspartate Amino Transf (AST/SGOT) 22 U/L (15-37) Alanine Aminotransferase (ALT/SGPT) 39 U/L (14-59) Alkaline Phosphatase 85 U/L (46-116) Total Protein 6.9 g/dL (6.4-8.2) Albumin 3.6 g/dL (3.4-5.0) Albumin/Globulin Ratio 1.1 (1.0-1.7) Medications Current Medications Fentanyl Citrate (Fentanyl 2ml Vial) 50 mcg 1X ONCE IV ; Start 08/05/18 at 10: 15; Stop 08/05/18 at 10:16; Status DC Ondansetron HCl (Zofran) 4 mg 1X ONCE IV ; Start 08/05/18 at 10:15; Stop at 10:16; Status DC Fentanyl Citrate (Fentanyl 2ml Vial) 50 mcg 1X ONCE IM Last administered on at 11:23; Start 08/05/18 at 11:15; Stop 08/05/18 at 11:16; Status DC Ondansetron HCl (Zofran Odt) 4 mg 1X ONCE PO Last administered on 08/05/18at 11 :22; Start 08/05/18 at 11:15; Stop 08/05/18 at 11:16; Status DC Fentanyl Citrate (Fentanyl 2ml Vial) 50 mcg PRN Q2HR PRN IV PAIN Last administered on 08/05/18at 19:18; Start 08/05/18 at 12:30; Stop 08/06/18 at 12:29 ; Status DC Phytonadione (Mephyton Oral Soln) 5 mg 1X ONCE PO Last administered on at 13:02; Start 08/05/18 at 12:30; Stop 08/05/18 at 12:31; Status DC Info (FLU VACCINE SCREEN per RX) 1 each 1X ONCE MC ; Start 08/05/18 at 15:45; Stop 08/05/18 at 15:46; Status UNV Amiodarone HCl (Cordarone) 100 mg DAILY PO Last administered on 08/06/18at 10:28 ; Start 08/06/18 at 09:00 Atorvastatin Calcium (Lipitor) 20 mg HS PO Last administered on 08/05/18at 21:17 ; Start 08/05/18 at 21:00 Vitamin B Complex/ Vitamin C (Elayne-Jemal) 1 tab DAILY PO Last administered on at 10:28; Start 08/06/18 at 09:00 Levothyroxine Sodium (Synthroid) 75 mcg DAILY07 PO Last administered on at 10:26; Start 08/06/18 at 07:00 Lorazepam (Ativan) 0.5 mg PRN BID PRN PO ANXIETY / AGITATION; Start 08/05/18 at 15:45 Pantoprazole Sodium (Protonix) 40 mg DAILYAC PO Last administered on 08/06/18at 10:27; Start 08/06/18 at 07:30 Isosorbide Mononitrate (Imdur) 60 mg QHS PO Last administered on 08/05/18at 21: 17; Start 08/05/18 at 21:00 Latanoprost (Xalatan) 1 drop QHS OU Last administered on 08/05/18at 21:17; Start 08/05/18 at 21:00 Magnesium Hydroxide (Milk Of Magnesia) 2,400 mg QHS PO Last administered on at 21:17; Start 08/05/18 at 21:00 Influenza Virus Vaccine (Afluria Trivalent [id number] Syringe) 0.5 ml ONCE ONCE VAX IM Last administered on 08/06/18at 10:31; Start 08/05/18 at 17:00; Stop at 17:01; Status DC Methylprednisolone Acetate (DEPO-Medrol 40MG VIAL) 40 mg 1X ONCE INT ART ; Start 08/05/18 at 20:00; Stop 08/05/18 at 20:01; Status DC Bupivacaine HCl (Sensorcaine-Mpf 0.25%) 10 ml 1X ONCE IJ ; Start 08/05/18 at 20 :00; Stop 08/05/18 at 20:01; Status DC Prednisone (Prednisone) 10 mg DAILY PO Last administered on 08/06/18at 10:28; Start 08/06/18 at 09:00 Lidocaine (Lidoderm) 1 patch QHS TD Last administered on 08/05/18at 21:18; Start 08/05/18 at 21:00 Miscellaneous (Lidoderm Patch Removal) 1 ea DAILY MC Last administered on at 09:00; Start 08/06/18 at 09:00 Oxycodone/ Acetaminophen (Percocet 5/325) 1 tab PRN Q4HRS PRN PO PAIN Last administered on 08/06/18at 04:20; Start 08/05/18 at 19:30 Phytonadione (Vitamin K Ampule) 5 mg 1X ONCE SQ ; Start 08/06/18 at 00:00; Stop 08/06/18 at 00:01; Status DC Acetaminophen (Tylenol) 500 mg PRN Q6HRS PRN PO MILD PAIN / TEMP; Start at 08:45 Ondansetron HCl (Zofran) 4 mg PRN Q6HRS PRN IV NAUSEA/VOMITING; Start 08/06/18 at 08:45 Ondansetron HCl (Zofran Odt) 4 mg PRN Q6HRS PRN PO NAUSEA/VOMITING; Start 08/06 at 08:45 Diazepam (Valium) 5 mg Q8HRS PO Last administered on 08/06/18at 14:20; Start at 09:00 Active Scripts Active Elayne-Jemal Tablet (Folic Acid/Vitamin B Comp W-C) 0.8 Mg Tablet 1 Tab PO DAILY 30 Days Reported Latanoprost 2.5 Ml Drops 1 Drop OP HS Coumadin (Warfarin Sodium) 1 Mg Tablet 1 Mg PO DAILY Ativan (Lorazepam) 0.5 Mg Tablet 0.5 Mg PO BID PRN Levothyroxine Sodium 75 Mcg Tablet 75 Mcg PO DAILYAC Milk Of Magnesia (Magnesium Hydroxide) 2,400 Mg/10 Ml Oral.susp 2,400 Mg PO QHS Atorvastatin Calcium 20 Mg Tablet 1 Mg PO HS Isosorbide Mononitrate Er (Isosorbide Mononitrate) 60 Mg Tab.er.24h 1 Mg PO HS Amiodarone Hcl 200 Mg Tablet 0.5 Tab PO DAILY Pantoprazole Sodium 40 Mg Tablet.dr 1 Tab PO DAILY LAST DOSE GIVEN: DATE: 2014 TIME: 9:00 AM NEXT DOSE DUE: DATE: 2014 TIME: 9:00 AM Vitals/I & O Vital Sign - Last 24 Hours 08/05/18 08/05/18 08/05/18 08/05/18 16:27 16:44 17:30 18:33 Temp 97.4 97.7 97.7 97.5 97.4 97.7 97.7 97.5 Pulse 60 60 60 60 Resp 16 16 16 16 B/P (MAP) 179/88 152/83 151/74 109/50 08/05/18 08/05/18 08/05/18 08/05/18 19:00 19:18 20:00 21:17 Temp 97.7 97.7 Pulse 60 60 Resp 18 B/P (MAP) 149/70 (96) 149/70 Pulse Ox 98 O2 Delivery Room Air Room Air Room Air 08/05/18 08/06/18 08/06/18 08/06/18 23:00 03:00 04:20 07:00 Temp 97.6 97.4 97.8 97.6 97.4 97.8 Pulse 60 60 59 Resp 18 18 18 B/P (MAP) 115/67 (83) 108/59 (75) 98/58 (71) Pulse Ox 97 94 97 95 O2 Delivery Room Air Room Air Room Air Room Air 08/06/18 08/06/18 08/06/18 08/06/18 08:00 10:28 11:00 15:00 Temp 97.8 97.8 97.8 97.8 Pulse 59 60 60 Resp 18 18 B/P (MAP) 98/58 117/60 (79) 117/60 (79) Pulse Ox 95 95 O2 Delivery Room Air Room Air Room Air Intake and Output 08/05/18 08/05/18 08/06/18 15:00 23:00 07:00 Intake Total 445 ml 400 ml Output Total 0 ml Balance 445 ml 400 ml CHARLA HICKEY MD Aug 06, 2018 16:11
== END 2018-08-06 16:20 | disposition home health service (06) | DRG 556 ==
LOC: ER 09:58 → 5 SOUTH 12:10
PROVIDERS: ADMIT Family Medicine; ATTEND Family Medicine
DX: M25.512 Pain in left shoulder (principal); D68.59 Other primary thrombophilia; M47.812 Spondylosis without myelopathy or radiculopathy, cervical region; M50.30 Other cervical disc degeneration, unspecified cervical region; E78.00 Pure hypercholesterolemia, unspecified; Z96.653 Presence of artificial knee joint, bilateral; I25.10 Atherosclerotic heart disease of native coronary artery without angina pectoris; E03.9 Hypothyroidism, unspecified; H40.9 Unspecified glaucoma; M17.11 Unilateral primary osteoarthritis, right knee; F41.9 Anxiety disorder, unspecified; I10 Essential (primary) hypertension; Z79.01 Long term (current) use of anticoagulants; Z86.010 Personal history of colon polyps; I25.2 Old myocardial infarction; Z95.1 Presence of aortocoronary bypass graft; Z95.0 Presence of cardiac pacemaker; Z90.710 Acquired absence of both cervix and uterus; Z88.5 Allergy status to narcotic agent; Z88.8 Allergy status to other drugs, medicaments and biological substances; Z90.49 Acquired absence of other specified parts of digestive tract; Z95.5 Presence of coronary angioplasty implant and graft; Z86.73 Personal history of transient ischemic attack (TIA), and cerebral infarction without residual deficits; Z82.49 Family history of ischemic heart disease and other diseases of the circulatory system; Z82.3 Family history of stroke
CPT/HCPCS: 36415; 70450; 72125; 73030; 80053; 84484; 85025; 85610; 86850; 86900; 86901; 86927; 90471; 90756; 93005; J1030; J3010; J3490; J7512; P9017; Q0162; 97535; 99285-25; Q2035

== ENCOUNTER → 2018-09-04 | Outpatient (CLI) | payer MEDICARE, OTHER ==
[2018-08-06 15:00] VITALS: BP 117/60
[~2018-09-04] MED LIST changes: +LATA2.5D3 OP; +WARF1TAB74 PO
== END | disposition home or self-care (01) ==
LOC: LAB 12:18
PROVIDERS: ATTEND Psychiatry & Neurology Neurology with Special Qualifications in Child Neurology
DX: G30.1 Alzheimer's disease with late onset (principal)
CPT/HCPCS: 36415; 82607; 82746; 84443; 85651